=== PATIENT | male | born 1935 | race Caucasian/White ===

== ENCOUNTER 2017-02-24 21:02 | Inpatient (IN) ==
--- NOTE | 2017-02-24 21:29 | Emergency Department Note ---
Disposition Clinical Impression: Pleural effusion, Dizziness Dyspnea Qualifiers: Dyspnea type: unspecified Qualified Code(s): R06.00 - Dyspnea, unspecified Pulmonary edema Qualifiers: Chronicity: acute Qualified Code(s): J81.0 - Acute pulmonary edema Headache Qualifiers: Headache type: unspecified Headache chronicity pattern: unspecified pattern Intractability: not intractable Qualified Code(s): R51 - Headache Disposition: Still a Patient Condition: Fair Forms: ED Satisfaction Letter Time of Disposition: 22:55 Headache HPI - General Chief Complaint: ED Headache Stated Complaint: headache, limbs swelling Time Seen by Provider: 02/24/17 21:28 Mode of arrival: ambulatory Limitations: no limitations Nursing Notes Reviewed: Yes Vital Signs Reviewed: Yes - History of Present Illness HPI Narrative: Patient is an 81 year old male with PMHx of HTN, CAD with stents, chronic headache and dizziness for months. He presents today accompanied with daughter. They have several concerns today. First concern is worsening pitting pedal edema bilaterally. Second concern is worsening of chronic headache over the past week with increased light headedness. Denies vertigo, chest pain, fevers, N/V/D, abdominal pain. Does admit to dyspnea with exertion. Patient states he has had daily headaches for months, occur almost every day, localized in frontal aspect of the head. He does not take any medications for headache. He denies any numbness, tingling, weakness. He does admit to some blurred vision which is new for his usual headaches. Pain Scale: 8 - Related Data Allergies Allergy/AdvReac Type Severity Reaction Status Date / Time No Known Allergies Allergy Verified 02/24/17 21:23 All systems ED: reviewed and negative except as stated. Constitutional: Denies: fever Cardiovascular: Reports: dyspnea on exertion. Denies: chest pain, palpitations Respiratory: Reports: dyspnea. Denies: cough, wheezes, hemoptysis Gastrointestinal: Denies: abdominal pain, nausea, vomiting, diarrhea Genitourinary: Denies: urgency, dysuria, frequency Musculoskeletal: Reports: other. Denies: neck pain Neurological: Reports: headache. Denies: weakness, numbness, paresthesias Headache PMH - Past Medical History Medical history: Reports: coronary artery disease, hyperlipidemia, hypertension , migraine, myocardial infarction, other Psychiatric history: Reports: no psych history - Social History Smoking Status: Former smoker Alcohol use: Reports: occasionally Drug use: Reports: none Physical Exam - General Limitations: no limitations General appearance: alert - Head Head exam: atraumatic, normocephalic, normal inspection - Eye Eye exam: Present: normal appearance, PERRL, EOMI - ENT ENT exam: normal exam, normal oropharynx, mucous membranes moist - Neck Neck exam: Present: normal inspection, full ROM, trachea midline. Absent: tenderness, meningismus - Chest Chest inspection: Present: normal inspection, symmetric chest wall rise - Respiratory Respiratory exam: Present: normal lung sounds bilaterally, other (mild crackle in bilateral LL) - Cardiovascular Cardiovascular exam: Present: regular rate, normal rhythm, normal heart sounds - Abdominal Exam Abdominal exam: Present: soft, Non-Tender. Absent: tenderness, distention, guarding, rebound, rigidity - Extremities Exam Extremities exam: Present: full ROM, pedal edema (pitting edema of bilateral LE) . Absent: tenderness, calf tenderness - Neurological Exam Neurological exam: Present: alert, oriented X3, CN II-XII intact. Absent: motor sensory deficit - Psychiatric Psychiatric exam: Present: normal affect, normal mood - Skin Skin exam: Present: warm, dry, intact, normal color Course Course Narrative: Hypertensive on presentation. Otherwise, the rest of the vitals WNL. Lungs show mild crackles in bilateral LL. Pitting pedal edema bilateral LE. No focal neuro deficits. No neck tenderness of meningeal signs. WIll obtain head CT due to worsened headache with blurred vision. Will also obtain cardiac workup due to dyspnea on exertion, EKG, CXR, trop. 22:55 CXR shows pleural effusions/pulm edema. LAbs pending. EKG showed LBBB. WIll sign out to Dr. Osorio and Dr. Myles Tavera for further care and dispo. Recommend admisison for fluid over. Patient given lasix. Vital Signs Temperature 98.2 F 02/24/17 21:23 Pulse Rate 69 02/24/17 21:23 Respiratory Rate 20 02/24/17 21:23 Blood Pressure 191/80 02/24/17 21:23 O2 Sat by Pulse Oximetry 95 02/24/17 21:23 Temperature 98.2 F 02/24/17 21:23 Pulse Rate 74 02/24/17 22:21 Respiratory Rate 18 02/24/17 22:21 Blood Pressure 188/89 02/24/17 22:21 O2 Sat by Pulse Oximetry 96 02/24/17 22:21 Oxygen Delivery Oxygen Delivery Room Air Headache - MDM Narrative Medical decision making narrative: Hypertensive on presentation. Otherwise, the rest of the vitals WNL. Lungs show mild crackles in bilateral LL. Pitting pedal edema bilateral LE. No focal neuro deficits. No neck tenderness of meningeal signs. WIll obtain head CT due to worsened headache with blurred vision. Will also obtain cardiac workup due to dyspnea on exertion, EKG, CXR, trop. 22:55 CXR shows pleural effusions/pulm edema. LAbs pending. EKG showed LBBB. WIll sign out to Dr. Osorio and Dr. Myles Tavera for further care and dispo. Recommend admisison for fluid over. Patient given lasix. - Medical Records Medical records reviewed: Yes I reviewed the patient's medical records. - Lab Data Lab results reviewed: Yes I reviewed the patient's lab results. - Radiology Data Radiology results reviewed: Yes I reviewed the patient's radiology results. Head CT 02/24/17 21:46 IMPRESSION: No hemorrhage or mass. Underlying atrophy with periventricular and scattered frontal parietal white matter disease, likely due to small-vessel ischemic change Trace mastoid disease D/ / Wilfredo Mandujano MD / Wilfredo Mandujano MD Interpreting Provider: Wilfredo Mandujano MD - EKG Data EKG attestation: Yes I reviewed and interpreted this EKG. EKG results narrative: 02/24/17 at 21:59. NSR, LBBB. Rate 65. Pr 181. QRS 161. QTC 467. Left axis deviation. WIdened QRS. No previous EKG for comparison. S.B.A.R. - S.B.A.R. Situation: Demographics, MOA Background: Presenting Complaint, Relevant PMH, Meds, & Allergies Assessment: Vital Signs, Course and respsone to treatment, Exam Concerns, Patient/Family Expectation, Pertinant Lab Results, Outstanding Labs Recommendation: Barrier(s) to disposition, Recommendation based on pending studies, treatments, or consults S.B.A.R. Report Given to: Dr. Osorio, Dr. Myles Davis Repor Time: 22:56
[2017-02-24] MEDS ORDERED: Furosemide 40 MG/4 ML VIAL IVP ONE (22:51)
[2017-02-24 22:58] LABS: Hematocrit 29.6 % (37.5-50.1); Hemoglobin 9.8 g/dL (12.9-16.9); Immature Platelets 8.3 % (1.1-6.1); Mean Corpuscular HGB Conc 33.1 g/dL (31.6-35.5); Mean Corpuscular Hemoglobin 34.4 pg (28.0-33.3); Mean Corpuscular Volume 103.9 fL (83.0-100.0); Mean Platelet Volume 11.6 fL (9.4-12.4); Nucleated Red Blood Cells 0.6 /100 WBC (0); Platelet Count 133 K/mcL (140-400); Red Blood Count 2.85 M/mcL (4.19-5.50); Red Cell Distribution Width 20.7 % (11.5-14.5)
[2017-02-24 23:11] LABS: BUN/Creatinine Ratio 35 (6-26); Blood Urea Nitrogen 41 mg/dL (8-26); Calcium 8.5 mg/dL (8.6-10.8); Carbon Dioxide 32 mEq/L (19-29); Chloride 102 mEq/L (98-109); Glucose 195 mg/dL (70-99); Osmolality,Calculated 315 (280-300); Sodium 145 mEq/L (136-145); eGFR For African Americans > 60 (> 60); eGFR For Non-African Americans 59 (> 60)
[2017-02-24 23:18] LABS: Lymphocytes # 2.3 K/mcL (0.6-4.6); Neutrophils # 11.3 K/mcL (1.6-8.9)
[2017-02-24 23:33] LABS: Potassium 2.5 mEq/L (3.5-4.5)
[2017-02-24] MEDS ORDERED: Aspirin 81 MG TAB.CHEW PO ONE (23:36)
[2017-02-24] MEDS ORDERED: Heparin 25,000 UNIT/500 ML D5W 25,000 UNIT/500 ML MLS IVC SCH (23:45)
[2017-02-24] MEDS ORDERED: *HR* Heparin 5,000 UNIT/ML VIAL IVP ONE (23:55)
[2017-02-24] MEDS ORDERED: *HR* Heparin 5,000 UNIT/ML VIAL IVP PRN ×2 (23:55)
--- NOTE | 2017-02-25 00:01 | Emergency Department Note ---
Disposition Clinical Impression: Pleural effusion, NSTEMI (non-ST elevated myocardial infarction), Hypokalemia Pulmonary edema Qualifiers: Chronicity: acute Qualified Code(s): J81.0 - Acute pulmonary edema Disposition: Admitted As Inpatient Condition: Fair Referrals: Arie Willis DO [Primary Care Provider] - Forms: ED Satisfaction Letter Time of Disposition: 00:01 General Adult HPI - General Chief complaint: ED Headache Stated complaint: headache, limbs swelling Time Seen by Provider: 02/24/17 21:28 Source: patient Mode of arrival: ambulatory Limitations: no limitations Nursing Notes Reviewed: Yes Vital Signs Reviewed: Yes - History of Present Illness HPI Narrative: 81 year old male who states that he has had increased fluid overload the past few days without diagnosis of CHF. patinet states that he did have chest pain two doays ago which was mild and assocaited with diaphoresis without nausea or vomiting. He is chest pain free now. PAtinet states that he has increased exertional dyspnea and has two cardiac stents from 2001. We accepted sign out from the night team for further evaluation. Pain Scale: 8 - Related Data Allergies Allergy/AdvReac Type Severity Reaction Status Date / Time No Known Allergies Allergy Verified 02/24/17 21:23 Constitutional: Denies: fever Cardiovascular: Reports: dyspnea on exertion. Denies: chest pain, palpitations Respiratory: Reports: dyspnea. Denies: cough, wheezes, hemoptysis Gastrointestinal: Denies: abdominal pain, nausea, vomiting, diarrhea Genitourinary: Denies: urgency, dysuria, frequency Musculoskeletal: Reports: other. Denies: neck pain Neurological: Reports: headache. Denies: weakness, numbness, paresthesias Past Medical History - Past Medical History Medical history: Reports: coronary artery disease, hyperlipidemia, hypertension , migraine, myocardial infarction, other Psychiatric history: Reports: no psych history - Social History Smoking Status: Former smoker Smokeless Tobacco Status: Yes Alcohol use: Reports: occasionally Drug use: Reports: none Physical Exam - General Limitations: no limitations General appearance: alert - Head Head exam: atraumatic, normocephalic, normal inspection - Eye Eye exam: Present: normal appearance, PERRL, EOMI - Expanded Eye Exam Pupils: Left: reactive - ENT ENT exam: normal exam, normal oropharynx, mucous membranes moist - Expanded ENT Exam External ear exam: Present: normal external inspection Mouth exam: Present: normal external inspection Teeth exam: Present: normal inspection Throat exam: Present: normal inspection - Neck Neck exam: Present: normal inspection, full ROM, trachea midline - Chest Chest inspection: Present: normal inspection, symmetric chest wall rise - Respiratory Respiratory exam: Present: normal lung sounds bilaterally - Cardiovascular Cardiovascular exam: Present: regular rate, normal rhythm, normal heart sounds - Abdominal Exam Abdominal exam: Present: soft, Non-Tender. Absent: tenderness, distention, guarding, rebound, rigidity - Extremities Exam Extremities exam: Present: normal inspection, full ROM. Absent: tenderness, pedal edema - Expanded Upper Extremity Exam Shoulder exam: Present: normal inspection, full ROM Arm exam: Present: normal inspection, full ROM Elbow exam: Present: normal inspection, full ROM Forearm/Wrist exam: Present: normal inspection, full ROM Hand exam: Present: normal inspection, full ROM Vascular exam: Normal: capillary refill, radial pulse - Expanded Lower Extremity Exam Hip/Pelvis exam: Present: normal inspection, full ROM Upper leg exam: Present: normal inspection, full ROM Knee exam: Present: normal inspection, full ROM Lower leg exam: Present: normal inspection, full ROM, other (pedal edema (+)3) Ankle exam: Present: normal inspection, full ROM Foot/toe exam: Present: normal inspection, full ROM Neurovascular/Tendon exam: Absent: motor deficit, sensory deficit, tendon deficit - Back Exam Back exam: Present: normal inspection, full ROM. Absent: tenderness - Neurological Exam Neurological exam: Present: alert, oriented X3 - Expanded Neurological Exam Patient oriented to: Present: person, place, time Coma Scale Eye Opening: Spontaneous Coma Scale Motor Response: Obeys Commands Coma Scale Verbal Response: Oriented Coma Scale Total: 15 - Psychiatric Psychiatric exam: Present: normal affect, normal mood - Skin Skin exam: Present: warm, dry, intact, normal color Course Course Narrative: accepted sign out form night team. Elevated troponin and hypokalemia. Will replace and consult cards - Consultations Consultation #1: discussed case with Dr. Kirk and he agrees with starting heparin therapy. Time: 23:45 Consultation #2: discussed case with Dr. Hill and he accepts patient to medicine service Time: 00:00 Vital Signs Temperature 98.2 F 02/24/17 21:23 Pulse Rate 69 02/24/17 21:23 Respiratory Rate 20 02/24/17 21:23 Blood Pressure 191/80 02/24/17 21:23 O2 Sat by Pulse Oximetry 95 02/24/17 21:23 Temperature 98.2 F 02/24/17 21:23 Pulse Rate 63 02/24/17 23:46 Respiratory Rate 18 02/24/17 23:46 Blood Pressure 181/83 02/24/17 23:46 O2 Sat by Pulse Oximetry 95 02/24/17 23:46 Oxygen Delivery Oxygen Delivery Room Air Medical Decision Making - Lab Data Result diagrams: 02/24/17 22:46 02/24/17 22:46 Lab Results 02/24/17 02/24/17 02/24/17 Range/Units 22:46 22:46 22:46 WBC 14.1 H (4.3-11.1) K/mcL RBC 2.85 L (4.19-5.50) M/mcL Hgb 9.8 L (12.9-16.9) g/dL Hct 29.6 L (37.5-50.1) % MCV 103.9 H (83.0-100.0) fL MCH 34.4 H (28.0-33.3) pg MCHC 33.1 (31.6-35.5) g/dL RDW 20.7 H (11.5-14.5) % Plt Count 133 L (140-400) K/mcL MPV 11.6 (9.4-12.4) fL Seg Neutrophils % 80.0 % Lymphocytes % 16.0 % Metamyelocytes % 4.0 H (0) % Neutrophils # 11.3 H (1.6-8.9) K/mcL Lymphocytes # 2.3 (0.6-4.6) K/mcL Nucleated RBCs/100 WBC 0.6 H (0) /100 WBC Immature Plt Fraction 8.3 H (1.1-6.1) % PT (9.4-12.1) Seconds INR APTT (26.0-36.0) Seconds Sodium 145 (136-145) mEq/L Potassium 2.5 L* (3.5-4.5) mEq/L Chloride 102 (98-109) mEq/L Carbon Dioxide 32 H (19-29) mEq/L BUN 41 H (8-26) mg/dL Creatinine 1.18 (0.72-1.25) mg/dL Est GFR ( Amer) > 60 (> 60) Est GFR (Non-Af Amer) 59 L (> 60) BUN/Creatinine Ratio 35 H (6-26) Glucose 195 H (70-99) mg/dL Calculated Osmolality 315 H (280-300) Calcium 8.5 L (8.6-10.8) mg/dL Troponin I 0.97 H* (0-0.03) ng/mL B-Natriuretic Peptide (0-100) pg/mL 02/24/17 02/24/17 Range/Units 22:46 23:11 WBC (4.3-11.1) K/mcL RBC (4.19-5.50) M/mcL Hgb (12.9-16.9) g/dL Hct (37.5-50.1) % MCV (83.0-100.0) fL MCH (28.0-33.3) pg MCHC (31.6-35.5) g/dL RDW (11.5-14.5) % Plt Count (140-400) K/mcL MPV (9.4-12.4) fL Seg Neutrophils % % Lymphocytes % % Metamyelocytes % (0) % Neutrophils # (1.6-8.9) K/mcL Lymphocytes # (0.6-4.6) K/mcL Nucleated RBCs/100 WBC (0) /100 WBC Immature Plt Fraction (1.1-6.1) % PT 11.4 (9.4-12.1) Seconds INR 1.1 APTT 21.7 L (26.0-36.0) Seconds Sodium (136-145) mEq/L Potassium (3.5-4.5) mEq/L Chloride (98-109) mEq/L Carbon Dioxide (19-29) mEq/L BUN (8-26) mg/dL Creatinine (0.72-1.25) mg/dL Est GFR ( Amer) (> 60) Est GFR (Non-Af Amer) (> 60) BUN/Creatinine Ratio (6-26) Glucose (70-99) mg/dL Calculated Osmolality (280-300) Calcium (8.6-10.8) mg/dL Troponin I (0-0.03) ng/mL B-Natriuretic Peptide 501 H (0-100) pg/mL Attestation Statement - Attestation Attestation: I personally interviewed and examined this patient and my medical decision- making was reviewed with the ED Resident Physician, Dr. Osorio. I agree with the documented findings, disposition and treatment plan as described except to the extent set forth below. Patient was a signout from Dr. Winchester at 11 PM tonight, patient's an 81-year-old white male with a remote history of ischemic heart disease with prior stent placement. Patient presented tonight with bilateral lower extremity edema and reports of chest pressure and heaviness that he experienced 48 hours ago which has since resolved with no recurrences. Labs and even ordered patient had been given a dose of Lasix. EKG on arrival showed a left bundle branch block with no prior EKG for comparison so unclear if this was new. Patient with an elevated troponin. On our evaluation patient again denies any form of chest pain pressure or heaviness, no shortness of breath, no diaphoresis, no nausea vomiting patient is in no acute distress here. Patient primarily here with the visible lower extremity pitting edema in his legs bilaterally. X-ray shows evidence of pulmonary edema, CHF and patient also has an elevated BNP. Patient denies any prior history of congestive heart failure in the past. The patient had been seen and taken care of back in [address] Diaz at [facility]. Patient and his live locally and have never followed up with a local authorization specialist and he has not been seen or evaluated by a authorization specialist since that time. The positive troponin and left bundle branch block we immediately notified cardiology and spoke with Dr. Kim upon receiving the abnormal troponin. We did send a copy of EKG to him so he is aware of this left bundle branch morphology. His recommendations were as the patient was pain-free at this time that we start heparin was also given aspirin and admit the patient for medical management at this time. He will consult on the patient and patient was admitted to the medical service. Patient remains chest pain-free and hemodynamically stable at this time.
[2017-02-25 00:24] LABS: INR 1.1; Prothrombin Time 11.4 Seconds (9.4-12.1)
[2017-02-25 00:27] LABS: Activated Partial Thrombo Time 21.7 Seconds (26.0-36.0)
--- NOTE | 2017-02-25 01:07 | Internal Med History&Physical ---
<Ori Blanco - Last Filed: 02/25/17 06:09> Date of Encounter: 02/25/17 Time of Encounter: 01:00 Assessment and Plan (1) CHF (congestive heart failure) Current visit: Yes Status: Acute -No history of CHF. Does not remember ever getting an ECHO. Hasn't seen senior hardware design engineer in 14 years. -Pitting edema to patella. -BNP >500. One time dose lasixs given in ED. Hold Lasixs till K improved. Plan -Will get ECHO -Hold Lasix Qualifiers: Congestive heart failure type: unspecified congestive heart failure type Congestive heart failure chronicity: unspecified congestive heart failure chronicity Qualified Code(s): I50.9 - Heart failure, unspecified (2) Hypokalemia Current visit: Yes Status: Acute -Denies CP, SOB -Takes home HCTZ, likely culprit -IV K replacement started in ED and lasixs given for CHF. -Consider alternative to Lasix and K replacement Plan -Replace K IV and oral -redraw labs in morning -Hold lasixs for now. (3) NSTEMI (non-ST elevated myocardial infarction) Current visit: Yes Status: Acute -Patient complained of CP 2 days ago and ignored it. Currently denies CP or SOB -EKG changes? No old one to compare -Elevated trop, CXR shows bilateral pulmonary edema. -Cardiology consulted, patient placed on heparin drip following consult call Plan -Continue heparin drip -Redraw trop -Continue medication -Follow cardio consult, thank you. (4) Pulmonary edema Current visit: Yes Status: Acute -Revealed on CXR. -Patient has mild cough. Non productive. Denies fever. Lung sounds unimpressive. However, does have elevated WBC -WBC could be chronic, no previous measurement. Patient does not show signs or symptoms of infection. WIll continue to trend. Plan -See above. Qualifiers: Chronicity: acute Qualified Code(s): J81.0 - Acute pulmonary edema (5) Hyperglycemia Current visit: Yes Status: Acute -No history of DM -Elevated BS. WIll redraw and evaluate -Will get HA1C (6) Leukocytosis Current visit: Yes Status: Acute -WBC 14 with left shift...no previous record to compare to. Unsure if infectious or reactive. -Clinically looks fine and not concern for pneumonia. -No F/N/V/D, no recent abx use. -Will not start abx at this time. Will get labs to evaluate Plan -procal, lactate, redraw labs Qualifiers: Leukocytosis type: unspecified Qualified Code(s): D72.829 - Elevated white blood cell count, unspecified Internal Medicine - H&P: HPI Chief complaint: Edema and Headache Admitted From: Emergency Dept Plans for Post Hospital Care: Home History of present illness: Mr. Sterling is a 81 year old male admitted for NSTEMI, Elevated BNP, Peripheral Edema. Patient initially presented to the ED with complaints of bilateral lower leg edema and headache. Headache for months. Located in the front. Dull ache. Not worse today compared to yesterday. Admits to mild bilateral blurry vision. Denies SOB, CP, peripheral weakness, trouble speaking or swallowing. No history of SD/Clots. CT scan in ED negative for mass or acute bleed. The bilateral lower edema has been present for roughly 9 days, got worse over the last couple of days. He has never had this problem before. His last visit to a senior hardware design engineer was 13 years ago for 2 cardiac stent placements. Did complain of CP 2 days ago that he ignored. Troponin drawn. Found to be elevated. EKG showed possible LBBB, no old EKG to be obtained. Cardio called. Patient recommended to be placed on heparin drip. Past Med Surg Social Fam HX - Past Medical History Medical history: coronary artery disease, hyperlipidemia, hypertension, migraine , myocardial infarction, other Psychiatric history: no psych history - Past Surgical History Surgical History: angioplasty/stent (2001, 2 stents) - Social History Smoking Status: Former smoker Smokeless Tobacco Status: Yes Alcohol use: occasionally Drug use: none - Family History Father Adopted: No Race: Living Status: Hx Family Cardiac Disorders: No Hx Family Respiratory Disorders: No Hx Family Cancer: No Hx Family GI Disorders: No Hx Family Genitourinary Disorders: No Hx Family Endocrine Disorder: No Hx Family Musculoskeletal Disorders: No Hx Family Neuromuscular Disorders: No Hx Family Neurologic Disorders: No Hx Family HEENT Disorders: No Hx Family Autoimmune Disorders: No Hx Family Reproductive Disorders: No Hx Family Psychosocial Disorders: No Hx Family Medical Disorders: No Internal Medicine - H&P: Meds Aspirin 81 mg PO DAILY 02/25/17 [History] Lisinopril-HCTZ 10-12.5 10 - 12.5 mg PO DAILY 02/25/17 [History] Allergies No Known Allergies Allergy (Verified 02/24/17 21:23) All Systems PM: A 10-system review of systems was performed and is negative for pertinent findings except as documented above in the HPI. - EENT Eyes: blurry vision, no discharge, no pain, no photophobia - Cardiovascular Cardiovascular ROS IM: no chest pain, no diaphoresis, no dyspnea, no lightheadedness, no palpitations, no syncope - Respiratory Respiratory: cough, no dyspnea, no wheezing, no excessive phlegm production - Gastrointestinal Gastrointestinal: no abdominal pain, no diarrhea, no hematemesis, no hematochezia, no melena, no nausea, no vomiting - Neurological Neurological ROS: no confusion, no convulsions, no focal weakness, no numbness, no tingling, no tremor(s) - Constitutional Vitals: Temp Pulse Resp BP Pulse Ox 98.2 F 63 18 181/83 95 02/24/17 21:23 02/24/17 23:46 02/24/17 23:46 02/24/17 23:46 02/24/17 23:46 General appearance: Present: A&O X 3, pleasant, no acute distress, answers questions appropriately - Head Head exam: Present: atraumatic, normocephalic - Eye Eye exam: Present: PERRL, conjuntiva pink, sclera anicteric Pupils: Present: PERRL - Neck Neck exam general surgery: Present: supple, trachea midline. Absent: lymphadenopathy - Respiratory Respiratory exam: Present: accessory muscle use, rhonchi (mild. bilaterally in lower lobe. ) - Cardiovascular Cardiovascular exam: Present: RRR, +S1, +S2. Absent: diastolic murmur, systolic murmur - GI/Abdominal GI/Abdominal exam: Present: normal bowel sounds, soft. Absent: tenderness - Neurological Exam Neurological exam: Present: alert, oriented X3, no focal deficits, strengths equal and symetr throughout. Absent: facial droop, speech deficit - Psychiatric Psychiatric exam: Present: normal affect, normal mood - Skin Skin exam: Absent: erythema Additional comments: bilateral pitting edema to the patella. Internal Med - H&P Results - Labs CBC & Chem 7: 02/24/17 22:46 02/25/17 05:38 Labs: Short CBC 02/24/17 Range/Units 22:46 WBC 14.1 H (4.3-11.1) K/mcL Hgb 9.8 L (12.9-16.9) g/dL Hct 29.6 L (37.5-50.1) % Plt Count 133 L (140-400) K/mcL Neutrophils # 11.3 H (1.6-8.9) K/mcL BMP 02/24/17 22:46 Sodium 145 Potassium 2.5 L* Chloride 102 Carbon Dioxide 32 H BUN 41 H Creatinine 1.18 Glucose 195 H Calcium 8.5 L Cardiac Enzymes 02/24/17 Range/Units 22:46 Troponin I 0.97 H* (0-0.03) ng/mL - Impressions ITS Impressions Head CT 02/24/17 21:46 IMPRESSION: No hemorrhage or mass. Underlying atrophy with periventricular and scattered frontal parietal white matter disease, likely due to small-vessel ischemic change Trace mastoid disease D/ / Wilfredo Mandujano MD / Wilfredo Mandujano MD Interpreting Provider: Wilfredo Mandujano MD Chest X-Ray 02/24/17 21:56 IMPRESSION: Bilateral airspace disease and pleural effusions, favored to represent pulmonary edema. D/ / Wilfredo Mandujano MD / Wilfredo Mandujano MD Interpreting Provider: Wilfredo Mandujano MD <Evin Ellsworthis - Last Filed: 02/25/17 07:06> Date of Encounter: 02/25/17 Internal Medicine - H&P: HPI History of present illness: Mr. Sterling is a 81 year old male with history significant of CAD/PTCAstents x2/ AMI, HTN, HLD, chr H/As/migraines, OA, former smoker, etc.. Patient admitted to [facility] via the emergency department when he presents in the company of daughter with complaints of fluid retention with pitting lower extremity edema and increasing intensity and frequency of chronic headache symptoms over the last week leading chronic blood loss. up to present. Dyspnea at rest or with exertion and generalized malaise and dizziness and blurred vision accompanying headaches reported. Vital signs were benign chest hypertension with BP of 191- 188/80-[address] head scan demonstrated no acute infarct hemorrhage or mass effect. EKG demonstrated no acute ischemic changes. Sinus rhythm. Rate 65. Left bundle branch block pattern and left axis deviation. Chest x-ray noted bilateral airspace disease with pleural effusions. WBC 14.1 hemoglobin 9.8 platelets 133,000. Differential shows an increase in neutrophils and metamyelocytes. Metabolic panel notes a potassium low at 2.5. Carbon dioxide 32. BUN 41 creatinine 1.18 GFR 59. Glucose 195 osmolality 3:15. Troponin 0.97. BNP 501. PT 11.4 INR 1.1 PTT 21.7. Concerning for pulmonary edema. Preliminary impressions suggest Likely acute on chronic diastolic CHF exacerbation accompanying demand ischemia and type II non-ST elevation myocardial infarction. Screening studies also demonstrated moderate anemia concerning for blood loss and associated nutritional deficiencies. SIRS criterion present upon admission. The patient is at risk for acute decline- morbidity given advanced age, findings and comorbidities. Workup and treatments will proceed comprehensively. The patient was visited and interviewed and examined. I examined this patient and my medical decision-making was reviewed with the Resident Physician, Dr. Ori Blanco. For this encounter, I have reviewed the documentation, treatment plan, and medical decision making. I have had face to face time with this patient. Cumulative laboratory and radiographic data base was, considered and discussed. I agree with the documented findings, disposition and treatment plan as described except to the extent set forth below. Consultative opinion will be sought as clinical circumstances justify. Initial consultative opinion has been requested of cardiology. Hospital course will be dependent upon clinical findings, treatment response and potential consultative interventions. Given the patient's presenting concerns, past medical history, clinical findings and symptoms, he is admitted at this time to undergo further evaluation and disposition. Condition is serious. Prognosis is guarded. CODE STATUS is reported as well. Past Med Surg Social Fam HX - Past Medical History Source: old records reviewed Medical history: arthritis, coronary artery disease, hyperlipidemia, hypertension, migraine, myocardial infarction Psychiatric history: no psych history, other - Past Surgical History Surgical History: angioplasty/stent, other - Social History Occupational status: unemployed, retired Current living situation: Home, With Family Activity Level: Independent ambulation, Mostly sedentary Recent Out of Country Travel Within the Last 8 Weeks: No Exposure or Possible Exposure to Illness During Travel: No All Systems PM: A 10-system review of systems was performed and is negative for pertinent findings except as documented above in the HPI. - Constitutional Vitals: Temp Pulse Resp BP Pulse Ox 98.0 F 62 16 173/76 94 02/25/17 03:37 02/25/17 03:37 02/25/17 03:37 02/25/17 03:37 02/25/17 03:37 Vital Signs Temp Pulse Resp BP Pulse Ox 02/25/17 03:37 98.0 F 62 16 173/76 94 02/25/17 02:38 16 167/70 02/25/17 02:13 62 16 179/70 98 02/25/17 01:30 60 17 194/86 99 02/24/17 23:46 63 18 181/83 95 02/24/17 22:21 74 18 188/89 96 02/24/17 21:23 98.2 F 69 20 191/80 95 Intake and Output 02/24/17 02/24/17 02/25/17 15:59 23:59 07:59 Intake Total 300 / 300 Output Total 900 / 900 Balance -600 / -600 Intake: IV Fluids 300 / 300 Potassium Chloride 10 mEq 300 / 300 /100mL 10 meq In 100 ml @ 100 mls/hr IVPB Q1H [facility] Rx#:[id number] Output: Catheter 900 / 900 Other: Weight 72.575 kg 72.6 kg Patient Weight 02/25/17 23:59 Weight 72.6 kg Internal Med - H&P Results - Labs CBC & Chem 7: 02/24/17 22:46 02/25/17 05:38 Labs: BMP 02/25/17 05:38 Sodium 143 Potassium 2.6 L Chloride 101 Carbon Dioxide 34 H BUN 38 H Creatinine 1.14 Glucose 211 H Calcium 8.3 L Cardiac Enzymes 02/25/17 Range/Units 05:38 Troponin I 1.28 H* (0-0.03) ng/mL Abnormal lab results WBC 14.1 K/mcL (4.3-11.1) H 02/24/17 22:46 RBC 2.85 M/mcL (4.19-5.50) L 02/24/17 22:46 Hgb 9.8 g/dL (12.9-16.9) L 02/24/17 22:46 Hct 29.6 % (37.5-50.1) L 02/24/17 22:46 MCV 103.9 fL (83.0-100.0) H 02/24/17 22:46 MCH 34.4 pg (28.0-33.3) H 02/24/17 22:46 RDW 20.7 % (11.5-14.5) H 02/24/17 22:46 Plt Count 133 K/mcL (140-400) L 02/24/17 22:46 Metamyelocytes % 4.0 % (0) H 02/24/17 22:46 Neutrophils # 11.3 K/mcL (1.6-8.9) H 02/24/17 22:46 Nucleated RBCs/100 WBC 0.6 /100 WBC (0) H 02/24/17 22:46 Immature Plt Fraction 8.3 % (1.1-6.1) H 02/24/17 22:46 APTT 21.7 Seconds (26.0-36.0) L 02/24/17 23:11 Potassium 2.6 mEq/L (3.5-4.5) L 02/25/17 05:38 Carbon Dioxide 34 mEq/L (19-29) H 02/25/17 05:38 BUN 38 mg/dL (8-26) H 02/25/17 05:38 BUN/Creatinine Ratio 33 (6-26) H 02/25/17 05:38 Glucose 211 mg/dL (70-99) H 02/25/17 05:38 Calculated Osmolality 311 (280-300) H 02/25/17 05:38 Calcium 8.3 mg/dL (8.6-10.8) L 02/25/17 05:38 Phosphorus 1.9 mg/dL (2.3-4.7) L 02/25/17 05:38 Troponin I 1.28 ng/mL (0-0.03) H* 02/25/17 05:38 B-Natriuretic Peptide 501 pg/mL (0-100) H 02/24/17 22:46 Laboratory Results WBC 14.1 K/mcL (4.3-11.1) H 02/24/17 22:46 RBC 2.85 M/mcL (4.19-5.50) L 02/24/17 22:46 Hgb 9.8 g/dL (12.9-16.9) L 02/24/17 22:46 Hct 29.6 % (37.5-50.1) L 02/24/17 22:46 MCV 103.9 fL (83.0-100.0) H 02/24/17 22:46 MCH 34.4 pg (28.0-33.3) H 02/24/17 22:46 MCHC 33.1 g/dL (31.6-35.5) 02/24/17 22:46 RDW 20.7 % (11.5-14.5) H 02/24/17 22:46 Plt Count 133 K/mcL (140-400) L 02/24/17 22:46 MPV 11.6 fL (9.4-12.4) 02/24/17 22:46 Seg Neutrophils % 80.0 % 02/24/17 22:46 Lymphocytes % 16.0 % 02/24/17 22:46 Metamyelocytes % 4.0 % (0) H 02/24/17 22:46 Neutrophils # 11.3 K/mcL (1.6-8.9) H 02/24/17 22:46 Lymphocytes # 2.3 K/mcL (0.6-4.6) 02/24/17 22:46 Nucleated RBCs/100 WBC 0.6 /100 WBC (0) H 02/24/17 22:46 Immature Plt Fraction 8.3 % (1.1-6.1) H 02/24/17 22:46 PT 11.4 Seconds (9.4-12.1) 02/24/17 23:11 INR 1.1 02/24/17 23:11 APTT 21.7 Seconds (26.0-36.0) L 02/24/17 23:11 Sodium 143 mEq/L (136-145) 02/25/17 05:38 Potassium 2.6 mEq/L (3.5-4.5) L 02/25/17 05:38 Chloride 101 mEq/L (98-109) 02/25/17 05:38 Carbon Dioxide 34 mEq/L (19-29) H 02/25/17 05:38 BUN 38 mg/dL (8-26) H 02/25/17 05:38 Creatinine 1.14 mg/dL (0.72-1.25) 02/25/17 05:38 Est GFR ( Amer) > 60 (> 60) 02/25/17 05:38 Est GFR (Non-Af Amer) > 60 (> 60) 02/25/17 05:38 BUN/Creatinine Ratio 33 (6-26) H 02/25/17 05:38 Glucose 211 mg/dL (70-99) H 02/25/17 05:38 Calculated Osmolality 311 (280-300) H 02/25/17 05:38 Calcium 8.3 mg/dL (8.6-10.8) L 02/25/17 05:38 Phosphorus 1.9 mg/dL (2.3-4.7) L 02/25/17 05:38 Magnesium 1.8 mg/dL (1.6-2.6) 02/25/17 05:38 Troponin I 1.28 ng/mL (0-0.03) H* 02/25/17 05:38 B-Natriuretic Peptide 501 pg/mL (0-100) H 02/24/17 22:[address] 02/24/17 21:46 IMPRESSION: No hemorrhage or mass. Underlying atrophy with periventricular and scattered frontal parietal white matter disease, likely due to small-vessel ischemic change Trace mastoid disease D/ / Wilfredo Mandujano MD / Wilfredo Mandujano MD Interpreting Provider: Wilfredo Mandujano MD Chest X-Ray 02/24/17 21:56 IMPRESSION: Bilateral airspace disease and pleural effusions, favored to represent pulmonary edema. D/ / Wilfredo Mandujano MD / Wilfredo Mandujano MD Interpreting Provider: Wilfredo Mandujano MD - Attending Attestation My signature below is to certify that this patient is under my care and that I, or the Resident Physician working with me, has had a [id number] encounter with this patient.
[2017-02-25] MEDS ORDERED: Ibuprofen 400 MG TABLET PO PRN (03:27)
[2017-02-25] MEDS ORDERED: Ondansetron 4 MG/2 ML VIAL IVP PRN (03:27)
[2017-02-25] MEDS ORDERED: Naloxone 0.4 MG/ML INJ IVP PRN (03:27)
[2017-02-25] MEDS ORDERED: *HR* HYDROcodone/Acet 5/325 mg TABLET PO PRN (03:27)
[2017-02-25] MEDS ORDERED: Acetaminophen 325 MG TABLET PO PRN (03:27)
[2017-02-25 06:04] LABS: BUN/Creatinine Ratio 33 (6-26); Blood Urea Nitrogen 38 mg/dL (8-26); Calcium 8.3 mg/dL (8.6-10.8); Carbon Dioxide 34 mEq/L (19-29); Chloride 101 mEq/L (98-109); Glucose 211 mg/dL (70-99); Magnesium 1.8 mg/dL (1.6-2.6); Osmolality,Calculated 311 (280-300); Phosphorous 1.9 mg/dL (2.3-4.7); Potassium 2.6 mEq/L (3.5-4.5); Sodium 143 mEq/L (136-145); eGFR For African Americans > 60 (> 60); eGFR For Non-African Americans > 60 (> 60)
[2017-02-25] MEDS ORDERED: Nitroglycerin 0.4 MG TAB.SUBL SL PRN (06:37)
[2017-02-25] MEDS ORDERED: Albuterol 2.5 MG/3 ML NEBULIZER IH PRN (06:37)
[2017-02-25] MEDS ORDERED: *HR* Morphine 2 MG/ML SYRINGE IVP PRN (06:37)
[2017-02-25 07:01] LABS: Hemoglobin A1C 5.7 %
[2017-02-25 07:02] LABS: Albumin 2.8 g/dL (3.5-5.0); Albumin/Globulin Ratio 1.1 (1.1-2.2); Bilirubin,Direct 0.4 mg/dL (0.0-0.5); Bilirubin,Indirect 0.7 mg/dL (0.0-1.2); Bilirubin,Total 1.1 mg/dL (0.2-1.2); Globulin 2.6 g/dL (2.4-3.5); Total Protein 5.4 g/dL (6.0-8.3)
[2017-02-25 07:22] LABS: Thyroid Stimulating Hormone 2.739 mcIU/mL (0.350-4.840)
[2017-02-25] MEDS ORDERED: Magnesium Sulfate 2 GM in D5% in Water 100 ML IVPB ONE (07:54)
[2017-02-25] MEDS: Potassium Chloride Elixir 20 MEQ/15 ML UDC PO SCH ×2 (09:27→19:49)
[2017-02-25] MEDS: Lisinopril 20 MG TABLET PO SCH (09:27)
[2017-02-25] MEDS: Aspirin 81 MG TAB.CHEW PO SCH (09:27)
[2017-02-25 10:01] LABS: Basophils # 0.1 K/mcL (0.0-0.2); Basophils % 0.3 %; Hematocrit 29.5 % (37.5-50.1); Hemoglobin 9.8 g/dL (12.9-16.9); Immature Granulocytes % 6.8 % (0-4); Lymphocytes % 6.2 %; Mean Corpuscular HGB Conc 33.2 g/dL (31.6-35.5); Mean Corpuscular Hemoglobin 34.6 pg (28.0-33.3); Mean Corpuscular Volume 104.2 fL (83.0-100.0); Monocytes # 1.2 K/mcL (0.0-1.3); Monocytes % 7.5 %; Neutrophils # 12.6 K/mcL (1.6-8.9); Nucleated Red Blood Cells 0.4 /100 WBC (0); Platelet Count 139 K/mcL (140-400); Red Blood Count 2.83 M/mcL (4.19-5.50); Segmented Neutrophils % 79.2 %
[2017-02-25 10:18] LABS: Platelet Estimate Slight Decrease (Normal); Polychromasia 1+ (Not Present); Smudge Cells Present (Not Present)
--- NOTE | 2017-02-25 10:52 | Cardiology Consult Note ---
Date of Encounter: 02/25/17 Time of Encounter: 10:49 Assessment and Plan (1) NSTEMI (non-ST elevated myocardial infarction) Current Visit: Yes Status: Acute Troponin 0.97, 1.28. EKG with LBBB, unsure if new. Hx of CAD and PCI ~14 years ago. Currently chest pain free. On heparin gtt, ASA, Statin, BB. Will Plavix load with 600mg once. Recommend [facility]. R/B/A discussed. Pt agreeable, prefers tomorrow, which is reasonable given his hypokalemia and fluid volume overload. LHC tomorrow. Check echo. (2) Acute CHF (congestive heart failure) Current Visit: Yes Status: Acute BNP 501, CXR with pleural effusions. Worsening dyspnea and lower extremity edema. 2.6 today. Will replace. Mag 1.8. Recommend IV Lasix 40mg BID. Recommend strict I/Os, daily weights, NA and fluid restriction. Echo ordered to determine systolic vs. diastolic CHF. Continue BB and KYLAH-I. If EF reduced, will switch BB to Toprol XL. Qualifiers: Congestive heart failure type: unspecified congestive heart failure type Qualified Code(s): I50.9 - Heart failure, unspecified (3) Essential hypertension Current Visit: Yes Status: Acute Currently not well controlled. Initiating IV Lasix. Order PRN IV Hydralazine. Adjust PO antihypertensives as necessary. Increase BB. (4) CAD (coronary artery disease) Current Visit: Yes Status: Acute Hx of CAD and PCI ~14 years ago. ASA, Statin, BB. Qualifiers: Coronary Disease-Associated Artery/Lesion type: [place] artery [place] vs. transplanted heart: [place] heart Associated angina: angina presence unspecified Qualified Code(s): I25.10 - Atherosclerotic heart disease of [place] coronary artery without angina pectoris Discussion w patient/family: The assessment and plan as outlined above was discussed with the patient and/or family members who expressed understanding and agreement. All questions were answered. Thank you for involving us in the care of your patient. Please call with any questions. I will discuss all the above with Dr. Sifuentes and make changes as necessary. History of Present Illness Consult date: 02/25/17 Requesting physician: Evin Ellsworth Consult reason: NSTEMI, CHF Chief complaint: BLE edema History of present illness: Mr. Sterling is a 81 year old male with PMH of of CAD s/p PCI approximately 14 years ago. He presented with complaints of bilateral lower leg edema and headache. Headache for months. Located in the front. Dull ache. Head CT negative for mass or acute bleed. The bilateral lower edema has been present for roughly over recent days. Daughter at bedside states she has noticed he has been more short of breath over recent weeks. Did complain of CP 2 days ago that he ignored. Troponin found to be 0.97, 1.28. BNP 501. CXR with pleural effusions. 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 EKG with LBBB, unsure if new. Pt currently chest pain free. Past Med Surg Social Fam HX - Past Medical History Medical history: arthritis, coronary artery disease, hyperlipidemia, hypertension, migraine, myocardial infarction Psychiatric history: no psych history, other - Past Surgical History Surgical History: angioplasty/stent, other - Social History Smoking Status: Former smoker Smokeless Tobacco Status: Yes Alcohol use: occasionally Drug use: none - Family History Father Adopted: No Race: Living Status: Hx Family Cardiac Disorders: No Hx Family Respiratory Disorders: No Hx Family Cancer: No Hx Family GI Disorders: No Hx Family Genitourinary Disorders: No Hx Family Endocrine Disorder: No Hx Family Musculoskeletal Disorders: No Hx Family Neuromuscular Disorders: No Hx Family Neurologic Disorders: No Hx Family HEENT Disorders: No Hx Family Autoimmune Disorders: No Hx Family Reproductive Disorders: No Hx Family Psychosocial Disorders: No Hx Family Medical Disorders: No Medications and Allergies Aspirin 81 mg PO DAILY 02/25/17 [History] Lisinopril/Hydrochlorothiazide [Zestoretic 10-12.5 mg Tablet] 1 tab PO DAILY [History] Vitamin B Complex [B Complex] 1 tab PO DAILY 02/25/17 [History] Allergies metoprolol [From Toprol XL] Adverse Reaction (Verified 02/25/17 08:46) See Comments PULSE DROPPED All Systems Review: A 10-system review of systems was performed and is negative for pertinent findings except as documented above in the HPI. - Cardiovascular Cardiovascular: as per HPI, chest pain at rest, dyspnea on exertion, leg edema - Respiratory Respiratory: cough, dyspnea Physical Examination Vital Signs, Last 4 Hours Temp Pulse Resp BP Pulse Ox 02/25/17 10:39 97.8 F 71 17 186/71 94 02/25/17 07:24 98.4 F 58 17 183/72 94 Vital Signs Temp Pulse Resp BP Pulse Ox 02/25/17 10:39 97.8 F 71 17 186/71 94 02/25/17 07:24 98.4 F 58 17 183/72 94 02/25/17 03:37 98.0 F 62 16 173/76 94 02/25/17 02:38 16 167/70 02/25/17 02:13 62 16 179/70 98 02/25/17 01:30 60 17 194/86 99 02/24/17 23:46 63 18 181/83 95 02/24/17 22:21 74 18 188/89 96 02/24/17 21:23 98.2 F 69 20 191/80 95 Intake and Output 02/24/17 02/25/17 02/25/17 23:59 07:59 15:59 Intake Total 300 / 300 Output Total 900 / 900 Balance -600 / -600 Intake: IV Fluids 300 / 300 Potassium Chloride 10 mEq 300 / 300 /100mL 10 meq In 100 ml @ 100 mls/hr IVPB Q[facility]H [facility] Rx#:[id number] Output: Catheter 900 / 900 Other: Weight 72.575 kg 72.6 kg Patient Weight 02/25/17 23:59 Weight 72.6 kg General: Conversant, No Apparent Distress HEENT: Atraumatic, Normocephaly, Mucus Membranes Moist Neck: Normal carotid pulses Cardiac: Reg Rate and Rhythm, Normal S1 and S2, No Murmur Lungs: Other (diminished) Neuro: Alert and responsive, No focal deficits noted Abdomen: Soft, Non-Tender Skin: No rashes noted on visualized skin Musculoskeletal: No Chest Wall Tenderness Extremities: No Clubbing, No Cyanosis, Other (+2 BLE edema) Results 02/25/17 09:35 02/25/17 05:38 Lab Results 02/25/17 02/25/17 02/25/17 05:38 05:38 06:24 WBC Hgb Hct Plt Count Sodium 143 Potassium 2.6 L Chloride 101 Carbon Dioxide 34 H BUN 38 H Creatinine 1.14 Glucose 211 H Calcium 8.3 L Magnesium 1.8 Total Bilirubin 1.1 AST 29 ALT 44 Alkaline Phosphatase 97 Troponin I 1.28 H* TSH 2.739 02/25/17 09:35 WBC 15.9 H Hgb 9.8 L Hct 29.5 L Plt Count 139 L Sodium Potassium Chloride Carbon Dioxide BUN Creatinine Glucose Calcium Magnesium Total Bilirubin AST ALT Alkaline Phosphatase Troponin I TSH Short CBC 02/25/17 02/24/17 Range/Units 09:35 22:46 WBC 15.9 H 14.1 H (4.3-11.1) K/mcL Hgb 9.8 L 9.8 L (12.9-16.9) g/dL Hct 29.5 L 29.6 L (37.5-50.1) % Plt Count 139 L 133 L (140-400) K/mcL Neutrophils # 12.6 H 11.3 H (1.6-8.9) K/mcL BMP 02/25/17 02/24/17 Range/Units 05:38 22:46 Sodium 143 145 (136-145) mEq/L Potassium 2.6 L 2.5 L* (3.5-4.5) mEq/L Chloride 101 102 (98-109) mEq/L Carbon Dioxide 34 H 32 H (19-29) mEq/L BUN 38 H 41 H (8-26) mg/dL Creatinine 1.14 1.18 (0.72-1.25) mg/dL Glucose 211 H 195 H (70-99) mg/dL Calcium 8.3 L 8.5 L (8.6-10.8) mg/dL Cardiac Enzymes 02/25/17 02/24/17 Range/Units 05:38 22:46 Troponin I 1.28 H* 0.97 H* (0-0.03) ng/mL Liver Function 02/25/17 Range/Units 06:24 Total Bilirubin 1.1 (0.2-1.2) mg/dL Direct Bilirubin 0.4 (0.0-0.5) mg/dL AST 29 (5-34) Units/L ALT 44 (0-55) Units/L Alkaline Phosphatase 97 (38-126) Units/L Albumin 2.8 L (3.5-5.0) g/dL Impressions Head CT 02/24/17 21:46 IMPRESSION: No hemorrhage or mass. Underlying atrophy with periventricular and scattered frontal parietal white matter disease, likely due to small-vessel ischemic change Trace mastoid disease D/ / Wilfredo Mandujano MD / Wilfredo Mandujano MD Interpreting Provider: Wilfredo Mandujano MD Chest X-Ray 02/24/17 21:56 IMPRESSION: Bilateral airspace disease and pleural effusions, favored to represent pulmonary edema. D/ / Wilfredo Mandujano MD / Wilfredo Mandujano MD Interpreting Provider: Wilfredo Mandujano MD Active Medications Albuterol Sulfate (Proventil Neb) 2.5 mg IH Q2H PRN PRN Reason: Shortness Of Breath/Wheezing Stop: 08/27/17 06:38 Aspirin (Aspirin) 81 mg PO DAILY CANDI Stop: 08/27/17 09:01 Last Admin: 02/25/17 09:27 Dose: 81 mg Docusate Sodium (Colace) 100 mg PO BID PRN PRN Reason: Constipation Stop: 08/27/17 03:28 Heparin Sodium (Porcine) (Heparin) 4,000 unit IVP Q6HR PRN PRN Reason: SEE COMMENTS Stop: 08/26/17 23:56 Heparin Sodium (Porcine) (Heparin) 2,000 unit IVP Q6H PRN PRN Reason: SEE COMMENTS Stop: 08/26/17 23:56 Heparin Sodium/Dextrose (Heparin 25,000 Unit/500 Ml D5w) 25,000 unit in 500 mls @ 17.418 mls/hr IVC .Q24H CANDI; 12 UNIT/KG/HR PRN Reason: Protocol Stop: 08/26/17 23:46 Last Admin: 02/25/17 06:08 Dose: 12 unit/kg/hr, 17.418 mls/hr Lisinopril (Zestril) 40 mg PO DAILY CANDI PRN Reason: Protocol Stop: 08/27/17 09:01 Last Admin: 02/25/17 09:27 Dose: 40 mg Metoprolol Tartrate (Lopressor) 12.5 mg PO BID CANDI Stop: 08/27/17 09:01 Morphine Sulfate (Morphine Sulfate) 2 mg IVP Q4HR PRN PRN Reason: Severe Pain (7-10) Stop: 08/27/17 06:38 Naloxone HCl (Narcan) 0.4 mg IVP Q2MIN PRN PRN Reason: Opioid Reversal Stop: 08/27/17 03:28 Nitroglycerin (Nitroglycerin) 0.4 mg SL Q5MIN PRN PRN Reason: Chest Pain Stop: 08/27/17 06:38 Omeprazole (Prilosec) 20 mg PO DAILY@0630 CANDI PRN Reason: Protocol Stop: 08/28/17 06:31 Ondansetron HCl (Zofran) 4 mg IVP Q8HR PRN PRN Reason: Nausea And Vomiting Stop: 08/27/17 03:28 Potassium Chloride (Potassium Chloride) 20 meq PO BID CANDI Stop: 08/27/17 09:01 Last Admin: 02/25/17 09:27 Dose: 20 meq Rosuvastatin Calcium (Crestor) 20 mg PO HS CANDI Stop: 08/27/17 21:01 - Imaging and Cardiology Chest Xray: report reviewed - EKG Interpretation EKG results cardiology: personally reviewed (SR, LBBB.), other (24 hour tele AVG HR 75, SR.) Consult Discharge Plan - Plan Referrals: Arie Willis DO [Primary Care Provider] -
[2017-02-25] MEDS ORDERED: Potassium Chloride 40 MEQ, Lidocaine 1% 2 ML in D5% in Water 500 ML IVPB ONE (11:08)
--- NOTE | 2017-02-25 11:15 | Internal Med Progress Note ---
Date of Encounter: 02/25/17 Time of Encounter: 11:13 - Assessment and plan (1) Pulmonary edema Current Visit: Yes Status: Acute Assessment and plan: Secondary to CHF exacerbation and NSTEMI Management as in CHF exacerbation Qualifiers: Chronicity: acute Qualified Code(s): J81.0 - Acute pulmonary edema (2) NSTEMI (non-ST elevated myocardial infarction) Current Visit: Yes Status: Acute Assessment and plan: Troponin 0.97-1.28. Patient with no prior EKG records her ebut EKG with LBBB Cardiology ahs been consulted Continue heparin gtt, ASA, Statin, BB, ACEI, Plavix Follow ECHO reports For [facility] a.m . (3) Hypokalemia Current Visit: Yes Status: Acute Assessment and plan: Etiology unknown Possibly from poor oral intake Replace aggressively Check K p.m today and rpt chem a.m Replace mag and PO4 (4) Hyperglycemia Current Visit: Yes Status: Acute Assessment and plan: Possibly as a reaction to stress A1C is 5.7 Insulin sliding scale prn (5) Leukocytosis Current Visit: Yes Status: Acute Assessment and plan: Possibly from ID Patient with no fever, tachycardia, no source of infection at this time Lactic acid is however elevated Will obtain UA and Urine culture Qualifiers: Leukocytosis type: unspecified Qualified Code(s): D72.829 - Elevated white blood cell count, unspecified (6) Acute CHF (congestive heart failure) Current Visit: Yes Status: Acute Assessment and plan: Continue diuresis FLuid restriction diet Strict I/O Daily weights Monitor K and Chem Follow ECHO For [facility] when euvolemic Qualifiers: Congestive heart failure type: unspecified congestive heart failure type Qualified Code(s): I50.9 - Heart failure, unspecified (7) Essential hypertension Current Visit: Yes Status: Chronic Assessment and plan: Uncontrolled Increased Lisinopril and added toprol Continue to monitor (8) CAD (coronary artery disease) Current Visit: Yes Status: Chronic Assessment and plan: Chronic, now with NSETMI Management as in NSTEMI Appreciate cardiology input Qualifiers: Coronary Disease-Associated Artery/Lesion type: [place] artery [place] vs. transplanted heart: [place] heart Associated angina: angina presence unspecified Qualified Code(s): I25.10 - Atherosclerotic heart disease of [place] coronary artery without angina pectoris - Subjective Interval history: Seen at bedside 81 Y.O M being managed for NSTEMI, CHFE, Hypokalemia Leukocytosis and Pulmonary edema Denied new complains, sitting up in chair Reports his headaches persist but the dizziness has improved - Constitutional Vitals: Temp Pulse Resp BP Pulse Ox 97.8 F 71 17 186/71 94 02/25/17 10:39 02/25/17 10:39 02/25/17 10:39 02/25/17 10:39 02/25/17 10:39 General appearance: Present: A&O X 3, pleasant, no acute distress, answers questions appropriately - Head Head exam: Present: atraumatic, normocephalic - Eye Eye exam: Present: PERRL, conjuntiva pink, sclera anicteric Pupils: Present: PERRL - Neck Neck exam general surgery: Present: supple, trachea midline. Absent: lymphadenopathy - Respiratory Respiratory exam: Present: CTAB. Absent: accessory muscle use, rales, rhonchi, wheezes - Cardiovascular Cardiovascular exam: Present: RRR, +S1, +S2. Absent: diastolic murmur, gallop, rubs, systolic murmur - GI/Abdominal GI/Abdominal exam: Present: normal bowel sounds, soft, no peritoneal signs. Absent: distended, tenderness - Extremities Exam Additional comments: 3+ pitting pedal edema bilaterally - Neurological Exam Neurological exam: Present: alert, CN II-XII intact, oriented X3, no focal deficits. Absent: pronater drift, facial droop, speech deficit - Skin Skin exam: Present: dry, intact Internal Medicine: Result - Labs CBC & Chem 7: 02/25/17 12:18 02/25/17 05:38 Labs: Short CBC 02/25/17 Range/Units 09:35 WBC 15.9 H (4.3-11.1) K/mcL Hgb 9.8 L (12.9-16.9) g/dL Hct 29.5 L (37.5-50.1) % Plt Count 139 L (140-400) K/mcL Neutrophils # 12.6 H (1.6-8.9) K/mcL BMP 02/25/17 05:38 Sodium 143 Potassium 2.6 L Chloride 101 Carbon Dioxide 34 H BUN 38 H Creatinine 1.14 Glucose 211 H Calcium 8.3 L Cardiac Enzymes 02/25/17 Range/Units 05:38 Troponin I 1.28 H* (0-0.03) ng/mL Liver Function 02/25/17 Range/Units 06:24 Total Bilirubin 1.1 (0.2-1.2) mg/dL Direct Bilirubin 0.4 (0.0-0.5) mg/dL AST 29 (5-34) Units/L ALT 44 (0-55) Units/L Alkaline Phosphatase 97 (38-126) Units/L Albumin 2.8 L (3.5-5.0) g/dL - ABG Interpretation ABG results: PT/INR, D-dimer PT 11.4 Seconds (9.4-12.1) 02/24/17 23:11 Consult Discharge Plan - Plan Referrals: Arie Willis DO [Primary Care Provider] -
[2017-02-25] MEDS: Furosemide 40 MG/4 ML VIAL IVP SCH ×2 (11:27→16:46)
[2017-02-25] MEDS: Metoprolol XL (24 HR) Succ 25 MG TAB.ER.24H PO SCH (11:28)
[2017-02-25 13:03] LABS: Hematocrit 32.9 % (37.5-50.1); Mean Corpuscular HGB Conc 33.4 g/dL (31.6-35.5); Mean Corpuscular Hemoglobin 34.8 pg (28.0-33.3); Mean Corpuscular Volume 104.1 fL (83.0-100.0); Mean Platelet Volume 12.6 fL (9.4-12.4); Nucleated Red Blood Cells 0.4 /100 WBC (0); Platelet Count 160 K/mcL (140-400); Red Blood Count 3.16 M/mcL (4.19-5.50); Red Cell Distribution Width 21.1 % (11.5-14.5)
[2017-02-25 14:02] LABS: Lymphocytes # 2.2 K/mcL (0.6-4.6); Lymphocytes % 10.9 %; Monocytes # 2.5 K/mcL (0.0-1.3); Monocytes % 12.7 %; Neutrophils # 15.1 K/mcL (1.6-8.9); Segmented Neutrophils % 76.4 %
[2017-02-25 14:03] LABS: Poikilocytosis 1+ (Not Present)
[2017-02-25 14:04] LABS: Platelet Estimate Normal (Normal); Polychromasia 1+ (Not Present)
[2017-02-25 14:09] LABS: Bilirubin,Urine Negative (Negative); Blood,Urine Large (Negative); Clarity,Urine Cloudy (Clear); Color,Urine Yellow (Yellow); Glucose,Urine (UA) Normal (Normal); Ketones,Urine Negative (Negative); Leukocyte Esterase,Urine Trace (Negative); Nitrite,Urine Negative (Negative); PH,Urine 6.5 pH Units (5.0-8.0); Protein,Urine 100 mg/dL (Neg-Trace); Specific Gravity,Urine 1.012 (1.010-1.025); Urobilinogen,Urine Normal (Normal)
[2017-02-25 14:11] LABS: Bacteria,Urine None Seen per hpf (None-Few); Hyaline Casts,Urine None Seen per lpf (None-Few); RBC,Urine TNTC per hpf (0-3); Squamous Epithelial Cell,Urine Moderate per lpf (None-Few)
--- NOTE | 2017-02-25 18:34 | Electrocardiograph Report ---
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
--- NOTE | 2017-02-25 18:42 | Electrocardiograph Report ---
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
[2017-02-25] MEDS ORDERED: *HR* Metoprolol 5 MG/5 ML VIAL IVP ONE ×2 (22:18→22:21)
[2017-02-26] MEDS ORDERED: 0.9 % Sodium Chloride 500 ML ONE (01:45)
[2017-02-26 01:53] LABS: Basophils % 0.2 %; Eosinophils % 0.1 %; Hematocrit 29.6 % (37.5-50.1); Immature Granulocytes % 4.9 % (0-4); Lymphocytes % 5.3 %; Mean Corpuscular HGB Conc 33.8 g/dL (31.6-35.5); Mean Corpuscular Hemoglobin 35.1 pg (28.0-33.3); Mean Corpuscular Volume 103.9 fL (83.0-100.0); Mean Platelet Volume 12.5 fL (9.4-12.4); Monocytes # 1.2 K/mcL (0.0-1.3); Monocytes % 6.6 %; Neutrophils # 15.2 K/mcL (1.6-8.9); Nucleated Red Blood Cells 0.5 /100 WBC (0); Platelet Count 162 K/mcL (140-400); Red Blood Count 2.85 M/mcL (4.19-5.50); Red Cell Distribution Width 21.2 % (11.5-14.5); Segmented Neutrophils % 82.9 %
[2017-02-26 02:10] LABS: BUN/Creatinine Ratio 28 (6-26); Blood Urea Nitrogen 38 mg/dL (8-26); Calcium 7.7 mg/dL (8.6-10.8); Carbon Dioxide 33 mEq/L (19-29); Chloride 97 mEq/L (98-109); Glucose 166 mg/dL (70-99); Osmolality,Calculated 303 (280-300); Potassium 2.8 mEq/L (3.5-4.5); Sodium 140 mEq/L (136-145); eGFR For African Americans > 60 (> 60); eGFR For Non-African Americans 50 (> 60)
[2017-02-26] MEDS: 0.9 % Sodium Chloride 500 ML IVC SCH (02:47)
[2017-02-26] MEDS ORDERED: Potassium Chloride Elixir 20 MEQ/15 ML UDC PO ONE (07:50)
--- NOTE | 2017-02-26 08:41 | ECHO - Doppler Report ---
Echocardiogram Name: Aydin Sterling Date of Study: 02/25/2017 Date: 1935 Ht: 65.0 in Medical Record#: [id number] Age: 81 Wt: 160.0 lb Gender: Male BSA: 1.8 Order #: [id number] Location: [facility] Room #: 2A62 Reading Physician: Jen Duke DO Exhibit Builder: Brenda Boss Ordering Physician: Amber Carr MD Primary Physician: Siena Willis DO Indications: New onset CHF Impressions: AFIB with HR 110-150's. LVEF 60-65%. Normal left ventricular size and systolic function. Increased LV wall thickness. Indeterminate left ventricular diastolic function. Normal right ventricular size and function. Aortic sclerosis. Mild mitral regurgitation. Mild-moderate tricuspid regurgitation. Mild pulmonary hypertension. Left Ventricular Wall Motion: Rest Echo Findings All wall segments showed normal motion. Findings: Study Quality * Technically sub-optimal due to clinical status. ECG Findings * Atrial fibrillation. Left Ventricle * LVEF 60-65%. * Indeterminate diastolic function. * Mild to moderate increased LV wall thickness most prominent at the septum. Aorta * Suboptimally visualized. Aortic Valve * No aortic regurgitation. * Aortic valve not well visualized. * No aortic stenosis. * Aortic sclerosis. Mitral Valve * Mild mitral annular calcification * Normal mitral valve structure. * No mitral stenosis. * Mild mitral regurgitation. Tricuspid Valve * Tricuspid valve not well visualized. * Mild-moderate tricuspid regurgitation. * Estimated RA pressure is 3 mmHg. * Estimated RVSP is 47 mmHg. * Mild pulmonary hypertension. Pulmonic Valve * Pulmonic valve is not well visualized. * No pulmonic stenosis. * No pulmonic regurgitation. Pulmonary Artery * Pulmonary artery not well visualized. Right Atrium * Normal right atrial size. Right Ventricle * Normal right ventricular structure and function. Left Atrium * Moderately dilated left atrium. Interatrial Septum * No evidence of PFO by color Doppler. Pericardium * There is no pericardial effusion present. IVC * Normal IVC dimensions and inspiratory collapse. History Hypertension Hypercholesteremia Years 30 Packs 3 Congestive Heart Failure Measurements: BP: 179/ 75 2D Normal Values RVIDd: 3.00 cm <2.7 cm IVSd: 1.50 cm 0.6 - 1.0 cm LVIDd: 4.30 cm 3.7 - 5.6 cm LVPWd: 1.20 cm 0.6 - 1.1 cm LVIDs: 3.20 cm 1.5 - 3.6 cm AO: 2.90 cm < 4.0 cm LA: 4.10 cm 2.0 - 4.0cm %FS: 25.60 cm >25 % LA volume: 93 Mitral Valve Peak E:1.07 m/sec Peak E' Lat Ad:12 cm/s Peak E' Med Ad:6.92 cm/s E/E' Lat Ratio:8.9 E/E' Med Ratio:15.5 LVOT Peak Ad:1.19 m/sec Mean Ad:.68 m/sec Peak Grad:6.00 mmHg Mean Grad:2.00 mmHg Aortic Valve Peak Ad:2.64 m/sec Mean Da:1.74 m/sec Peak Grad:28.00 mmHg Mean Grad:14.00 mmHg Tricuspid Valve TV Regurg Peak Grad: 44.00mmHg TV Regurg Peak Ad: 3.33m/sec Updated by Jen Duke on 02/26/2017 8:30:58 AM electronically signed on 02/26/2017 8:35:44 AM with status of Final Wall Motion [place]: 1=Normal, 2=Hypokinesis, 3=Akinesis, 4=Dyskinesis, 5=Aneurysmal, 6=Hyperkinetic, X=Not Visualized (Blank)=Missing
[2017-02-26] MEDS ORDERED: *HR* LORazepam 0.5 MG TABLET PO ONE (09:23)
[2017-02-26] MEDS: Lisinopril 20 MG TABLET PO SCH (09:35)
[2017-02-26] MEDS: Aspirin 81 MG TAB.CHEW PO SCH (09:35)
[2017-02-26] MEDS: Metoprolol XL (24 HR) Succ 25 MG TAB.ER.24H PO SCH (09:35)
[2017-02-26] MEDS: Potassium Chloride Elixir 20 MEQ/15 ML UDC PO SCH (09:36)
[2017-02-26 10:51] LABS: BUN/Creatinine Ratio 31 (6-26); Blood Urea Nitrogen 42 mg/dL (8-26); Calcium 7.7 mg/dL (8.6-10.8); Carbon Dioxide 33 mEq/L (19-29); Chloride 98 mEq/L (98-109); Glucose 143 mg/dL (70-99); Osmolality,Calculated 305 (280-300); Potassium 3.5 mEq/L (3.5-4.5); Sodium 141 mEq/L (136-145); eGFR For African Americans > 60 (> 60); eGFR For Non-African Americans 51 (> 60)
--- NOTE | 2017-02-26 10:52 | Event Note ---
Date of Encounter: 02/26/17 Time of Encounter: 10:48 - Cardiology Event Note Echo resulted--EF 60-65%. Normal wall motion. Pt went into A-Fib with RVR, was started on Cardizem gtt and converted back into SR. Lasted <24 hours. Will not anticoagulate at this time. Currently with nose bleed that started this AM. Stopped heparin gtt since it has been on for >24 hours. ENT consulted. H&H stable. Blood noted in ramirez, but pt has been pulling at it. Discussed with Dr. Sifuentes and Dr. Malone. Will proceed with [facility] today. Pt and family agreeable. Creatinine bumped to 1.37. Will decrease Lasix to daily. I/O net negative 2438mL. Hold KYLAH-I. Continue to follow.
--- NOTE | 2017-02-26 12:27 | Internal Med Progress Note ---
Date of Encounter: 02/26/17 Time of Encounter: 12:25 - Assessment and plan (1) Pulmonary edema Current Visit: Yes Status: Acute Assessment and plan: Secondary to CHF exacerbation and NSTEMI Management as in CHF exacerbation Qualifiers: Chronicity: acute Qualified Code(s): J81.0 - Acute pulmonary edema (2) NSTEMI (non-ST elevated myocardial infarction) Current Visit: Yes Status: Acute Assessment and plan: Troponin 0.97-1.28. Patient with no prior EKG records here but EKG with LBBB Cardiology was consulted and patient loaded with plavix and continued with heprain heparin held this a.m due to epistaxis ACEI held due to elevated CR above baseline 1.3(1.19 02/25) Continue ASA, Statin, Plavix, BB ECHO -Afib with RVR, LVEF 60-65%, N LV Size and function, Indeterminate LV diastolic function, , Mild Pulm HTN For [facility] today I/O -2.5L Lasix held due to worsening renal function, severe hypokalemia , will start at a lower dose if rpt K and Chem shows improvement Cardiology input appreciated . (3) Hypokalemia Current Visit: Yes Status: Acute Assessment and plan: Etiology unknown Possibly from poor oral intake Replaced aggressively Continue to monitor (4) Hyperglycemia Current Visit: Yes Status: Acute Assessment and plan: Possibly as a reaction to stress A1C is 5.7 Insulin sliding scale prn (5) Leukocytosis Current Visit: Yes Status: Acute Assessment and plan: Possibly from [place] Patient with no fever, tachycardia, no source of infection at this time Lactic acid is however elevated UA noted for hematuria, no nitrite, trace LE, moderate WBC Send urine culture and start ceftriaxone empirically May de-escalate if urine culture is negative Qualifiers: Leukocytosis type: unspecified Qualified Code(s): D72.829 - Elevated white blood cell count, unspecified (6) Acute CHF (congestive heart failure) Current Visit: Yes Status: Acute Assessment and plan: Continue diuresis FLuid restriction diet Strict I/O Daily weights Monitor K and Chem As in NSTEMI Qualifiers: Congestive heart failure type: diastolic Qualified Code(s): I50.31 - Acute diastolic (congestive) heart failure (7) Essential hypertension Current Visit: Yes Status: Chronic Assessment and plan: Controlled, continue toprol (8) CAD (coronary artery disease) Current Visit: Yes Status: Chronic Assessment and plan: Chronic, now with NSETMI Management as in NSTEMI Appreciate cardiology input Qualifiers: Coronary Disease-Associated Artery/Lesion type: [place] artery [place] vs. transplanted heart: [place] heart Associated angina: angina presence unspecified Qualified Code(s): I25.10 - Atherosclerotic heart disease of [place] coronary artery without angina pectoris - Subjective Interval history: Seen at bedside 81 Y.O M being managed for NSTEMI, CHFE, Hypokalemia Leukocytosis and Pulmonary edema Denied new complains, sitting up in bed Developed epistaxis this a.m, consulted ENT and held haprain H/H stable, also had hematuria yesterday, mild Creatinine increased today, lasix and ACEI held. I/O -2.5L Worsening leukocytosis possibly due to dehydration, UA is unremarkable Awaiting [facility] today - Constitutional Vitals: Temp Pulse Resp BP Pulse Ox 98.2 F 62 15 135/69 95 02/26/17 12:06 02/26/17 12:06 02/26/17 12:06 02/26/17 12:06 02/26/17 12:06 General appearance: Present: A&O X 3, pleasant, no acute distress, answers questions appropriately - Head Head exam: Present: atraumatic, normocephalic - Eye Eye exam: Present: PERRL, conjuntiva pink, sclera anicteric Pupils: Present: PERRL - ENT Additional comments: Dried blood on R nare - Neck Neck exam general surgery: Present: supple, trachea midline. Absent: lymphadenopathy - Respiratory Respiratory exam: Present: CTAB. Absent: accessory muscle use, rales, rhonchi, wheezes - Cardiovascular Cardiovascular exam: Present: irregular rhythm, +S1, +S2. Absent: diastolic murmur, gallop, rubs, systolic murmur - GI/Abdominal GI/Abdominal exam: Present: normal bowel sounds, soft, no peritoneal signs. Absent: distended, tenderness - Extremities Exam Extremities exam: Present: pedal edema (1+ pitting edema bilaterally), warm, radial pulses palpable and symetrical. Absent: calf tenderness, cyanotic - Neurological Exam Neurological exam: Present: alert, CN II-XII intact, oriented X3, no focal deficits. Absent: pronater drift, facial droop, speech deficit - Skin Skin exam: Present: dry, intact Internal Medicine: Result - Labs CBC & Chem 7: 02/26/17 01:37 02/26/17 10:31 Labs: Short CBC 02/26/17 Range/Units 01:37 WBC 18.4 H (4.3-11.1) K/mcL Hgb 10.0 L (12.9-16.9) g/dL Hct 29.6 L (37.5-50.1) % Plt Count 162 (140-400) K/mcL Neutrophils # 15.2 H (1.6-8.9) K/mcL BMP 02/25/17 02/26/17 02/26/17 14:22 01:37 10:31 Sodium 140 141 Potassium 3.0 L 2.8 L 3.5 Chloride 97 L 98 Carbon Dioxide 33 H 33 H BUN 38 H 42 H Creatinine 1.37 H 1.35 H Glucose 166 H 143 H Calcium 7.7 L 7.7 L Cardiac Enzymes 02/26/17 Range/Units 10:31 Troponin I 2.32 H* (0-0.03) ng/mL Urine 02/25/17 Range/Units 13:55 Urine Color Yellow (Yellow) Urine Clarity Cloudy A (Clear) Urine pH 6.5 (5.0-8.0) pH Units Ur Specific [place] 1.012 (1.010-1.025) Urine Protein 100 H (Neg-Trace) mg/dL Urine Glucose (UA) Normal (Normal) mg/dL - ABG Interpretation ABG results: PT/INR, D-dimer PT 11.4 Seconds (9.4-12.1) 02/24/17 23:11 Consult Discharge Plan - Plan Referrals: Arie Willis DO [Primary Care Provider] - (web request sent ok 02/25/17)
[2017-02-26] MEDS ORDERED: *HR* Midazolam HCl 2 MG/2 ML VIAL ONE (14:34)
[2017-02-26] MEDS ORDERED: *HR* FentaNYL (PF) 100 MCG/2 ML VIAL ONE (14:34)
[2017-02-26] MEDS ORDERED: Heparin 1,000 UNITS/500 mL NS 500 ML ONE (14:35)
[2017-02-26] MEDS ORDERED: Verapamil 5 MG/2 ML VIAL ONE (14:35)
[2017-02-26] MEDS ORDERED: 0.9 % Sodium Chloride 1,000 ML ONE (14:35)
[2017-02-26] MEDS ORDERED: *HR* Heparin 10,000 UNIT/10 ML VIAL ONE (14:36)
[2017-02-26] MEDS ORDERED: Nitroglycerin 1,000 MCG/10 ML VIAL IV ONE (14:36)
--- NOTE | 2017-02-26 14:48 | Pre-Sedation Evaluation ---
Pre-sedation evaluation - Pre-sedation checklist Date of procedure: 02/26/17 Procedure: [facility] Recent Vitals: Last Vital Signs Temp 98.2 F 02/26/17 12:06 Pulse 62 02/26/17 12:06 Resp 15 02/26/17 12:06 BP 135/69 02/26/17 12:06 Pulse Ox 95 02/26/17 12:06 H&P (including ROS) documented in medical record: Yes Previous reaction to sedatives/anesthetics: No Dietary Status: NPO after Midnight Airway Assessment: Patient can open mouth completely, TMJ function normal ASA Classification *see protocol: CLASS II-Mild systemic disease Plan of Care: Pt appropriate candidate for procedure/moderate/conscious sedation , Risks/benefits of procedure/sedation discussed w/ patient/family
--- NOTE | 2017-02-26 16:38 | Invasive Diagnostic Lab Proc ---
Name: Aydin Sterling Date of Study: 02/26/2017 Date: 1935 Ht: 65.0in Medical Record#: [id number] Age: 81 Wt: 160.94lb Gender: Male BSA: 1.8 Order #: [id number] BMI: 26.81 Physicians Procedure Physician: Vinh Malone MD, [facility] Referring MD: Referring MD: Staff Name Position Time In Rk Darden RN Property Investor 02:46 PM Xena Sadler RT (R) Scrub 02:47 PM Kiarra Benjamin RN Monitor 02:47 PM Gaviota Chau RN Monitor 02:47 PM Indications Indication Non-Stemi Procedures Performed Procedure L HRT ARTERY/VENTRICLE ANGIO PRQ CARD JANICE STENT W/ANGIO 1 VSL Pre-Procedure Checklist Informed consent is complete signed and on chart. H\\T\\P is on chart. ID band is on and ID verified with patient. Patient NPO for procedure The procedure was described for the patient and questions were answered. Blood Pressure: 186/71 ECG is on chart. Rhythm: Sinus Bradycardia Plan of Care Patient will tolerate the procedure without complications. Adequate level of comfort will be maintained. Hemodynamics will remain stable Patient will recover from procedure without complications. Respiratory function will be maintained. Cardiac rhythm will remain stable. Patient temperature will be maintained. Patient and/or family have verbalized understanding of the procedure. Patient Education Chief Complaint/Reason for Test: Cardiac Cath Developmental Category: Geriatric (65+ years) Developmentally Appropriate for Age: Yes Learning Barriers: None Education Needs: Procedure Education Method: Verbal Information Taught: Cardiac Cath Educational Evaluation: Able to repeat information Intravenous Access Time IV Size Location DC'd Fluid/Drip Rate Units RN 02:43 PM 20g 1 1/4" Peripheral-Lock On Arrival Lt Hand 0.9NaCl 25 ml/hr Rk Darden RN Allergies metoprolol Vital Signs Time BP (mmHg) HR (bpm) O2 Sat. RR (bpm) LOC 02:56 PM / % 4 = Oriented but drowsy 02:56 PM / % 3 = Answers simple questions/follows commands 03:11 PM / % 3 = Answers simple questions/follows commands 03:26 PM / % 4 = Oriented but drowsy 02:53 PM 146 / 76 59 100 % 16 02:58 PM 128 / 66 56 100 % 13 03:03 PM 121 / 63 56 99 % 25 03:08 PM 105 / 55 55 97 % 14 03:13 PM 105 / 54 52 98 % 12 03:18 PM 119 / 63 61 95 % 21 03:23 PM 120 / 55 48 100 % 19 03:28 PM 112 / 59 47 99 % 37 03:33 PM 114 / 52 45 100 % 14 03:38 PM 113 / 60 48 100 % 19 03:43 PM 119 / 58 50 99 % 13 03:48 PM 129 / 60 48 100 % 13 03:53 PM 125 / 61 50 100 % 20 03:58 PM 134 / 64 51 97 % 13 Procedural Medications Time Medication Dose Units Method Given By 02:55 PM Oxygen 2 L/min nasal cannula Rk Darden RN 02:55 PM Versed 1 mg Intravenous LuisthornRk samayoa RN 02:55 PM Fentanyl 25 mcg Intravenous Rk Darden RN 03:03 PM Versed 1 mg Intravenous LuisthorneRk RN 03:03 PM Fentanyl 25 mcg Intravenous Rk Darden RN 03:04 PM Lidocaine 2% 0.[address] Malone 03:07 PM Heparin 4000 units Nitroglycerin 200 mcg Verapamil 2.5 mg Intraarterial Vinh Malone MD, FAC 03:40 PM Heparin 2000 units Intravenous Rk Darden RN 03:46 PM Nitroglycerin 200 mcg Intracoronary Vinh Malone MD 04:06 PM Plavix 300 mg Orally Rk Darden RN ASA Classification: CLASS II- Mild systemic disease (i.e. well-controlled diabetes, hypertension, asthma, cigarette smoking) Elizabeth Score Preprocedure Postprocedure Activity 2- Moves 4 extremities sustained head lift Activity 2- Moves 4 extremities sustained head lift Circulation 2- SBP +/= 20 points of pre-anesthetic level Circulation 2- SBP +/= 20 points of pre-anesthetic level Consciousness 2- Awake and alert oriented x 3 Consciousness 2- Awake and alert oriented x 3 O2 Saturation 2- Able to maintain O2 satruation of 92% on room air O2 Saturation 2- Able to maintain O2 satruation of 92% on room air Respiratory 2- Able to deep breathe and cough well Respiratory 2- Able to deep breathe and cough well Total Score 10 Total Score 10 Contrast Agent: Isovue Diagnostic Contrast: 105 ml Total Contrast: 105 ml Fluoro Dose: 1016 mGy Activated Clotting Time Time Seconds to Clot 03:34 PM 400 03:40 PM 222 04:10 PM 208 Procedure Log Time Note Enter By 02:40 PM CathStat 02:46 PM Pt arrived to quality assurance qa lab technician 2 [facility] 14[facility] 02:47 PM Rk Darden RN Position: Property Investor Time in: 14:46 lparsley 02:47 PM Viktoriya, Xena RT (R) Position: Scrub Time in: 14:47 lparsley 02:47 PM Kiarra Benjamin RN Position: Monitor Time in: 14:47 lparsley 02:47 PM Gaviota Chau RN Position: Monitor Time in: 14:47 lparsley 02:48 PM Patient charges- Angio tray pack, Navilyst 3mm J, Pulse Oximetry and ACIST tubing and transducer lparsley 02:48 PM Case Delayed No lparsley 02:49 PM Physician arrived 14:49 lparsley 02:49 PM ASA Class CLASS II- Mild systemic disease (i.e. well-controlled diabetes, hypertension, asthma, cigarette smoking) [facility] 02:49 PM Meet and greet completed [facility] 02:49 PM Sign in performed according to hospital policy. lparsley 02:49 PM Procedure start 14:49 lparsley 02:50 PM 3+ Pitting edema bilateral lower extermities. lparsley 02:51 PM Hair removed from procedure site in procedure lab using clippers. Right wrist and right groin prepped with Chloraprep by Viktoriya, Xena RT (R), safety strap applied then patient was draped. Skin intact. [facility] 02:52 PM Vitals capture started with the following parameters, Patient=Adult, Interval=5 min, Initial Lgckuoil=985 mmHg, Deflation Rate=5 mmHg, Cuff placed on Left Arm 02:53 PM HR=59 bpm, IMYO=544/76 mmhg, DkI9=823.0 %, Resp=16 B/min, Comment=Sinus Braden w/ BBB 02:55 PM Time: 14:55 Oxygen on at 2 L/min per nasal cannula by Rk Darden RN 02:55 PM Time: 14:55 Versed 1 mg Intravenous Given by Rk Darden RN 02:55 PM Time: 14:55 Fentanyl 25 mcg Intravenous Given by Rk Darden RN 02:55 PM Time: 14:55 Patient comfortable and pain free: Yes [facility] 02:56 PM Time: 14:56LOC: 4 = Oriented but drowsy [facility] PM Clinical Presentation: Non-STEMI [facility] 02:58 PM HR=56 bpm, BJVA=396/66 mmhg, SaQ5=577.0 %, Resp=13 B/min, Comment=Sinus Braden w/ BBB 02:58 PM Recorded ECG: HR=55 Condition=Condition 1 03:03 PM HR=56 bpm, RTPY=294/63 mmhg, SpO2=99.0 %, Resp=25 B/min, 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 6Fr 11cm Terumo Glidesheath sheath placed in right Radial artery. 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 03:09 PM 5Fr FR 4 catheter [facility] over the [facility] PM [facility] 03:11 PM Time: 14:55 Patient comfortable and pain free: Yes [facility] 03[facility]11 PM Time: 14:56LOC: 3 = Answers simple questions/follows commands [facility] 03:11 PM 5Fr FL3.5 catheter inserted over the wire [id number] [facility] 03:12 PM Recorded Pressure: Ao, HR=56, Condition=Condition 1 (Aorta) Ao 110/64/85 03:13 PM HR=52 bpm, PVTV=977/54 mmhg, SpO2=98.0 %, Resp=12 B/min, Comment=Sinus Braden w/ BBB 03:13 PM LCA angiography performed in multiple views. lparsley 03:14 PM Catheter removed lparsley 03:14 PM 5Fr 3DRC catheter inserted over the wire [id number] lparsley 03:16 PM Recorded Pressure: Ao, HR=58, Condition=Condition 1 (Aorta) Ao 113/63/86 03:17 PM RCA angiography performed in multiple views. lparsley 03:17 PM Recorded Pressure: Ao, HR=54, Condition=Condition 1 (Aorta) Ao 120/71/92 03:17 PM Catheter removed lparsley 03:18 PM 5Fr Pigtail catheter inserted over the wire DN lparsley 03:18 PM HR=61 bpm, ERSO=806/63 mmhg, SpO2=95.0 %, Resp=21 B/min, Comment=Sinus Braden w/ BBB 03:19 PM Catheter selectively placed in left ventricle pressures obtained. lparsley 03:19 PM Pressure channel 1 zeroed. 03:19 PM Recorded Pressure: LV, HR=54, Condition=Condition 1 (Left Ventricle) LV 109/6/9 03:20 PM Recorded Pressure: LV, Ao, HR=63, Condition=Condition 1 (Left Ventricle) LV 138/11/18, (Aorta) Ao 126/49/81 03:21 PM Catheter removed lparsley 03:21 PM PCI Status Urgent lparsley 03:21 PM PCI Indication: PCI for high risk Non-STEMI or unstable angina lparsley 03:22 PM Inflation device was opened. lparsley 03:23 PM 5Fr RBR 3.5 Convey guide catheter was used to cannulate the PCI vessel successfully. reused? 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 reused? 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 Pre Stenosis: 60 Pre lparsley 03:29 PM Lesion found in Mid RCA. Pre Stenosis: 99 Pre ELOISA Flow: 2: Partial Flow/Perfusion (> 1 but < 3) lparsley 03:29 PM Lesion found in Mid LAD. Pre Stenosis: 50 lparsley 03:29 PM Lesion found in Mid Circumflex. Pre Stenosis: 30 lparsley 03:30 PM Guide catheter removed intact. lparsley 03:31 PM Mid/Distal Left Anterior Descending Coronary Artery and diagonal branches with 50% stenosis.s lparsley 03:31 PM Circumflex, Obtuse Marginal, Left Posterior Descending, and Left Posterolateral Coronary Arteries with 30 % stenosis. lparsley 03:31 PM Right Coronary, Right Posterior Descending Arteries with Right Posterolateral and Acute Marginal branches with 99 % stenosis. lparsley 03:32 PM 6Fr XBRCA Cordis guide catheter was used to cannulate the PCI vessel successfully. reused? No lparsley 03:33 PM .014 PT Graphix 182cm guide wire across target lesion- successful. reused? No lparsley 03:33 PM HR=45 bpm, CMAE=111/52 mmhg, KqZ6=273.0 %, Resp=14 B/min, Comment=Sinus Braden w/ BBB 03:34 PM At 15:34 the ACT was >400 seconds. lparsley 03:35 PM 2.0 mm x 15 mm Emerge Monorail balloon across target lesion- successful. reused? No lparsley 03:35 PM Recorded Pressure: Ao, HR=45, Condition=Condition 1 (Aorta) Ao 118/43/72 03:38 PM Balloon catheter removed intact. lparsley 03:38 PM HR=48 bpm, ZKIA=218/60 mmhg, FsW2=836.0 %, Resp=19 B/min, Comment=Sinus Braden w/ BBB 03:39 PM .014 Fielder 180cm guide wire across target lesion- successful. reused? No lparsley 03:40 PM At 15:40 the ACT was 222 seconds. lparsley 03:40 PM Time: 15:40 Heparin 2000 units Intravenous Given by Rk Darden RN lparsley 03:40 PM Guide wire, PT Graphix, removed intact. lparsley 03:41 PM Time: 15:26 Patient comfortable and pain free: Yes lparsley 03:41 PM Time: 15:26LOC: 4 = Oriented but drowsy lparsley 03:41 PM 2.0 mm x 15 mm Emerge Monorail balloon across target lesion- successful. reused? 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 lparsley 03:46 PM Recorded Pressure: Ao, HR=49, Condition=Condition 1 (Aorta) Ao 119/50/75 03:47 PM Time: 15:46 Nitroglycerin 200 mcg Intracoronary Given by Vinh Malone MD lparsley 03:47 PM 2.25mm x 38mm Synergy drug-eluting stent across target lesion- successful Lot #[id number] lparsley 03:48 PM HR=48 bpm, JVBU=894/60 mmhg, AkR0=778.0 %, Resp=13 B/min, Comment=Sinus Braden w/ BBB 03:48 PM Stent deployed @ 18 karel for 13 seconds lparsley 03:49 PM Stent delivery system removed intact. lparsley 03:50 PM 2.25 mm x 20mm NC Trek Rx balloon across target lesion- successful. reused? No lparsley 03:51 PM Balloon inflated @ 16 karel for 14 seconds lparsley 03:51 PM Balloon inflated @ 18 karel for 12 seconds lparsley 03:53 PM 2.5 mm x 8mm NC Emerge balloon across target lesion- successful. reused? No pvannoy 03:53 PM HR=50 bpm, OAUL=395/61 mmhg, LvW1=464.0 %, Resp=20 B/min, Comment=Sinus Braden w/ BBB 03:54 PM Balloon inflated @ 20 karel for 9 seconds lparsley 03:54 PM Recorded Pressure: Ao, HR=49, Condition=Condition 1 (Aorta) Ao 128/57/83 03:54 PM Balloon inflated @ 14 karel for 20 seconds lparsley 03:55 PM Balloon catheter removed intact. lparsley 03:55 PM Guide wire removed intact. lparsley 03:56 PM Guide catheter removed intact. lparsley 03:58 PM Arterial sheath pulled, Vasc Band closure device used and was Successful S/N. lparsley 03:58 PM HR=51 bpm, VRLV=337/64 mmhg, SpO2=97.0 %, Resp=13 B/min, Comment=Sinus Braden w/ BBB 03:58 PM Procedure completed at 15:58 lparsley 03:59 PM Sign out completed: Radiation Dose 1016.1 mGy Fluoro Time: 14.9 Isovue 370 - 200ml contrast 105.6 ml given by Vinh Malone MD, [facility]. Complications: NoneCardiac Rehab Consult needed: YesConfirmed administered medications: Yes [facility] 03:59 PM 13 ml air in Vasc Band. lparsley 03:59 PM Post ECG Sinus Bradycardia lparsley 04:00 PM Post Blood Pressure 134/64 lparsley 04:00 PM 16:00 Post Pulses Rt Radial 1+ lparsley 04:00 PM Information taught PCI, Cardiac Cath, and Vasc Band lparsley 04:01 PM Education needs Procedure, Discharge Instructions, Rehab (OT,PT, Speech, Cardiac, TR, Pulmonary) Specify, and Responsibilities of Patient in Care lparsley 04:01 PM Learning barriers :None lparsley 04:01 PM Education Methods Verbal lparsley 04:01 PM Education evaluation Able to repeat information lparsley 04:01 PM Site status No bleeding/hematoma - Rt Wrist as reported by Sites, Xena RT (R) at 16:01 lparsley 04:07 PM Time: 16:06 Plavix 300 mg Orally Given by Rk Darden RN lparsley 04:10 PM Patient out of room: 16:10 lparsley 04:10 PM Complications: None lparsley 04:10 PM At 16:10 the ACT was 208 seconds. lparsley 04:12 PM Report given to Angelina ONEILL Pt taken to Room #62. 16:20 lparsley 04:26 PM Isovue 370 - 200ml,1 Bottle(s) used. lparsley 04:28 PM Plavix, Effient or Brilinta given Yes lparsley 04:28 PM Delay to floor No lparsley 04:28 PM Family not available lparsley 04:28 PM Complications: None [facility] PM Fluoro Time: 14.9 [facility] PM Isovue 370 - 200ml contrast 105 ml given by Vinh Malone MD, [facility]. [facility] 04:29 PM Radiation Dose 1016.01 mGy kelsey Complications Complication None Hemodynamics Pressures Site Systolic/A Wave Diastolic/V Wave Mean AO 110 64 85 AO 113 63 86 AO 120 71 92 LV 109 6 9 LV 138 11 18 AO 126 49 81 AO 118 43 72 AO 119 50 75 AO 128 57 83 Post Procedure Information Blood Pressure: 134/64 mmHg Rhythm: Sinus Bradycardia Post procedural instructions were given Closure Device Time Device Success/Fail 02/26/2017 3:59:00 PM Mechanical Compression Successful Site Checks Time Location Status Staff Sheath In? Note 04:01 PM Rt Wrist No bleeding/hematoma Sites, Xena RT (R) Pulses Time Site Pre-Procedure Post-Procedure Note 02/26/2017 2:44:00 PM Bilateral DP \\T\\ PT 2+ 02/26/2017 2:44:00 PM Rt Radial 2+ 4:00:00 PM Rt Radial 1+ Updated by Kiarra Benjamin RN on 02/26/2017 4:34:44 PM electronically signed on 02/26/2017 4:35:36 PM with status of Final
--- NOTE | 2017-02-26 17:41 | ENT - Consult Note ---
Date of Encounter: 02/26/17 Time of Encounter: 17:39 Assessment and Plan (1) Anterior epistaxis Current Visit: Yes Status: Acute Anterior nasal packing was placed at the bedside. Hemostasis was achieved. Post procedure activities were discussed with the patient is family at the bedside. Patient to continue nasal saline spray to help dissolve this packing over time. Discussed no heavy lifting or any vigorous activity to decrease chance of rebleed. Patient to keep head above the waist. This dissolvable packing will follow out over time. Patient to follow up with ENT as needed. History of Present Illness Consult date: 02/26/17 Reason for ENT Consult: epistaxis History of present illness: Patient with epistaxis that began earlier today. Patient with significant bleeding from the right nostril. This continued for multiple hours despite pressure to the nostril. Patient with a history of nosebleeds occasionally that are usually resolved by pressure. Patient recently admitted for AL in undergoing cath in the near future. Patient recently placed on aspirin and Plavix. Past Med Surg Social Fam HX - Past Medical History Medical history: arthritis, coronary artery disease, hyperlipidemia, hypertension, migraine, myocardial infarction Psychiatric history: no psych history, other - Past Surgical History Surgical History: angioplasty/stent, other - Social History Smoking Status: Former smoker Smokeless Tobacco Status: Yes Alcohol use: occasionally Drug use: none - Family History Father Adopted: No Race: Living Status: Hx Family Cardiac Disorders: No Hx Family Respiratory Disorders: No Hx Family Cancer: No Hx Family GI Disorders: No Hx Family Genitourinary Disorders: No Hx Family Endocrine Disorder: No Hx Family Musculoskeletal Disorders: No Hx Family Neuromuscular Disorders: No Hx Family Neurologic Disorders: No Hx Family HEENT Disorders: No Hx Family Autoimmune Disorders: No Hx Family Reproductive Disorders: No Hx Family Psychosocial Disorders: No Hx Family Medical Disorders: No Medications and Allergies Aspirin 81 mg PO DAILY 02/25/17 [History] Lisinopril/Hydrochlorothiazide [Zestoretic 10-12.5 mg Tablet] 1 tab PO DAILY [History] Vitamin B Complex [B Complex] 1 tab PO DAILY 02/25/17 [History] Allergies metoprolol [From Toprol XL] Adverse Reaction (Verified 02/25/17 08:46) See Comments PULSE DROPPED ENT - ROS - Constitutional Constitutional ROS: as per HPI - EENT Nose, mouth and throat: epistaxis ENT Exam Initial Vital Signs Temp Pulse Resp BP Pulse Ox 98.2 F 69 20 191/80 95 02/24/17 21:23 02/24/17 21:23 02/24/17 21:23 02/24/17 21:23 02/24/17 21:23 - General physical appearance moderate distress, chronically ill - Eyes PERRL, normal ocular movement - ENT normal pinna, normal nares, deviated nasal septum, Other (Tonsils are absent, tongue mobile midline no oral lesions no blood in posterior oropharynx. Nose: Packing within the right nostril upon arrival. This was removed and clot was visualized along the right anterior septum. There was some active bleeding around this clot. Right naris was packed. Anterior nasal packing was placed. Hemostasis was achieved.) - Neck no masses, trachea midline - Respiratory normal expansion, normal respiratory effort - Psychiatric speech is normal Exam Initial Vital Signs Temp Pulse Resp BP Pulse Ox 98.2 F 69 20 191/80 95 02/24/17 21:23 02/24/17 21:23 02/24/17 21:23 02/24/17 21:23 02/24/17 21:23 Results - Labs 02/26/17 01:37 02/26/17 16:43 Abnormal lab results WBC 18.4 K/mcL (4.3-11.1) H 02/26/17 01:37 RBC 2.85 M/mcL (4.19-5.50) L 02/26/17 01:37 Hgb 10.0 g/dL (12.9-16.9) L 02/26/17 01:37 Hct 29.6 % (37.5-50.1) L 02/26/17 01:37 MCV 103.9 fL (83.0-100.0) H 02/26/17 01:37 MCH 35.1 pg (28.0-33.3) H 02/26/17 01:37 RDW 21.2 % (11.5-14.5) H 02/26/17 01:37 MPV 12.5 fL (9.4-12.4) H 02/26/17 01:37 Immature Gran % 4.9 % (0-4) H 02/26/17 01:37 Metamyelocytes % 4.0 % (0) H 02/24/17 22:46 Neutrophils # 15.2 K/mcL (1.6-8.9) H 02/26/17 01:37 Nucleated RBCs/100 WBC 0.5 /100 WBC (0) H 02/26/17 01:37 Smudge Cells Present (Not Present) A 02/25/17 09:35 Immature Plt Fraction 8.3 % (1.1-6.1) H 02/24/17 22:46 Polychromasia 1+ (Not Present) A 02/25/17 12:18 Poikilocytosis 1+ (Not Present) A 02/25/17 12:18 APTT 88.6 Seconds (26.0-36.0) H 02/26/17 01:37 Potassium 3.0 mEq/L (3.5-4.5) L 02/26/17 16:43 Carbon Dioxide 33 mEq/L (19-29) H 02/26/17 10:31 BUN 42 mg/dL (8-26) H 02/26/17 10:31 Creatinine 1.35 mg/dL (0.72-1.25) H 02/26/17 10:31 Est GFR (Non-Af Amer) 51 (> 60) L 02/26/17 10:31 BUN/Creatinine Ratio 31 (6-26) H 02/26/17 10:31 Glucose 143 mg/dL (70-99) H 02/26/17 10:31 Hemoglobin A1c 5.7 % (-5.6) H 02/25/17 06:24 Calculated Osmolality 305 (280-300) H 02/26/17 10:31 Lactic Acid 2.5 mmol/L (0.5-2.2) H 02/25/17 06:24 Calcium 7.7 mg/dL (8.6-10.8) L 02/26/17 10:31 Phosphorus 1.9 mg/dL (2.3-4.7) L 02/25/17 05:38 Troponin I 2.32 ng/mL (0-0.03) H* 02/26/17 10:31 B-Natriuretic Peptide 298 pg/mL (0-100) H 02/26/17 01:37 Serum Total Protein 5.4 g/dL (6.0-8.3) L 02/25/17 06:24 Albumin 2.8 g/dL (3.5-5.0) L 02/25/17 06:24 Urine Clarity Cloudy (Clear) A 02/25/17 13:55 Urine Protein 100 mg/dL (Neg-Trace) H 02/25/17 13:55 Urine Blood Large (Negative) H 02/25/17 13:55 Ur Leukocyte Esterase Trace (Negative) H 02/25/17 13:55 Urine Microscopic RBC TNTC per hpf (0-3) H 02/25/17 13:55 Urine Microscopic WBC 3-5 per hpf (0-3) H 02/25/17 13:55 Ur Squamous Epith Cells Moderate per lpf (None-Few) H 02/25/17 13:55 Diabetes panel 02/26/17 02/26/17 02/26/17 Range/Units 01:37 10:31 16:43 Sodium 140 141 (136-145) mEq/L Potassium 2.8 L 3.5 3.0 L (3.5-4.5) mEq/L Chloride 97 L 98 (98-109) mEq/L Carbon Dioxide 33 H 33 H (19-29) mEq/L BUN 38 H 42 H (8-26) mg/dL Creatinine 1.37 H 1.35 H (0.72-1.25) mg/dL Glucose 166 H 143 H (70-99) mg/dL Calcium 7.7 L 7.7 L (8.6-10.8) mg/dL Calcium panel 02/26/17 02/26/17 Range/Units 01:37 10:31 Calcium 7.7 L 7.7 L (8.6-10.8) mg/dL Pituitary panel 02/26/17 02/26/17 02/26/17 Range/Units 01:37 10:31 16:43 Sodium 140 141 (136-145) mEq/L Potassium 2.8 L 3.5 3.0 L (3.5-4.5) mEq/L Chloride 97 L 98 (98-109) mEq/L Carbon Dioxide 33 H 33 H (19-29) mEq/L BUN 38 H 42 H (8-26) mg/dL Creatinine 1.37 H 1.35 H (0.72-1.25) mg/dL Glucose 166 H 143 H (70-99) mg/dL Calcium 7.7 L 7.7 L (8.6-10.8) mg/dL Adrenal panel 02/26/17 02/26/17 02/26/17 Range/Units 01:37 10:31 16:43 Sodium 140 141 (136-145) mEq/L Potassium 2.8 L 3.5 3.0 L (3.5-4.5) mEq/L Chloride 97 L 98 (98-109) mEq/L Carbon Dioxide 33 H 33 H (19-29) mEq/L BUN 38 H 42 H (8-26) mg/dL Creatinine 1.37 H 1.35 H (0.72-1.25) mg/dL Glucose 166 H 143 H (70-99) mg/dL Calcium 7.7 L 7.7 L (8.6-10.8) mg/dL All other labs normal. Consult Discharge Plan - Plan Referrals: Arie Willis DO [Primary Care Provider] - (web request sent ok 02/25/17)
--- NOTE | 2017-02-26 17:48 | ENT - Procedure Note ---
Date of procedure: 02/26/17 Pre-op diagnosis: Anterior epistaxis, coagulopathy Post-op diagnosis: same Procedure: Procedure: Anterior nasal packing CPT 30910 Verbal consent was obtained. Timeout was performed. Previous nasal packing was removed as napkin was in the nose that was placed by the patient. Nasal speculum was then used to visualize the right nasal cavity. Right nasal cavity was suctioned with a Schaeffer suction. 50-50 mixture of oxymetazoline and lidocaine spray was then sprayed in the right naris. Strips of dissolvable fibrillar were then placed within the right nasal cavity in the area that had been bleeding where bloody ooze was emanating from at the right anterior nasal septum. Fibrillar was placed with the use of bayonet. Hemostasis was achieved. Patient tolerated this procedure well. Anesthesia: topical Surgeon: Nicol Rizvi Estimated blood loss (cc): 3 Condition: stable
--- NOTE | 2017-02-26 19:34 | Electrocardiograph Report ---
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
--- NOTE | 2017-02-26 19:42 | Electrocardiograph Report ---
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
--- NOTE | 2017-02-26 19:44 | Electrocardiograph Report ---
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 : 1935 Requested By: Lloyd Dutta Order Number: [id number] Reading MD: Vinh Malone MD Measurements Intervals [place] Rate: 50 P: 62 AL: 164 QRS: -62 QRSD: 156 T: -87 QT: 519 QTc: 494 Interpretive Statements BASELINE ARTIFACT COMPLICATES ACCURATE INTERPRETATION LIKELY SINUS RHYTHM WITH PACS MARKED LEFT AXIS DEVIATION LEFT BUNDLE BRANCH BLOCK Electronically Signed On 02-26-2017 19:42:13 EDT by Vinh Malone MD
[2017-02-27] MEDS: Potassium Chloride Elixir 20 MEQ/15 ML UDC PO SCH ×3 (01:18→20:37)
[2017-02-27] MEDS: Saline Nasal Spray 44 ML BOTTLE NS SCH ×4 (01:18→20:57)
[2017-02-27 01:22] LABS: Hematocrit 28.2 % (37.5-50.1); Hemoglobin 9.3 g/dL (12.9-16.9); Mean Corpuscular Hemoglobin 34.7 pg (28.0-33.3); Mean Corpuscular Volume 105.2 fL (83.0-100.0); Mean Platelet Volume 11.4 fL (9.4-12.4); Nucleated Red Blood Cells 0.3 /100 WBC (0); Platelet Count 131 K/mcL (140-400); Red Blood Count 2.68 M/mcL (4.19-5.50); Red Cell Distribution Width 21.6 % (11.5-14.5)
[2017-02-27 01:39] LABS: BUN/Creatinine Ratio 35 (6-26); Blood Urea Nitrogen 43 mg/dL (8-26); Calcium 7.9 mg/dL (8.6-10.8); Carbon Dioxide 33 mEq/L (19-29); Chloride 99 mEq/L (98-109); Glucose 137 mg/dL (70-99); Osmolality,Calculated 307 (280-300); Potassium 3.2 mEq/L (3.5-4.5); Sodium 142 mEq/L (136-145); eGFR For African Americans > 60 (> 60); eGFR For Non-African Americans 57 (> 60)
[2017-02-27 02:26] LABS: Lymphocytes # 1.7 K/mcL (0.6-4.6); Monocytes # 0.5 K/mcL (0.0-1.3); Neutrophils # 9.8 K/mcL (1.6-8.9)
[2017-02-27 02:27] LABS: Platelet Estimate Normal (Normal); Reactive Lymphocytes Present (Not Present)
[2017-02-27] MEDS: 0.9 % Sodium Chloride 500 ML IVC SCH (07:43)
[2017-02-27] MEDS: Metoprolol XL (24 HR) Succ 25 MG TAB.ER.24H PO SCH (08:43)
[2017-02-27] MEDS: Aspirin 81 MG TAB.CHEW PO SCH (08:43)
[2017-02-27] MEDS ORDERED: Furosemide 40 MG/4 ML VIAL IVP SCH (09:00)
--- NOTE | 2017-02-27 10:29 | Cardiology Progress Note ---
Date of Encounter: 02/27/17 Time of Encounter: 10:27 Assessment and Plan (1) NSTEMI (non-ST elevated myocardial infarction) Current Visit: Yes Status: Acute Troponin 0.97, 1.28, 2.32. [facility] yesterday revealed moderate 3 vessel disease. Final cath report pending. Pt received PCI/JANICE to mid RCA. Recomment DAPT (ASA and Plavix) uninterrupted x 1 year. Pt and daughter verbalize understanding. Continue Statin, BB. Echo showed EF preserved 60-65%. Right radial access site healing well. No bleeding, hematoma or ecchymosis noted. Renal function improved today, creatinine 1.22. Cardiology is signing off. Reconsult PRN. Will coordinate office follow-up in 5- 7 days. (2) Acute CHF (congestive heart failure) Current Visit: Yes Status: Acute BNP 501, CXR with pleural effusions. Worsening dyspnea and lower extremity edema. K improving but still low, 3.3. Will replace. Recommend IV Lasix 40mg daily while inpt. Decreased from BID due to worsening renal function, now improved. Recommend transitioning to PO Lasix maintenance dosing at discharge. Recommend strict I/Os, daily weights, NA and fluid restriction. Echo EF preserved 60-65%. Continue BB and KYLAH-I. Qualifiers: Congestive heart failure type: diastolic Qualified Code(s): I50.31 - Acute diastolic (congestive) heart failure (3) Essential hypertension Current Visit: Yes Status: Chronic Had been controlled, but held KYLAH-I due to worsening renal function. Will resume now that renal function is improving. (4) CAD (coronary artery disease) Current Visit: Yes Status: Chronic ASA, Plavix, Statin, BB. Qualifiers: Coronary Disease-Associated Artery/Lesion type: [place] artery [place] vs. transplanted heart: [place] heart Associated angina: angina presence unspecified Qualified Code(s): I25.10 - Atherosclerotic heart disease of [place] coronary artery without angina pectoris (5) PAF (paroxysmal atrial fibrillation) Current Visit: Yes Status: Acute Episode of PAF 2 nights ago lasted <24 hours without recurrence. Pt converted to SR on Cardizem gtt, since stopped. Low dose BB started. 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 He also experienced nose bleed while on heparin gtt, ASA, and Plavix. Needs to be on ASA and Plavix uninterrupted x 1 year. Discussion w patient/family: The assessment and plan as outlined above was discussed with the patient and/or family members who expressed understanding and agreement. All questions were answered. Thank you for involving us in the care of your patient. Please call with any questions. I will discuss all the above with Dr. Sifuentes and make changes as necessary. Subjective Principal diagnosis: NSTEMI, CHF, PAF Interval history: Troponins 0.97, 1.28, 2.32. S/P [facility] yesterday.He had moderate 3 vessel disease. Pt received PCI/JANICE to mid RCA. ENT saw/evaluated pt yesterday for epistaxis, s/ p packing with no recurrence. Renal function improved today since decreasing Lasix. Cumulative I/O negative -3012mL. Pt reports feeling tired and dizzy at times, but denies any other complaints. No A-Fib recurrence noted on tele. Objective Vital Signs, Last 4 Hours Temp Pulse Resp BP Pulse Ox 02/27/17 07:41 97.3 F L 61 18 162/67 94 Vital Signs Temp Pulse Resp BP Pulse Ox 02/27/17 07:41 97.3 F L 61 18 162/67 94 02/27/17 04:28 97.6 F 51 15 138/71 95 02/26/17 23:05 97.6 F 61 16 152/50 96 02/26/17 20:20 98.6 F 54 14 134/39 96 02/26/17 17:55 97.6 F 58 16 149/73 96 02/26/17 17:23 97.6 F 54 16 167/72 93 02/26/17 17:07 97.8 F 54 15 152/63 91 02/26/17 16:55 97.6 F 54 16 154/69 91 02/26/17 16:40 97.6 F 60 16 166/70 91 02/26/17 16:35 97.5 F L 59 14 157/76 93 02/26/17 16:30 97.5 F L 67 14 157/68 92 02/26/17 12:06 98.2 F 62 15 135/69 95 Intake and Output 02/26/17 02/27/17 02/27/17 23:59 07:59 15:59 Intake Total 0 / 0 Output Total 275 / 275 Balance -275 / -275 Intake: Oral 0 / 0 Output: Catheter 275 / 275 Other: Meal NPO Percent of Meal Consumed 0% Weight 73.1 kg Patient Weight 02/27/17 23:59 Weight 73.1 kg General: Conversant, No Apparent Distress HEENT: Atraumatic, Normocephaly, Mucus Membranes Moist Neck: Normal carotid pulses Cardiac: Reg Rate and Rhythm, Normal S1 and S2, No Murmur Lungs: Other (diminished) Neuro: Alert and responsive, No focal deficits noted Abdomen: Soft, Non-Tender Skin: No rashes noted on visualized skin Musculoskeletal: No Chest Wall Tenderness Extremities: Other (+1 BLE edema) Results 02/27/17 01:10 02/27/17 01:10 Lab Results 02/26/17 02/26/17 02/26/17 10:31 10:31 16:43 WBC Hgb Hct Plt Count APTT Sodium 141 Potassium 3.5 3.0 L Chloride 98 Carbon Dioxide 33 H BUN 42 H Creatinine 1.35 H Glucose 143 H Calcium 7.7 L Magnesium Troponin I 2.32 H* 02/27/17 02/27/17 02/27/17 01:10 01:10 01:10 WBC 11.9 H Hgb 9.3 L Hct 28.2 L Plt Count 131 L APTT 27.2 D Sodium 142 Potassium 3.2 L Chloride 99 Carbon Dioxide 33 H BUN 43 H Creatinine 1.22 Glucose 137 H Calcium 7.9 L Magnesium Troponin I 02/27/17 01:10 WBC Hgb Hct Plt Count APTT Sodium Potassium Chloride Carbon Dioxide BUN Creatinine Glucose Calcium Magnesium 2.4 Troponin I - Imaging and Cardiology Echo: report reviewed Cardiac cath: report reviewed - EKG Interpretation EKG results cardiology: other (24 hour tele AVG HR 55, SR. No significant pauses or arrhythmias.) Consult Discharge Plan - Plan Referrals: Arie Willis DO [Primary Care Provider] - (web request sent ok 02/25/17)
[2017-02-27] MEDS ORDERED: Potassium Chloride 40 MEQ, Lidocaine 1% 2 ML in D5% in Water 500 ML IVPB ONE (10:43)
--- NOTE | 2017-02-27 16:54 | Internal Med Progress Note ---
Date of Encounter: 02/27/17 Time of Encounter: 14:30 - Assessment and plan (1) NSTEMI (non-ST elevated myocardial infarction) Current Visit: Yes Status: Acute Assessment and plan: Cardiology input appreciated s/p [facility] (02/26/17): Revealed moderate 3 vessel disease. Patient received PCI/ JANICE to mid RCA. Will continue dual antiplatelet therapy, statin, beta joelle Echo showed EF preserved at 60-65% Will obtain physical therapy evaluation and initiate discharge planning. (2) Leukocytosis Current Visit: Yes Status: Acute Assessment and plan: Possibly from ID Patient with no fever, tachycardia, no source of infection at this time Lactic acid is however elevated UA noted for hematuria, no nitrite, trace LE, moderate WBC Follow-up urine culture and continue ceftriaxone empirically May de-escalate if urine culture is negative We will follow up repeat lactate Qualifiers: Leukocytosis type: unspecified Qualified Code(s): D72.829 - Elevated white blood cell count, unspecified (3) Acute CHF (congestive heart failure) Current Visit: Yes Status: Acute Assessment and plan: Continue diuresis FLuid restriction diet Strict I/O Daily weights Monitor K and Chem As in NSTEMI Qualifiers: Congestive heart failure type: diastolic Qualified Code(s): I50.31 - Acute diastolic (congestive) heart failure (4) Essential hypertension Current Visit: Yes Status: Chronic Assessment and plan: BP within acceptable range continue home medications (5) CAD (coronary artery disease) Current Visit: Yes Status: Chronic Assessment and plan: Chronic, now with NSETMI Management as in NSTEMI Appreciate cardiology input Qualifiers: Coronary Disease-Associated Artery/Lesion type: [place] artery [place] vs. transplanted heart: [place] heart Associated angina: angina presence unspecified Qualified Code(s): I25.10 - Atherosclerotic heart disease of [place] coronary artery without angina pectoris (6) Anterior epistaxis Current Visit: Yes Status: Resolved Assessment and plan: ENT input appreciated (7) PAF (paroxysmal atrial fibrillation) Current Visit: Yes Status: Acute Assessment and plan: Rate controlled with beta joelle Anticoagulation with aspirin (8) DVT prophylaxis Current Visit: Yes Status: Acute Assessment and plan: Heparin SQ - Subjective Interval history: Patient seen and examined with family present at bedside. Reports of feeling better today and currently saturating well on room air. Patient appears to be frail and reports of living with his . As per family ( present at bedside) patient has been having difficulty ambulating. PT/OT eval requested. - Constitutional Vitals: Temp Pulse Resp BP Pulse Ox 98.2 F 63 18 147/64 97 02/27/17 15:28 02/27/17 15:28 02/27/17 15:28 02/27/17 15:28 02/27/17 15:28 General appearance: Present: A&O X 3 (frail ), pleasant, no acute distress, answers questions appropriately - Head Head exam: Present: atraumatic, normocephalic - Eye Eye exam: Present: normal appearance, conjuntiva pink, sclera anicteric - Respiratory Respiratory exam: Present: CTAB. Absent: respiratory distress, wheezes - Cardiovascular Cardiovascular exam: Present: RRR, +S1, +S2. Absent: diastolic murmur, gallop, rubs, systolic murmur - GI/Abdominal GI/Abdominal exam: Present: normal bowel sounds, soft, no peritoneal signs. Absent: distended, tenderness - Extremities Exam Extremities exam: Present: pedal edema, warm, radial pulses palpable and symetrical. Absent: calf tenderness - Neurological Exam Neurological exam: Present: alert, oriented X3 Internal Medicine: Result - Labs CBC & Chem 7: 02/27/17 01:10 02/27/17 01:10 Labs: Short CBC 02/27/17 Range/Units 01:10 WBC 11.9 H (4.3-11.1) K/mcL Hgb 9.3 L (12.9-16.9) g/dL Hct 28.2 L (37.5-50.1) % Plt Count 131 L (140-400) K/mcL Neutrophils # 9.8 H (1.6-8.9) K/mcL BMP 02/26/17 02/27/17 16:43 01:10 Sodium 142 Potassium 3.0 L 3.2 L Chloride 99 Carbon Dioxide 33 H BUN 43 H Creatinine 1.22 Glucose 137 H Calcium 7.9 L - ABG Interpretation ABG results: PT/INR, D-dimer PT 11.4 Seconds (9.4-12.1) 02/24/17 23:11 Consult Discharge Plan - Plan Referrals: Ravinder Sifuentes MD [Partnered Physician] - 03/04/17 8:35 am Arie Willis DO [Primary Care Provider] - (web request sent ok 02/25/17)
[2017-02-27] MEDS: *HR* Heparin 5,000 UNIT/ML VIAL SQ SCH (18:55)
[2017-02-28 04:51] LABS: Basophils % 0.1 %; Eosinophils % 0.1 %; Hematocrit 26.2 % (37.5-50.1); Hemoglobin 8.8 g/dL (12.9-16.9); Lymphocytes # 0.8 K/mcL (0.6-4.6); Lymphocytes % 6.1 %; Mean Corpuscular HGB Conc 33.6 g/dL (31.6-35.5); Mean Corpuscular Hemoglobin 35.1 pg (28.0-33.3); Mean Corpuscular Volume 104.4 fL (83.0-100.0); Mean Platelet Volume 12.5 fL (9.4-12.4); Monocytes # 0.9 K/mcL (0.0-1.3); Nucleated Red Blood Cells 0.4 /100 WBC (0); Platelet Count 139 K/mcL (140-400); Red Blood Count 2.51 M/mcL (4.19-5.50); Red Cell Distribution Width 21.2 % (11.5-14.5); Segmented Neutrophils % 81.7 %
[2017-02-28 05:04] LABS: Calcium 8.2 mg/dL (8.6-10.8); Magnesium 2.3 mg/dL (1.6-2.6); Phosphorous 2.6 mg/dL (2.3-4.7); Potassium 3.3 mEq/L (3.5-4.5)
[2017-02-28] MEDS: *HR* Heparin 5,000 UNIT/ML VIAL SQ SCH ×2 (06:32→18:23)
[2017-02-28] MEDS: Potassium Chloride Elixir 20 MEQ/15 ML UDC PO SCH ×2 (09:44→20:01)
[2017-02-28] MEDS: Lisinopril 20 MG TABLET PO SCH (09:44)
[2017-02-28] MEDS: Aspirin 81 MG TAB.CHEW PO SCH (09:44)
[2017-02-28] MEDS: Metoprolol XL (24 HR) Succ 25 MG TAB.ER.24H PO SCH (09:44)
[2017-02-28] MEDS: Saline Nasal Spray 44 ML BOTTLE NS SCH ×3 (09:45→20:02)
[2017-02-28] MEDS: Furosemide 20 MG/2 ML VIAL IVP SCH (09:45)
--- NOTE | 2017-02-28 12:24 | Internal Med Progress Note ---
Date of Encounter: 02/28/17 Time of Encounter: 11:25 - Assessment and plan (1) NSTEMI (non-ST elevated myocardial infarction) Current Visit: Yes Status: Acute Assessment and plan: Cardiology input appreciated s/p [facility] (02/26/17): Revealed moderate 3 vessel disease. Patient received PCI/ JANICE to mid RCA. Will continue dual antiplatelet therapy, statin, beta joelle Echo showed EF preserved at 60-65% Discharge planning initiated awaiting placement to an Inpatient swing bed facility for rehab case management social worker consulted (2) Leukocytosis Current Visit: Yes Status: Acute Assessment and plan: [facility] Patient with no fever, tachycardia, no source of infection at this time Lactic acid normalized Will repeat UA continue ceftriaxone empirically CXR negative for any acute infectious process Will treat with five days of abx and continue to monitor Qualifiers: Leukocytosis type: unspecified Qualified Code(s): D72.829 - Elevated white blood cell count, unspecified (3) Acute CHF (congestive heart failure) Current Visit: Yes Status: Acute Assessment and plan: Continue diuresis FLuid restriction diet Strict I/O Daily weights Monitor K and Chem As in NSTEMI Qualifiers: Congestive heart failure type: diastolic Qualified Code(s): I50.31 - Acute diastolic (congestive) heart failure (4) Essential hypertension Current Visit: Yes Status: Chronic Assessment and plan: BP within acceptable range continue home medications (5) CAD (coronary artery disease) Current Visit: Yes Status: Chronic Assessment and plan: Chronic, now with NSETMI Management as in NSTEMI Appreciate cardiology input Qualifiers: Coronary Disease-Associated Artery/Lesion type: [place] artery [place] vs. transplanted heart: [place] heart Associated angina: angina presence unspecified Qualified Code(s): I25.10 - Atherosclerotic heart disease of [place] coronary artery without angina pectoris (6) Anterior epistaxis Current Visit: Yes Status: Resolved Assessment and plan: ENT input appreciated (7) PAF (paroxysmal atrial fibrillation) Current Visit: Yes Status: Acute Assessment and plan: Rate controlled with beta joelle Anticoagulation with aspirin (8) DVT prophylaxis Current Visit: Yes Status: Acute Assessment and plan: Heparin SQ (9) Acute kidney injury Current Visit: Yes Status: Acute Assessment and plan: Likely secondary to Diuretic support Will hold lisinopril will change to low dose diuretic support, patient did not receive any lasix or lisinopril yesterday due to renal function, however given severity of CHF, will continue low dose Lasix and hold Lisinopril closely monitor renal function (10) Hypokalemia Current Visit: Yes Status: Acute Assessment and plan: K supplemented continue to monitor electrolytes and replace as needed - Subjective Interval history: Patient seen and examined with family present at bedside. Pt reports of feeling better and denies any fever, chills or any discomfort at this time. PT eval noted: Inpatient swing bed recommended case management social worker consulted for placement - Constitutional Vitals: Temp Pulse Resp BP Pulse Ox 98.1 F 62 14 162/65 96 02/28/17 07:46 02/28/17 07:46 02/28/17 07:46 02/28/17 07:46 02/28/17 10:23 General appearance: Present: A&O X 3 (frail ), pleasant, no acute distress, answers questions appropriately - Head Head exam: Present: atraumatic, normocephalic - Eye Eye exam: Present: normal appearance, conjuntiva pink, sclera anicteric - Respiratory Respiratory exam: Present: CTAB. Absent: accessory muscle use, rales, rhonchi, wheezes - Cardiovascular Cardiovascular exam: Present: RRR, +S1, +S2. Absent: diastolic murmur, gallop, rubs, systolic murmur - GI/Abdominal GI/Abdominal exam: Present: normal bowel sounds, soft, no peritoneal signs. Absent: distended, tenderness - Extremities Exam Extremities exam: Present: pedal edema, warm, radial pulses palpable and symetrical. Absent: calf tenderness - Neurological Exam Neurological exam: Present: alert, oriented X3 - Psychiatric Psychiatric exam: Present: normal affect, normal mood Internal Medicine: Result - Labs CBC & Chem 7: 02/28/17 04:45 02/28/17 04:45 Labs: Short CBC 02/28/17 Range/Units 04:45 WBC 13.5 H (4.3-11.1) K/mcL Hgb 8.8 L (12.9-16.9) g/dL Hct 26.2 L (37.5-50.1) % Plt Count 139 L (140-400) K/mcL Neutrophils # 11.0 H (1.6-8.9) K/mcL BMP 02/28/17 04:45 Sodium 143 Potassium 3.3 L Chloride 103 Carbon Dioxide 32 H BUN 51 H Creatinine 1.38 H Glucose 202 H Calcium 8.2 L - ABG Interpretation ABG results: PT/INR, D-dimer PT 11.4 Seconds (9.4-12.1) 02/24/17 23:11 - Impressions Impressions Chest X-Ray 02/28/17 08:04 IMPRESSION: 1. Right-sided pleural effusion 2. Improved aeration at the lung bases 3. No definite acute airspace disease D/ / Ravinder Agudelo MD / Ravinder Agudelo MD Interpreting Provider: Ravinder Agudelo MD Consult Discharge Plan - Plan Referrals: Ravinder Sifuentes MD [Partnered Physician] - 03/04/17 8:35 am Arie Willis DO [Primary Care Provider] - (web request sent ok 02/25/17)
[2017-02-28] MEDS: Acetaminophen 325 MG TABLET PO PRN ×2 (14:22→20:01)
[2017-03-01 05:40] LABS: Hematocrit 27.6 % (37.5-50.1); Mean Corpuscular HGB Conc 32.6 g/dL (31.6-35.5); Mean Corpuscular Hemoglobin 34.2 pg (28.0-33.3); Mean Corpuscular Volume 104.9 fL (83.0-100.0); Mean Platelet Volume 11.4 fL (9.4-12.4); Nucleated Red Blood Cells 0.4 /100 WBC (0); Platelet Count 132 K/mcL (140-400); Red Blood Count 2.63 M/mcL (4.19-5.50); Red Cell Distribution Width 21.4 % (11.5-14.5)
[2017-03-01] MEDS: *HR* Heparin 5,000 UNIT/ML VIAL SQ SCH ×2 (05:46→18:28)
[2017-03-01 05:51] LABS: BUN/Creatinine Ratio 39 (6-26); Blood Urea Nitrogen 52 mg/dL (8-26); Calcium 8.3 mg/dL (8.6-10.8); Carbon Dioxide 30 mEq/L (19-29); Chloride 107 mEq/L (98-109); Glucose 179 mg/dL (70-99); Magnesium 2.3 mg/dL (1.6-2.6); Osmolality,Calculated 319 (280-300); Phosphorous 2.6 mg/dL (2.3-4.7); Potassium 3.5 mEq/L (3.5-4.5); Sodium 145 mEq/L (136-145); eGFR For African Americans > 60 (> 60); eGFR For Non-African Americans 52 (> 60)
[2017-03-01 06:25] LABS: Anisocytosis 1+ (Not Present); Lymphocytes # 1.7 K/mcL (0.6-4.6); Macrocytosis Present (Not Present); Neutrophils # 9.5 K/mcL (1.6-8.9); Reactive Lymphocytes Present (Not Present)
[2017-03-01 06:27] LABS: Platelet Estimate Normal (Normal)
[2017-03-01] MEDS: Potassium Chloride Elixir 20 MEQ/15 ML UDC PO SCH ×2 (08:22→21:00)
[2017-03-01] MEDS: Aspirin 81 MG TAB.CHEW PO SCH (08:22)
[2017-03-01] MEDS: Furosemide 20 MG/2 ML VIAL IVP SCH (08:22)
[2017-03-01] MEDS: Lisinopril 20 MG TABLET PO SCH (08:22)
[2017-03-01] MEDS: Metoprolol XL (24 HR) Succ 25 MG TAB.ER.24H PO SCH (08:22)
[2017-03-01] MEDS: Acetaminophen 325 MG TABLET PO PRN ×2 (08:24→16:27)
[2017-03-01] MEDS: Saline Nasal Spray 44 ML BOTTLE NS SCH ×3 (08:24→21:00)
--- NOTE | 2017-03-01 12:49 | Internal Med Progress Note ---
Date of Encounter: 03/01/17 Time of Encounter: 12:47 - Assessment and plan (1) NSTEMI (non-ST elevated myocardial infarction) Current Visit: Yes Status: Acute Assessment and plan: Cardiology input appreciated s/p [facility] (02/26/17): Revealed moderate 3 vessel disease. Patient received PCI/ JANICE to mid RCA. Will continue dual antiplatelet therapy, statin, beta joelle Echo showed EF preserved at 60-65% Discharge planning initiated awaiting placement to an Inpatient swing bed facility for rehab social work program coordinator consulted (2) Leukocytosis Current Visit: Yes Status: Acute Assessment and plan: Possibly from [place] Patient with no fever, tachycardia, no source of infection at this time Lactic acid normalized Will repeat UA continue ceftriaxone empirically CXR negative for any acute infectious process Will treat with five days of abx and continue to monitor (Day 4/5) Qualifiers: Leukocytosis type: unspecified Qualified Code(s): D72.829 - Elevated white blood cell count, unspecified (3) Acute CHF (congestive heart failure) Current Visit: Yes Status: Acute Assessment and plan: Continue diuresis FLuid restriction diet Strict I/O Daily weights Monitor K and Chem As in NSTEMI Qualifiers: Congestive heart failure type: diastolic Qualified Code(s): I50.31 - Acute diastolic (congestive) heart failure (4) Essential hypertension Current Visit: Yes Status: Chronic Assessment and plan: Noted to remain hypertensive Added Amlodipine 5mg PO qd Hydralazine 10mg IV q6h PRN SBP>160 continue home medications (5) CAD (coronary artery disease) Current Visit: Yes Status: Chronic Assessment and plan: Chronic, now with NSETMI Management as in NSTEMI Appreciate cardiology input Qualifiers: Coronary Disease-Associated Artery/Lesion type: [place] artery [place] vs. transplanted heart: [place] heart Associated angina: angina presence unspecified Qualified Code(s): I25.10 - Atherosclerotic heart disease of [place] coronary artery without angina pectoris (6) Anterior epistaxis Current Visit: Yes Status: Resolved Assessment and plan: ENT input appreciated (7) PAF (paroxysmal atrial fibrillation) Current Visit: Yes Status: Acute Assessment and plan: Rate controlled with beta joelle Anticoagulation with aspirin (8) DVT prophylaxis Current Visit: Yes Status: Acute Assessment and plan: Heparin SQ (9) Acute kidney injury Current Visit: Yes Status: Acute Assessment and plan: Likely secondary to Diuretic support improving closely monitor renal function (10) Hypokalemia Current Visit: Yes Status: Resolved Assessment and plan: Resolved continue to monitor electrolytes and replace as needed - Subjective Interval history: Patient seen and examined with daughter present at bedside. Pt reports of feeling better and denies any fever, chills or any discomfort at this time. Patient ambulating with walker and assistance. PT eval noted: Inpatient swing bed recommended social work program coordinator consulted for placement - Constitutional Vitals: Temp Pulse Resp BP Pulse Ox 97.6 F 64 14 174/72 95 03/01/17 12:37 03/01/17 12:37 03/01/17 12:37 03/01/17 12:37 03/01/17 12:37 General appearance: Present: A&O X 3 (frail ), pleasant, no acute distress, answers questions appropriately - Head Head exam: Present: atraumatic, normocephalic - Eye Eye exam: Present: normal appearance, conjuntiva pink, sclera anicteric - Respiratory Respiratory exam: Present: CTAB. Absent: respiratory distress, wheezes, tachypnea - Cardiovascular Cardiovascular exam: Present: RRR, +S1, +S2. Absent: diastolic murmur, gallop, rubs, systolic murmur - GI/Abdominal GI/Abdominal exam: Present: normal bowel sounds, soft, no peritoneal signs. Absent: distended, tenderness - Extremities Exam Extremities exam: Present: pedal edema, warm, radial pulses palpable and symetrical. Absent: calf tenderness, cyanotic - Neurological Exam Neurological exam: Present: alert, oriented X3 - Psychiatric Psychiatric exam: Present: normal affect, normal mood Internal Medicine: Result - Labs CBC & Chem 7: 03/01/17 05:20 03/01/17 05:20 Labs: Short CBC 03/01/17 Range/Units 05:20 WBC 12.2 H (4.3-11.1) K/mcL Hgb 9.0 L (12.9-16.9) g/dL Hct 27.6 L (37.5-50.1) % Plt Count 132 L (140-400) K/mcL Neutrophils # 9.5 H (1.6-8.9) K/mcL BMP 03/01/17 05:20 Sodium 145 Potassium 3.5 Chloride 107 Carbon Dioxide 30 H BUN 52 H Creatinine 1.32 H Glucose 179 H Calcium 8.3 L - ABG Interpretation ABG results: PT/INR, D-dimer PT 11.4 Seconds (9.4-12.1) 02/24/17 23:11 Consult Discharge Plan - Plan Referrals: Ravinder Sifuentes MD [Partnered Physician] - 03/04/17 8:35 am Arie Willis DO [Primary Care Provider] - (web request sent ok 02/25/17)
[2017-03-01] MEDS ORDERED: amLODIPine 5 MG TABLET PO SCH (14:00)
--- NOTE | 2017-03-01 17:52 | Electrocardiograph Report ---
[place] [id number] Test Date: 2017-02-28 Pat Name: Aydin Sterling Department: 112 Room: [facility] Gender: M [employer]: : 1935 Requested By: Amber Carr Order Number: [id number] Reading MD: Cortney Murray Measurements Intervals [place] Rate: 61 P: 27 [place]: 185 QRS: -16 QRSD: 156 T: 122 QT: 473 QTc: 477 Interpretive Statements SINUS RHYTHM LEFT BUNDLE BRANCH BLOCK Electronically Signed On 03-01-2017 17:50:30 EDT by Cortney Murray
[2017-03-02] MEDS: Acetaminophen 325 MG TABLET PO PRN (02:53)
[2017-03-02 03:50] LABS: Hematocrit 26.3 % (37.5-50.1); Hemoglobin 8.7 g/dL (12.9-16.9); Mean Corpuscular HGB Conc 33.1 g/dL (31.6-35.5); Mean Corpuscular Hemoglobin 34.9 pg (28.0-33.3); Mean Corpuscular Volume 105.6 fL (83.0-100.0); Mean Platelet Volume 12.4 fL (9.4-12.4); Monocytes # 0.7 K/mcL (0.0-1.3); Nucleated Red Blood Cells 0.3 /100 WBC (0); Platelet Count 134 K/mcL (140-400); Red Blood Count 2.49 M/mcL (4.19-5.50); Red Cell Distribution Width 21.1 % (11.5-14.5)
[2017-03-02 03:59] LABS: BUN/Creatinine Ratio 43 (6-26); Blood Urea Nitrogen 54 mg/dL (8-26); Calcium 8.1 mg/dL (8.6-10.8); Carbon Dioxide 30 mEq/L (19-29); Chloride 107 mEq/L (98-109); Glucose 177 mg/dL (70-99); Magnesium 2.1 mg/dL (1.6-2.6); Osmolality,Calculated 319 (280-300); Phosphorous 2.9 mg/dL (2.3-4.7); Potassium 3.6 mEq/L (3.5-4.5); Sodium 145 mEq/L (136-145); eGFR For African Americans > 60 (> 60); eGFR For Non-African Americans 55 (> 60)
[2017-03-02 04:32] LABS: Lymphocytes # 1.2 K/mcL (0.6-4.6); Neutrophils # 9.9 K/mcL (1.6-8.9)
[2017-03-02 04:33] LABS: Anisocytosis 1+ (Not Present); Macrocytosis Present (Not Present); Platelet Estimate Normal (Normal); Toxic Granulation Present (Not Present)
[2017-03-02] MEDS ORDERED: amLODIPine 5 MG TABLET PO SCH (09:00)
[2017-03-02] MEDS: *HR* Heparin 5,000 UNIT/ML VIAL SQ SCH (09:00)
[2017-03-02] MEDS: Aspirin 81 MG TAB.CHEW PO SCH (09:01)
[2017-03-02] MEDS: Metoprolol XL (24 HR) Succ 25 MG TAB.ER.24H PO SCH (09:01)
[2017-03-02] MEDS: Lisinopril 20 MG TABLET PO SCH (09:01)
[2017-03-02] MEDS: Furosemide 20 MG/2 ML VIAL IVP SCH (09:01)
[2017-03-02] MEDS: Potassium Chloride Elixir 20 MEQ/15 ML UDC PO SCH (09:01)
[2017-03-02] MEDS: Saline Nasal Spray 44 ML BOTTLE NS SCH (09:10)
[2017-03-02 10:01] VITALS: BP 170/72
[2017-03-02] MEDS ORDERED: Acetaminophen/Butalbital/CaffeineTABLET PO PRN (13:53)
--- NOTE | 2017-03-02 14:31 | Discharge Summary ---
Date of Encounter: 03/02/17 Time of Encounter: 14:24 - Discharge Diagnosis (1) NSTEMI (non-ST elevated myocardial infarction) Priority: Primary Status: Acute (2) Leukocytosis Priority: Secondary Status: Acute Qualifiers: Leukocytosis type: unspecified Qualified Code(s): D72.829 - Elevated white blood cell count, unspecified (3) Acute CHF (congestive heart failure) Priority: Secondary Status: Acute Qualifiers: Congestive heart failure type: diastolic Qualified Code(s): I50.31 - Acute diastolic (congestive) heart failure (4) Essential hypertension Priority: Secondary Status: Chronic (5) CAD (coronary artery disease) Priority: Secondary Status: Chronic Qualifiers: Coronary Disease-Associated Artery/Lesion type: [place] artery [place] vs. transplanted heart: [place] heart Associated angina: angina presence unspecified Qualified Code(s): I25.10 - Atherosclerotic heart disease of [place] coronary artery without angina pectoris (6) Anterior epistaxis Priority: Secondary Status: Resolved (7) PAF (paroxysmal atrial fibrillation) Priority: Secondary Status: Chronic (8) DVT prophylaxis Priority: Secondary Status: Acute (9) Acute kidney injury Priority: Secondary Status: Resolved (10) Hypokalemia Priority: Secondary Status: Resolved - Discharge Medications Prescriptions: Acetaminophen/Butalbital/Caffe [Fioricet] 1 each PO Q6HR PRN #30 tablet PRN Reason: Headache Amlodipine [Norvasc] 10 mg PO DAILY #30 tablet Clopidogrel [Plavix] 75 mg PO DAILY #30 tablet Furosemide [Lasix] 20 mg PO BID #60 tablet Lisinopril [Zestril] 40 mg PO DAILY #30 tablet Potassium Chloride Elixir [Potassium Chloride] 20 meq PO BID #30 udc Tramadol HCl [Ultram] 50 mg PO BID PRN #20 tab PRN Reason: Severe Pain Home Medications: Aspirin 81 mg PO DAILY 02/25/17 [History] Vitamin B Complex [B Complex] 1 tab PO DAILY 02/25/17 [History] Acetaminophen [Tylenol] 650 mg PO Q6HR PRN #0 tablet 03/02/17 [Rx] Acetaminophen/Butalbital/Caffe [Fioricet] 1 each PO Q6HR PRN #30 tablet [Rx] Amlodipine [Norvasc] 10 mg PO DAILY #30 tablet 03/02/17 [Rx] Clopidogrel [Plavix] 75 mg PO DAILY #30 tablet 03/02/17 [Rx] Docusate [Colace] 100 mg PO BID PRN #0 capsule 03/02/17 [Rx] Furosemide [Lasix] 20 mg PO BID #60 tablet 03/02/17 [Rx] Lisinopril [Zestril] 40 mg PO DAILY #30 tablet 03/02/17 [Rx] Metoprolol XL (24 HR) Succ [Toprol Xl] 25 mg PO DAILY tab.er.24h 03/02/17 [Rx] Potassium Chloride Elixir [Potassium Chloride] 20 meq PO BID #30 udc 03/02/17 [ Rx] Rosuvastatin [Crestor] 20 mg PO HS tablet 03/02/17 [Rx] Tramadol HCl [Ultram] 50 mg PO BID PRN #20 tab 03/02/17 [Rx] Allergies/Adverse Reactions: Allergies metoprolol [From Toprol XL] Adverse Reaction (Verified 02/25/17 08:46) See Comments PULSE DROPPED Procedures/tests Complete & Pending: Procedures Performed prior 72 hours Category Date Time Status ECG 12 lead ECG [ECG] Routine Y 02/28/17 12:02 Completed Date of admission: 02/25/17 13:34 Primary care physician: Arie Willis Consults: 02/26/17 09:02 Consult to ENT [CONS] Stat Consulting Provider: MAICOL Aburto Reason for Consult: epistaxis, NSTEMI on heaprin drip, heparin has been held for now Call Completed: Yes 02/27/17 10:43 PT [Consult to Physical Therapy] [CONS] Routine Comment: Evaluate, develop and implement POC 02/27/17 10:44 Consult to Day Care Supervisor [CONS] Routine Reason for SW Consult: Discharge planning OT [Consult to Occupational Therapy] [CONS] Routine Comment: Evaluate, develop and implement POC 02/27/17 12:20 PT [Consult to Physical Therapy] [CONS] Stat Comment: Evaluate, develop and implement POC 02/27/17 12:21 OT [Consult to Occupational Therapy] [CONS] Stat Comment: Evaluate, develop and implement POC Discharging clinician: Amber Carr Anticipated date of discharge: 03/02/17 - Patient Status Disposition: Transfer SNF Condition: Good Functional capacity at discharge: uses cane/walker Overall status at discharge: patient is back to baseline - Discharge Instructions Follow Up With: Ravinder Sifuentes MD [Partnered Physician] - 03/04/17 8:35 am Arie Willis DO [Primary Care Provider] - (web request sent ok 02/25/17) Additional Instructions: Please follow up with your primary care physician, ENT, and cardiology within five days after your discharge from the hospital. Metoprolol, Amlodipine, Plavix, Lisinopril, Crestor, Lasix have been added to your home medication list. Please take these medications as prescribed. Continue Aspirin and plavix daily as prescribed closely monitor your blood pressure after discharged. If you continue to have SBP>150, please inform your primary care physician Please seek medical help immediately if you experience shortness of breath or have difficulty breathing. - Diet and Activity Activity: as per physical therapy Diet: low salt diet Hospital course: Mr. Sterling is a 81 year old male with past medical history of CAD, hyperlipidemia , hypertension, [place] who was admitted for management of NSTEMI and peripheral edema. Patient was followed by cardiology and had left heart catheterization. LHC showed moderate three-vessel disease and patient received PCI/drug-eluting stent placement to mid RCA. Patient was started on aspirin and Plavix. Patient was also started on diuretic therapy for CHF. He responded appropriately to therapy. He was also noted to be hypertensive for which lisinopril, amlodipine, and metoprolol were initiated. Patient's hospital course was also complicated with epistaxis secondary to heparin gtt. ENT was consulted and packing was inserted with resolution of epistaxis. Patient also reported of having chronic history of dizziness which has been worsening for which patient is scheduled for an outpatient follow-up with ENT on Thursday. Patient was evaluated by physical therapy and inpatient rehabilitation was recommended. At this time patient is hemodynamically stable and will be discharged to rehabilitation. He is to follow-up with his cardiology, ENT, primary care physician after discharge. Patient and family demonstrated understanding of his diagnosis and agree with the discharge care and plan. - Time Spent with Patient Total time spent providing and/or coordinating discharge services: Greater than 30 minutes - Constitutional Vitals: Temp Pulse Resp BP Pulse Ox 97.9 F 75 16 170/72 96 03/02/17 08:50 03/02/17 08:50 03/02/17 08:50 03/02/17 08:50 03/02/17 08:50 General appearance: Present: A&O X 3 (frail ), pleasant, no acute distress, answers questions appropriately - Head Head exam: Present: atraumatic, normocephalic - Eye Eye exam: Present: conjuntiva pink, sclera anicteric - Respiratory Respiratory exam: Present: CTAB. Absent: accessory muscle use, rales, rhonchi, wheezes - Cardiovascular Cardiovascular exam: Present: RRR, +S1, +S2. Absent: diastolic murmur, gallop, rubs, systolic murmur - GI/Abdominal GI/Abdominal exam: Present: normal bowel sounds, soft, no peritoneal signs. Absent: distended, tenderness - Extremities Exam Extremities exam: Present: pedal edema, warm, radial pulses palpable and symetrical. Absent: calf tenderness - Neurological Exam Neurological exam: Present: alert, oriented X3 - Psychiatric Psychiatric exam: Present: normal affect, normal mood
--- NOTE | 2017-03-02 14:41 | Physician Discharge Referral ---
ExtendedCare Referral Info Transfer To: inpatient rehab Provider in Charge after Transfer: PCP - Diagnosis (1) NSTEMI (non-ST elevated myocardial infarction) Priority: Primary Status: Acute (2) Leukocytosis Priority: Secondary Status: Acute (3) Acute CHF (congestive heart failure) Priority: Secondary Status: Acute (4) Essential hypertension Priority: Secondary Status: Chronic (5) CAD (coronary artery disease) Priority: Secondary Status: Chronic (6) Anterior epistaxis Priority: Secondary Status: Resolved (7) PAF (paroxysmal atrial fibrillation) Priority: Secondary Status: Chronic (8) DVT prophylaxis Priority: Secondary Status: Acute (9) Acute kidney injury Priority: Secondary Status: Resolved (10) Hypokalemia Priority: Secondary Status: Resolved - Transfer Medications Prescriptions: Acetaminophen/Butalbital/Caffe [Fioricet] 1 each PO Q6HR PRN #30 tablet PRN Reason: Headache Amlodipine [Norvasc] 10 mg PO DAILY #30 tablet Clopidogrel [Plavix] 75 mg PO DAILY #30 tablet Furosemide [Lasix] 20 mg PO BID #60 tablet Lisinopril [Zestril] 40 mg PO DAILY #30 tablet Potassium Chloride Elixir [Potassium Chloride] 20 meq PO BID #30 udc Tramadol HCl [Ultram] 50 mg PO BID PRN #20 tab PRN Reason: Severe Pain Home Medications: Aspirin 81 mg PO DAILY 02/25/17 [History] Vitamin B Complex [B Complex] 1 tab PO DAILY 02/25/17 [History] Acetaminophen [Tylenol] 650 mg PO Q6HR PRN #0 tablet 03/02/17 [Rx] Acetaminophen/Butalbital/Caffe [Fioricet] 1 each PO Q6HR PRN #30 tablet [Rx] Amlodipine [Norvasc] 10 mg PO DAILY #30 tablet 03/02/17 [Rx] Clopidogrel [Plavix] 75 mg PO DAILY #30 tablet 03/02/17 [Rx] Docusate [Colace] 100 mg PO BID PRN #0 capsule 03/02/17 [Rx] Furosemide [Lasix] 20 mg PO BID #60 tablet 03/02/17 [Rx] Lisinopril [Zestril] 40 mg PO DAILY #30 tablet 03/02/17 [Rx] Metoprolol XL (24 HR) Succ [Toprol Xl] 25 mg PO DAILY tab.er.24h 03/02/17 [Rx] Potassium Chloride Elixir [Potassium Chloride] 20 meq PO BID #30 udc 03/02/17 [ Rx] Rosuvastatin [Crestor] 20 mg PO HS tablet 03/02/17 [Rx] Tramadol HCl [Ultram] 50 mg PO BID PRN #20 tab 03/02/17 [Rx] Allergies/Adverse Reactions: Allergies metoprolol [From Toprol XL] Adverse Reaction (Verified 02/25/17 08:46) See Comments PULSE DROPPED - Respiratory Orders Smoking Cessation: Smoking cessation has been advised. For more information, call the [place] Tobacco Quit Line at 8-248-QVGJ-NOW. - Rehabiliation Orders Other: Please follow up with your primary care physician, ENT, and cardiology within five days after your discharge from the hospital. Metoprolol, Amlodipine, Plavix, Lisinopril, Crestor have been added to your home medication list. Please take these medications as prescribed. Continue Aspirin and plavix daily as prescribed closely monitor your blood pressure after discharged. If you continue to have SBP>150, please inform your primary care physician Please seek medical help immediately if you experience shortness of breath or have difficulty breathing. CERTIFICATION: I certify that the transfer of the above named patient to an Extended Care Facility is necessary for the continuing treatment of the diagnosis listed. The above information is true and accurate reflection of patient's current condition. Confidential - Redisclosure prohibited without a patient's written consent.
--- NOTE | 2017-03-03 09:33 | Invasive Diagnostic Lab ---
Name: Aydin Sterling Date of Study: 02/26/2017 Date: 1935 Ht: 165.0 cm /65.0 in Medical Record#: [id number] Age: 81 Wt: 73. kg / 160.94 lb Account/Order#: [id number] Gender: Male BSA: 1.8 Order #: [id number] Fluoro Dose: 1016 mGy BMI: 26.81 Procedure Physician: Vinh Malone MD, FACC Referring MD: Referring MD: Procedures Performed: LEFT HEART CATH Stent w/ PTCA Single Major Vessel Indications: Non-Stemi Impressions: There is severe one vessel coronary artery disease. Patient had successful PTCA/Drug-Eluting Stent placement in the mid RCA. There is moderate three vessel coronary artery disease. Recommendations: Optimal medical therapy of patient's disease. Aggressive risk factor modification. History/Risk Factors: CAD ARTHRITIS MIGRAINES Hypertension Dyslipidemia Prior [place] Procedure Access obtained in the right Radial artery by percutaneous puncture Complications: None Contrast: Isovue 105ml Closure Device: Mechanical Compression Hemodynamics: Pressures Site Systolic/ A Wave Diastolic/ V Wave End Diastolic/ Mean HR AO 110 64 85 56 AO 113 63 86 58 AO 120 71 92 54 LV 109 6 9 54 LV 138 11 18 65 AO 126 49 81 63 AO 118 43 72 45 AO 119 50 75 49 AO 128 57 83 49 Coronary Dominance: Lesion Findings/Interventions * Left Main Coronary Artery The LMCA is angiographically free of disease. * Left Anterior Descending There is a 50% stenosis in the Mid LAD. * Circumflex There is a 30% stenosis in the Mid Circumflex. * Right Coronary Artery There is a 60% stenosis in the Proximal RCA. There is a 38 mm long, 99% stenosis in the Mid RCA. The lesion has a ELOISA flow of 2, has thrombus present, and has collaterals which feed from left to right. An intervention was performed on the Mid RCA with a final stenosis of 0%. There were no lesion complications. The final ELOISA flow was 3. Interventional Device(s) Vessel Segment Type Name Diameter (mm) Length (mm) Mid RCA Balloon Emerge Monorail 2 15 Mid RCA Balloon [place] Emerge 2.5 8 Mid RCA Drug Eluting Stent Synergy 2.25 38 Mid RCA Balloon NC Trek Rx 2.25 20 Updated by Kiarra Benjamin RN on 02/26/2017 4:35:14 PM Vinh Malone MD, FACC electronically signed on 03/03/2017 9:27:31 AM with status of Final
== END 2017-03-02 15:45 | disposition other institution (70) | DRG 246 ==
LOC: EDBD → EMEROO 21:02 → 2ANU 21:02 → SUATTDRO 02-25 13:34
PROVIDERS: ADMIT Internal Medicine; ATTEND Internal Medicine

== ENCOUNTER 2017-03-06 14:27 | Inpatient (IN) ==
--- NOTE | 2017-03-06 14:38 | Emergency Department Note ---
Disposition Clinical Impression: Acute CHF (congestive heart failure), CAD (coronary artery disease), Pulmonary edema, Renal insufficiency, Elevated troponin Disposition: Admitted As Inpatient Condition: Fair Referrals: Arie Willis DO [Primary Care Provider] - Time of Disposition: 17:36 General Adult HPI - General Chief complaint: ED Dizziness Stated complaint: dizziness, recent heart cath Time Seen by Provider: 03/06/17 14:31 Source: patient, family Mode of arrival: wheelchair Limitations: age Nursing Notes Reviewed: Yes Vital Signs Reviewed: Yes - History of Present Illness HPI Narrative: Patient presents to the ED with multiple complaints. The patient's family member reports that the patient has had issues with insomnia and dizziness over the last several years. This has recently gotten worse in the last several months. She states that they initially thought it could have been due to his history of CHF and swelling in his legs. States that he has been on Lasix but the symptoms continue. Reports that he was admitted to the hospital and underwent left heart catheter for a 99% blockage. They saw cardiology, who states that the heart Should help his symptoms. However, she states that this has not helped. She reports no acute change in his mental status or symptoms, but that he has not getting any better. Patient is a very poor historian and unable to provide much history. - Related Data Home Medications Medication Instructions Recorded Confirmed Aspirin 81 mg PO DAILY 02/25/17 03/06/17 Vitamin B Complex [B Complex] 1 tab PO DAILY 02/25/17 03/06/17 LORazepam [Ativan] 0.5 mg PO Q4H PRN 03/06/17 03/06/17 Oxycodone HCl/Acetaminophen 1 each PO Q6H PRN 03/06/17 03/06/17 [Percocet 7.5-325 mg Tablet] Previous Rx's Medication Instructions Recorded Acetaminophen [Tylenol] 650 mg PO Q6HR PRN #0 tablet 03/02/17 Acetaminophen/Butalbital/Caffe 1 each PO Q6HR PRN #30 tablet 03/02/17 [Fioricet] Amlodipine [Norvasc] 10 mg PO DAILY #30 tablet 03/02/17 Clopidogrel [Plavix] 75 mg PO DAILY #30 tablet 03/02/17 Docusate [Colace] 100 mg PO BID PRN #0 capsule 05/01/17 Furosemide [Lasix] 20 mg PO BID #60 tablet 03/02/17 Lisinopril [Zestril] 40 mg PO DAILY #30 tablet 03/02/17 Metoprolol XL (24 HR) Succ [Toprol 25 mg PO DAILY tab.er.24h 03/02/17 Xl] Potassium Chloride Elixir 20 meq PO BID #30 udc 03/02/17 [Potassium Chloride] Rosuvastatin [Crestor] 20 mg PO HS tablet 03/02/17 Allergies Allergy/AdvReac Type Severity Reaction Status Date / Time metoprolol [From Toprol XL] AdvReac See Verified 03/06/17 16:20 Comments Limitations: ROS unobtainable due to patients medical condition (Patient responds with. I do not know. When asked any questions) Past Medical History - Past Medical History Source: old records reviewed, obtained from family Medical history: Reports: arthritis, coronary artery disease, dementia, hyperlipidemia, hypertension, migraine, myocardial infarction Surgical history: Reports: angioplasty/stent Psychiatric history: Reports: no psych history - Social History Smoking Status: Former smoker Smokeless Tobacco Status: Yes Alcohol use: Reports: occasionally Drug use: Reports: none Physical Exam - General Limitations: age General appearance: alert, in no apparent distress - Head Head exam: atraumatic, normocephalic, normal inspection - Eye Eye exam: Present: PERRL - ENT ENT exam: mucous membranes dry - Neck Neck exam: Present: trachea midline - Chest Chest inspection: Present: normal inspection, symmetric chest wall rise - Respiratory Respiratory exam: Present: other (rales). Absent: normal lung sounds bilaterally, respiratory distress - Cardiovascular Cardiovascular exam: Present: regular rate - Abdominal Exam Abdominal exam: Present: soft, Non-Tender - Extremities Exam Extremities exam: Present: full ROM (compression stockings) - Neurological Exam Neurological exam: Present: alert. Absent: oriented X3 (oriented to person only ) - Skin Skin exam: Present: warm, dry, intact, normal color Course - Reevaluation(s) Reevaluation #1: Patient has multiple lab abnormalities that are slightly worse or about his baseline. His troponin is elevated, but appears to be trending down from his previous. His head CT is negative. Patient was sent over from [place] to be admitted for suspected CHF exacerbation." Reasonable. However, I think a goals of care discussion should take place during this admission to determine the best placement for this patient. Vital Signs Temperature 97.9 F 03/06/17 14:36 Pulse Rate 73 03/06/17 14:36 Respiratory Rate 18 03/06/17 14:36 Blood Pressure 165/77 03/06/17 14:36 O2 Sat by Pulse Oximetry 98 03/06/17 14:36 Temperature 97.9 F 03/06/17 14:36 Pulse Rate 62 03/06/17 16:52 Respiratory Rate 14 03/06/17 16:52 Blood Pressure 155/62 03/06/17 16:52 O2 Sat by Pulse Oximetry 99 03/06/17 16:52 Oxygen Delivery Oxygen Delivery Nasal Cannula Medical Decision Making - MDM Narrative Medical decision making narrative: I examined this patient and my medical decision-making was reviewed with the COMPOSITION BOARD PRESS OPERATOR/PA/Advanced Practice Nurse/Resident Physician. I agree with the documented findings, disposition and treatment plan as described except to the extent set forth below. Patient presents from inpatient rehabilitation at [facility], he was discharged with CHF possible CAD continuous headaches. states is not progressed well. He had a CT scan last admission that showed white vessel disease here he denies any chest pain. He somnolent. Checking a chair EKG workup and reassess. Most likely need admission. Patient was seen by myself and Dr. Craig I agree with his evaluation and management plans to rescue the patient's stay. EKG done at 1438 hrs. shows a sinus rhythm with a rate of 72, QRS 157, sy cc 497, he has a left bundle branch block, no signs of acute ischemia, compared this to an EKG had done at the end of last month shows no changes except for rate. 1540 hrs.: Multiple abnormalities on his lab work does not appear to be acute. Werness images had. He will still need readmission. 's in agreement with this plan. - Medical Records Medical records reviewed: Yes I reviewed the patient's medical records. - Lab Data Lab results reviewed: Yes I reviewed the patient's lab results. Result diagrams: 03/06/17 15:25 03/06/17 15:14 Lab Results 03/06/17 03/06/17 03/06/17 Range/Units 14:55 15:14 15:14 WBC (4.3-11.1) K/mcL RBC (4.19-5.50) M/mcL Hgb (12.9-16.9) g/dL Hct (37.5-50.1) % MCV (83.0-100.0) fL MCH (28.0-33.3) pg MCHC (31.6-35.5) g/dL RDW (11.5-14.5) % Plt Count (140-400) K/mcL MPV (9.4-12.4) fL Seg Neutrophils % % Band Neutrophils % (0-4) % Lymphocytes % % Metamyelocytes % (0) % Myelocytes % (0) % Neutrophils # (1.6-8.9) K/mcL Lymphocytes # (0.6-4.6) K/mcL Nucleated RBCs/100 WBC (0) /100 WBC Platelet Estimate (Normal) Immature Plt Fraction (1.1-6.1) % PT 11.7 (9.4-12.1) Seconds INR 1.1 APTT 24.6 L (26.0-36.0) Seconds VBG pH (7.32-7.42) pH Units VBG pCO2 (41-51) mmHg VBG pO2 (25-40) mmHg VBG HCO3 (21-27) mEq/L Sodium 148 H (136-145) mEq/L Potassium 3.2 L (3.5-4.5) mEq/L Chloride 107 (98-109) mEq/L Carbon Dioxide 31 H (19-29) mEq/L BUN 44 H (8-26) mg/dL Creatinine 1.45 H (0.72-1.25) mg/dL Est GFR ( Amer) 56 L (> 60) Est GFR (Non-Af Amer) 47 L (> 60) BUN/Creatinine Ratio 30 H (6-26) Glucose 166 H (70-99) mg/dL Calculated Osmolality 321 H (280-300) Lactic Acid (0.5-2.2) mmol/L Calcium 8.4 L (8.6-10.8) mg/dL Troponin I (0-0.03) ng/mL B-Natriuretic Peptide (0-100) pg/mL Urine Color Yellow (Yellow) Urine Clarity Clear (Clear) Urine pH 6.5 (5.0-8.0) pH Units Ur Specific [place] 1.015 (1.010-1.025) Urine Protein 100 H (Neg-Trace) mg/dL Urine Glucose (UA) Normal (Normal) mg/dL Urine Ketones Negative (Negative) mg/dL Urine Blood Moderate H (Negative) Urine Nitrite Negative (Negative) Urine Bilirubin Negative (Negative) Urine Urobilinogen Normal (Normal) mg/dL Ur Leukocyte Esterase Negative (Negative) Urine Microscopic RBC 3-5 H (0-3) per hpf Urine Microscopic WBC 3-5 H (0-3) per hpf Ur Squamous Epith Cells Many H (None-Few) per lpf Urine Bacteria None Seen (None-Few) per hpf Hyaline Casts None Seen (None-Few) per lpf Ur Culture Indicated? NO (NO) 03/06/17 03/06/17 03/06/17 Range/Units 15:14 15:25 15:25 WBC 13.6 H (4.3-11.1) K/mcL RBC 2.77 L (4.19-5.50) M/mcL Hgb 9.7 L (12.9-16.9) g/dL Hct 28.8 L (37.5-50.1) % MCV 104.0 H (83.0-100.0) fL MCH 35.0 H (28.0-33.3) pg MCHC 33.7 (31.6-35.5) g/dL RDW 20.0 H (11.5-14.5) % Plt Count 98 L (140-400) K/mcL MPV 12.8 H (9.4-12.4) fL Seg Neutrophils % 89.0 % Band Neutrophils % 4.0 (0-4) % Lymphocytes % 5.0 % Metamyelocytes % 1.0 H (0) % Myelocytes % 1.0 H (0) % Neutrophils # 12.7 H (1.6-8.9) K/mcL Lymphocytes # 0.7 (0.6-4.6) K/mcL Nucleated RBCs/100 WBC 0.7 H (0) /100 WBC Platelet Estimate Decreased L (Normal) Immature Plt Fraction 11.6 H (1.1-6.1) % PT (9.4-12.1) Seconds INR APTT (26.0-36.0) Seconds VBG pH (7.32-7.42) pH Units VBG pCO2 (41-51) mmHg VBG pO2 (25-40) mmHg VBG HCO3 (21-27) mEq/L Sodium (136-145) mEq/L Potassium (3.5-4.5) mEq/L Chloride (98-109) mEq/L Carbon Dioxide (19-29) mEq/L BUN (8-26) mg/dL Creatinine (0.72-1.25) mg/dL Est GFR ( Amer) (> 60) Est GFR (Non-Af Amer) (> 60) BUN/Creatinine Ratio (6-26) Glucose (70-99) mg/dL Calculated Osmolality (280-300) Lactic Acid 1.3 (0.5-2.2) mmol/L Calcium (8.6-10.8) mg/dL Troponin I 0.19 H* (0-0.03) ng/mL B-Natriuretic Peptide (0-100) pg/mL Urine Color (Yellow) Urine Clarity (Clear) Urine pH (5.0-8.0) pH Units Ur Specific [place] (1.010-1.025) Urine Protein (Neg-Trace) mg/dL Urine Glucose (UA) (Normal) mg/dL Urine Ketones (Negative) mg/dL Urine Blood (Negative) Urine Nitrite (Negative) Urine Bilirubin (Negative) Urine Urobilinogen (Normal) mg/dL Ur Leukocyte Esterase (Negative) Urine Microscopic RBC (0-3) per hpf Urine Microscopic WBC (0-3) per hpf Ur Squamous Epith Cells (None-Few) per lpf Urine Bacteria (None-Few) per hpf Hyaline Casts (None-Few) per lpf Ur Culture Indicated? (NO) 03/06/17 03/06/17 Range/Units 15:25 15:25 WBC (4.3-11.1) K/mcL RBC (4.19-5.50) M/mcL Hgb (12.9-16.9) g/dL Hct (37.5-50.1) % MCV (83.0-100.0) fL MCH (28.0-33.3) pg MCHC (31.6-35.5) g/dL RDW (11.5-14.5) % Plt Count (140-400) K/mcL MPV (9.4-12.4) fL Seg Neutrophils % % Band Neutrophils % (0-4) % Lymphocytes % % Metamyelocytes % (0) % Myelocytes % (0) % Neutrophils # (1.6-8.9) K/mcL Lymphocytes # (0.6-4.6) K/mcL Nucleated RBCs/100 WBC (0) /100 WBC Platelet Estimate (Normal) Immature Plt Fraction (1.1-6.1) % PT (9.4-12.1) Seconds INR APTT (26.0-36.0) Seconds VBG pH 7.50 H (7.32-7.42) pH Units VBG pCO2 47 (41-51) mmHg VBG pO2 42 H (25-40) mmHg VBG HCO3 36.7 H (21-27) mEq/L Sodium (136-145) mEq/L Potassium (3.5-4.5) mEq/L Chloride (98-109) mEq/L Carbon Dioxide (19-29) mEq/L BUN (8-26) mg/dL Creatinine (0.72-1.25) mg/dL Est GFR ( Amer) (> 60) Est GFR (Non-Af Amer) (> 60) BUN/Creatinine Ratio (6-26) Glucose (70-99) mg/dL Calculated Osmolality (280-300) Lactic Acid (0.5-2.2) mmol/L Calcium (8.6-10.8) mg/dL Troponin I (0-0.03) ng/mL B-Natriuretic Peptide 480 H (0-100) pg/mL Urine Color (Yellow) Urine Clarity (Clear) Urine pH (5.0-8.0) pH Units Ur Specific [place] (1.010-1.025) Urine Protein (Neg-Trace) mg/dL Urine Glucose (UA) (Normal) mg/dL Urine Ketones (Negative) mg/dL Urine Blood (Negative) Urine Nitrite (Negative) Urine Bilirubin (Negative) Urine Urobilinogen (Normal) mg/dL Ur Leukocyte Esterase (Negative) Urine Microscopic RBC (0-3) per hpf Urine Microscopic WBC (0-3) per hpf Ur Squamous Epith Cells (None-Few) per lpf Urine Bacteria (None-Few) per hpf Hyaline Casts (None-Few) per lpf Ur Culture Indicated? (NO) - Radiology Data Radiology results reviewed: Yes I reviewed the patient's radiology results. - EKG Data EKG #1 EKG attestation: Yes I reviewed and interpreted this EKG. EKG results narrative: Sinus rhythm, left bundle-branch block that is old, rate 64, OK interval 154, QRS 155, QTC 43, left axis deviation, no acute ischemic changes and no chest pain Critical Care Time Critical Care Time: Yes Total Critical Care Time: 30 Attestation: Critical care performed: Time is exclusive of separately billable procedures. Time includes: direct patient care, patient reassessment, coordination of patient care, interpretation of data (laboratory data, radiology data, and respiratory data), review of patient's medical records, medical consultation and documentation of patient care. Procedures included in critical care time: Procedures excluded from critical care time: Susan - Susan Situation: Demographics, MOA Background: Presenting Complaint, Relevant PMH, Meds, & Allergies Assessment: Vital Signs, Course and respsone to treatment, Exam Concerns, Patient/Family Expectation, Pertinant Lab Results, Outstanding Labs Recommendation: Recommendation based on pending studies, treatments, or consults Susan Report Given to: Dr. Saúl Davis Repor Time: 17:37
[2017-03-06 15:08] LABS: Bilirubin,Urine Negative (Negative); Blood,Urine Moderate (Negative); Clarity,Urine Clear (Clear); Color,Urine Yellow (Yellow); Glucose,Urine (UA) Normal (Normal); Ketones,Urine Negative (Negative); Leukocyte Esterase,Urine Negative (Negative); Nitrite,Urine Negative (Negative); PH,Urine 6.5 pH Units (5.0-8.0); Protein,Urine 100 mg/dL (Neg-Trace); Specific Gravity,Urine 1.015 (1.010-1.025); Urobilinogen,Urine Normal (Normal)
[2017-03-06 15:10] LABS: Bacteria,Urine None Seen per hpf (None-Few); Hyaline Casts,Urine None Seen per lpf (None-Few); Squamous Epithelial Cell,Urine Many per lpf (None-Few)
[2017-03-06 15:28] LABS: INR 1.1; Prothrombin Time 11.7 Seconds (9.4-12.1)
[2017-03-06 15:30] LABS: Activated Partial Thrombo Time 24.6 Seconds (26.0-36.0)
[2017-03-06 15:32] LABS: Calcium 8.4 mg/dL (8.6-10.8); Potassium 3.2 mEq/L (3.5-4.5)
[2017-03-06 15:34] LABS: Hematocrit 28.8 % (37.5-50.1); Hemoglobin 9.7 g/dL (12.9-16.9); Immature Platelets 11.6 % (1.1-6.1); Mean Corpuscular HGB Conc 33.7 g/dL (31.6-35.5); Mean Platelet Volume 12.8 fL (9.4-12.4); Nucleated Red Blood Cells 0.7 /100 WBC (0); Red Blood Count 2.77 M/mcL (4.19-5.50); VBG HCO3 36.7 mEq/L (21-27); VBG PH 7.5 pH Units (7.32-7.42)
[2017-03-06 15:37] LABS: Platelet Count 98 K/mcL (140-400)
[2017-03-06 15:54] LABS: Lymphocytes # 0.7 K/mcL (0.6-4.6); Neutrophils # 12.7 K/mcL (1.6-8.9); Platelet Estimate Decreased (Normal)
[2017-03-06] MEDS ORDERED: *HR* HYDROmorphone (PF) 1 MG/ML SYRINGE IVP ONE (16:04)
[2017-03-06] MEDS ORDERED: Aspirin 81 MG TAB.CHEW PO ONE (16:56)
--- NOTE | 2017-03-06 23:07 | Internal Med History&Physical ---
Date of Encounter: 03/06/17 Time of Encounter: 21:30 Assessment and Plan (1) Elevated troponin Current visit: Yes Status: Acute Suspect this is due to recent NSTEMI. Suspect the troponin is trending down from recent NSTEMI. Will monitor the pt and continue to trend troponins. (2) CHF (congestive heart failure) Current visit: Yes Status: Chronic Review of recent admission note indicate that the pt had leg edema and there was a diagnosis of CHF with pitting edema to patella. BNP increased from 298 to 480 now. Continue her home dose of lasix at this time (will be cautious due to increase in creatinine). Consult medical unit secretary for further advice. Of note - pt seem to be on amlodipine, which can cause leg edema. Day team to discuss with medical unit secretary to if the edema is related to amlodipine / try holding amlodipine. Qualifiers: Congestive heart failure type: unspecified congestive heart failure type Congestive heart failure chronicity: unspecified congestive heart failure chronicity Qualified Code(s): I50.9 - Heart failure, unspecified (3) Opacities of both lungs present on chest x-ray Current visit: Yes Status: Acute CXR reports low lung volumes and bilateral opacification right > left. will repeat CXR - If inconclusive, will request for CT chest (4) CAD (coronary artery disease) Current visit: Yes Status: Chronic s/p NSTEMI on 02/25/17 and LHC showed moderate three-vessel disease and patient received PCI/drug-eluting stent placement to mid RCA. Continue aspirin, clopidogrel, statin Qualifiers: Coronary Disease-Associated Artery/Lesion type: [place] artery [place] vs. transplanted heart: [place] heart Associated angina: without angina Qualified Code(s): I25.10 - Atherosclerotic heart disease of [place] coronary artery without angina pectoris (5) Leukocytosis Current visit: Yes Status: Acute Seems to be chronic. UA is negative for urinary tract infection. Current chest x-ray reports bibasilar opacification. Will need to evaluate that further Qualifiers: Leukocytosis type: unspecified Qualified Code(s): D72.829 - Elevated white blood cell count, unspecified (6) Essential hypertension Current visit: Yes Status: Chronic Stable. continue his home medications at this time. (7) Acute kidney injury Current visit: Yes Status: Acute Mild worsening of renal function (creat 1.45 -- compared to baseline of 1.18). Monitor (8) Hypokalemia Current visit: Yes Status: Acute Replenish potassium (9) LBBB (left bundle branch block) Current visit: Yes Status: Chronic (10) Physical deconditioning Current visit: Yes Status: Acute PT evaluation (11) Dizziness Current visit: Yes Status: Chronic Supportive care Internal Medicine - H&P: HPI Chief complaint: Not feeling well Admitted From: Emergency Dept Plans for Post Hospital Care: Transfer Detention Facility History of present illness: Mr. Sterling is a 81 year old male With h/o coronary artery disease s/p NSTEMI on 02/25/17 and LHC showed moderate three-vessel disease and patient received PCI/ drug-eluting stent placement to mid RCA, CHF / peripheral edema with LVEF of 60- 65%, dementia (as noted in the ER note), hyperlipidemia, hypertension, migraine , chronic dizziness. He was recently discharged to inpatient rehabilitation at [facility]. He was brought to the emergency department, for not progressing well. No family members at the bedside and the pt is not able to give significant clinical details, possibly due to his dementia. I have reviewed the notes from the ER provider. Pt is considered for admission for CHF, elevated troponin. Pt reports that I dont know. I dont feel well. He denies chest pain, shortness of breath, cough, abdominal pain, nausea or vomiting. He could not tell me about dizziness. Denies urinaly or bowel problems at this time. Otherwise he was not able to give further information. Past Med Surg Social Fam HX - Past Medical History Medical history: arthritis, coronary artery disease, dementia, hyperlipidemia, hypertension, migraine, myocardial infarction Psychiatric history: no psych history - Past Surgical History Surgical History: angioplasty/stent - Social History Smoking Status: Former smoker Smokeless Tobacco Status: Yes Alcohol use: occasionally Drug use: none - Family History Father History Unknown: Yes Adopted: No Living Status: Hx Family Cardiac Disorders: No Hx Family Respiratory Disorders: No Hx Family Cancer: No Hx Family GI Disorders: No Hx Family Endocrine Disorder: No Hx Family Neuromuscular Disorders: No Hx Family Neurologic Disorders: No Hx Family HEENT Disorders: No Hx Family Autoimmune Disorders: No Internal Medicine - H&P: Meds Aspirin 81 mg PO DAILY 02/25/17 [History] Vitamin B Complex [B Complex] 1 tab PO DAILY 02/25/17 [History] Acetaminophen [Tylenol] 650 mg PO Q6HR PRN #0 tablet 03/02/17 [Rx] Acetaminophen/Butalbital/Caffe [Fioricet] 1 each PO Q6HR PRN #30 tablet [Rx] Amlodipine [Norvasc] 10 mg PO DAILY #30 tablet 03/02/17 [Rx] Clopidogrel [Plavix] 75 mg PO DAILY #30 tablet 03/02/17 [Rx] Docusate [Colace] 100 mg PO BID PRN #0 capsule 03/02/17 [Rx] Furosemide [Lasix] 20 mg PO BID #60 tablet 03/02/17 [Rx] Lisinopril [Zestril] 40 mg PO DAILY #30 tablet 03/02/17 [Rx] Metoprolol XL (24 HR) Succ [Toprol Xl] 25 mg PO DAILY tab.er.24h 03/02/17 [Rx] Potassium Chloride Elixir [Potassium Chloride] 20 meq PO BID #30 udc 03/02/17 [ Rx] Rosuvastatin [Crestor] 20 mg PO HS tablet 03/02/17 [Rx] LORazepam [Ativan] 0.5 mg PO Q4H PRN 03/06/17 [History] Oxycodone HCl/Acetaminophen [Percocet 7.5-325 mg Tablet] 1 each PO Q6H PRN 03/06 [History] Allergies metoprolol [From Toprol XL] Adverse Reaction (Verified 03/06/17 16:20) See Comments PULSE DROPPED- AFTER HEART CATH, PULSE STAYED HIGH, PATIENT IS CURRENTLY TAKING MED WITH NO PROBLEMS All Systems PM: A 10-system review of systems is limited due to dementia - Constitutional Vitals: Temp Pulse Resp BP Pulse Ox 98.2 F 62 18 149/60 94 03/06/17 19:04 03/06/17 16:52 03/06/17 19:04 03/06/17 19:04 03/06/17 19:04 Exam: General: Not in acute distress at the time of my evaluation HEENT: Oral mucosa is moist. conjunctival palor present. No scleral icterus Neck: No obvious neck swellings Lungs: Clear to auscultation Cardiac: Regular rate and rhythm. No significant murmurs Abdomen: Soft, non tender. Bowel sounds present Genitourinary: Alves catheter present Neurological: Confused. No gross localizing deficits Psych: Not aggressive or agitated Extremities: B/L leg edema present Skin: Bruising over the forearms and anterior abdominal wall present Internal Med - H&P Results - Labs CBC & Chem 7: 03/06/17 15:25 03/06/17 15:14 - EKG Data -: EKG Interpreted by Myself EKG shows normal: sinus rhythm - EKG Data EKG comments: LBBB. Unchanged from recent EKG from January 2017 03/06/17 23:09 - Impressions ITS Impressions Chest X-Ray 03/06/17 14:35 IMPRESSION: 1. Low lung volumes. 2. Cardiac silhouette appears persistently enlarged. 3. Bibasilar opacification, right greater than left. D/ / Tariq Smith MD / Tariq Smith MD Interpreting Provider: Tariq Smith MD Head CT 03/06/17 15:40 IMPRESSION: No acute intracranial abnormality. If acute cerebral infarct is a clinical concern, an MRI is a more sensitive study. Mild bilateral mastoid air cell disease. D/ / Xiao Cutler Cha, MD / Xiao Cutler Cha, MD Interpreting Provider: Xiao Cutler Cha, MD
[2017-03-06] MEDS ORDERED: Acetaminophen/Butalbital/CaffeineTABLET PO PRN (23:12)
[2017-03-06] MEDS ORDERED: Naloxone 0.4 MG/ML INJ IVP PRN (23:14)
[2017-03-07 04:57] LABS: Mean Corpuscular Volume 104.6 fL (83.0-100.0)
[2017-03-07 04:59] LABS: Hematocrit 27.3 % (37.5-50.1); Hemoglobin 8.9 g/dL (12.9-16.9); Immature Platelets 12.9 % (1.1-6.1); Lymphocytes # 1.1 K/mcL (0.6-4.6); Mean Corpuscular HGB Conc 32.6 g/dL (31.6-35.5); Mean Corpuscular Hemoglobin 34.1 pg (28.0-33.3); Mean Platelet Volume 12.2 fL (9.4-12.4); Monocytes # 0.9 K/mcL (0.0-1.3); Nucleated Red Blood Cells 0.6 /100 WBC (0); Red Blood Count 2.61 M/mcL (4.19-5.50)
[2017-03-07] MEDS: *HR* OxyCODONE/APAP 7.5/325 TABLET PO PRN ×3 (05:05→23:35)
[2017-03-07 05:15] LABS: BUN/Creatinine Ratio 34 (6-26); Blood Urea Nitrogen 42 mg/dL (8-26); Calcium 8.1 mg/dL (8.6-10.8); Carbon Dioxide 34 mEq/L (19-29); Chloride 107 mEq/L (98-109); Glucose 146 mg/dL (70-99); Magnesium 1.6 mg/dL (1.6-2.6); Osmolality,Calculated 323 (280-300); Potassium 2.9 mEq/L (3.5-4.5); Sodium 150 mEq/L (136-145); eGFR For African Americans > 60 (> 60); eGFR For Non-African Americans 57 (> 60)
[2017-03-07 05:48] LABS: Platelet Count 88 K/mcL (140-400)
[2017-03-07 05:52] LABS: Band Neutrophils % 3.6 % (0-4); Large Platelets Present (Not Present); Lymphocytes % 9.1 %; Monocytes % 7.3 %; Neutrophils # 10.2 K/mcL (1.6-8.9); Platelet Estimate Decreased (Normal)
[2017-03-07] MEDS ORDERED: Potassium Chloride 40 MEQ, Lidocaine 1% 2 ML in D5% in Water 500 ML IVPB ONE (07:34)
[2017-03-07] MEDS: Metoprolol XL (24 HR) Succ 25 MG TAB.ER.24H PO SCH (09:34)
[2017-03-07] MEDS: Vitamin B Complex/Vit C/Vit E 1 EACH TABLET PO SCH (09:34)
[2017-03-07] MEDS: Furosemide 20 MG TABLET PO SCH ×2 (09:34→15:48)
[2017-03-07] MEDS: Lisinopril 20 MG TABLET PO SCH (09:34)
[2017-03-07] MEDS: Aspirin 81 MG TAB.CHEW PO SCH (09:34)
[2017-03-07] MEDS: amLODIPine 5 MG TABLET PO SCH (09:34)
[2017-03-07] MEDS ORDERED: Piperacillin/Tazobactam 3.375 GM in D5% in Water (Mini-Bag+) 100 ML IVPB SCH (10:49)
--- NOTE | 2017-03-07 11:05 | Internal Med Progress Note ---
Date of Encounter: 03/07/17 Time of Encounter: 10:32 - Assessment and plan (1) HCAP (healthcare-associated pneumonia) Current Visit: Yes Status: Acute Assessment and plan: CXR consistent with RML opacity given persistent leukocytosis, and recent hospitalization, will treat as HCAP Will start empiric IV abx at this time (Vanco and Zosyn) Pharmacy to dose Vanco and Zosy will de-esalate therapy as per blood culture reports (2) Acute kidney injury Current Visit: Yes Status: Resolved Assessment and plan: REnal function at baseline continue to monitor (3) CAD (coronary artery disease) Current Visit: Yes Status: Chronic Assessment and plan: s/p NSTEMI and LHC with JANICE placement continue asa, plavix, and statin elevated TNI secondary to demand ischemia chest pain free at this time Qualifiers: Coronary Disease-Associated Artery/Lesion type: [place] artery [place] vs. transplanted heart: [place] heart Associated angina: without angina Qualified Code(s): I25.10 - Atherosclerotic heart disease of [place] coronary artery without angina pectoris (4) Dizziness Current Visit: Yes Status: Chronic Assessment and plan: Will obtain orthostatics f/u carotid doppler bilaterally f/u neurology consultation for chronic headache and blurry vision patient has history of chronic ear infections/sinus disease and has been evaluated by ENT last week without any acute intervention at this time. (5) CHF (congestive heart failure) Current Visit: Yes Status: Chronic Assessment and plan: responding appropriately to diuretic support continue PO diuretics adn monitor I/Os monitor daily weights fluid restriction diet Qualifiers: Congestive heart failure type: unspecified congestive heart failure type Congestive heart failure chronicity: unspecified congestive heart failure chronicity Qualified Code(s): I50.9 - Heart failure, unspecified (6) DVT prophylaxis Current Visit: No Status: Acute Assessment and plan: heparin sq (7) Elevated troponin Current Visit: Yes Status: Chronic (8) Essential hypertension Current Visit: Yes Status: Chronic Assessment and plan: BP within acceptable range continue home medications (9) Hypokalemia Current Visit: Yes Status: Acute Assessment and plan: K supplemented continue to monitor electrolytes and replace as needed (10) Anemia Current Visit: Yes Status: Acute Assessment and plan: H&H low but acceptable will obtain iron studies, ferritin, Vit B12, Folate continue to monitor H&H and transfuse as needed Qualifiers: Anemia type: unspecified type Qualified Code(s): D64.9 - Anemia, unspecified - Subjective Interval history: Patient seen and examined at bedside. Resting in bed with family present at bedside. I had a detailed discussion with the daughter about patients diagnosis and care plan. She states the patient was sent to the hospital by his primary patcher bowling ball due to worsening lower extremity edema and shortness of breath. Pt is currently saturating well on room air and reports of diffuse headache, dizziness, and blurred vision that has been progressively getting worst. Pt and daughter state that the headache has been uncontrolled despite all medications. He only got some relief with dilaudid that he received over night. - Constitutional Vitals: Temp Pulse Resp BP Pulse Ox 98 F 71 16 163/64 91 03/07/17 07:33 03/07/17 07:33 03/07/17 07:33 03/07/17 07:33 03/07/17 07:33 General appearance: Present: A&O X 3 (frail appearing elderly male), no acute distress, answers questions appropriately - Head Head exam: Present: atraumatic, normocephalic - Respiratory Respiratory exam: Absent: respiratory distress, wheezes (bibasilar crackles) - Cardiovascular Cardiovascular exam: Present: RRR, +S1, +S2 - GI/Abdominal GI/Abdominal exam: Present: normal bowel sounds, soft, no peritoneal signs. Absent: distended, tenderness - Extremities Exam Extremities exam: Present: pedal edema (1+ pitting edema bilateal lower extremities ), warm, radial pulses palpable and symetrical. Absent: calf tenderness - Neurological Exam Neurological exam: Present: alert, oriented X3 - Psychiatric Psychiatric exam: Present: normal affect, normal mood Internal Medicine: Result - Labs CBC & Chem 7: 03/07/17 03:23 03/07/17 03:23 Labs: Short CBC 03/07/17 Range/Units 03:23 WBC 12.2 H (4.3-11.1) K/mcL Hgb 8.9 L (12.9-16.9) g/dL Hct 27.3 L (37.5-50.1) % Plt Count 88 L (140-400) K/mcL Neutrophils # 10.2 H (1.6-8.9) K/mcL BMP 03/07/17 03:23 Sodium 150 H Potassium 2.9 L Chloride 107 Carbon Dioxide 34 H BUN 42 H Creatinine 1.22 Glucose 146 H Calcium 8.1 L - ABG Interpretation ABG results: PT/INR, D-dimer PT 11.7 Seconds (9.4-12.1) 03/06/17 15:14 - Impressions Impressions Chest X-Ray 03/07/17 08:00 IMPRESSION: Persistent opacity right lung base likely reflecting airspace disease in the right middle lobe similar to prior exam. This was evident on more remote radiograph from 02/28/2017. D/ / 03/07/2017 09:28:48 Yang Mai MD / mariah Interpreting Provider: Yang Mai MD Consult Discharge Plan - Plan
--- NOTE | 2017-03-07 12:08 | Neurology - Consult Note ---
Date of Encounter: 03/07/17 Time of Encounter: 12:37 Assessment and Plan (1) Headache Current Visit: Yes Status: Acute Need to exclude Temporal Arteritis. ESR, CRP for evaluation. Consider klonopin 0.5 mg at night for headaches (and also for insomnia, see below). Qualifiers: Headache chronicity pattern: unspecified pattern Intractability: intractable Qualified Code(s): R51 - Headache (2) Dementia Current Visit: Yes Status: Chronic Likely multifactorial. 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 Will consider sinemet trial. Will need outpatient evaluation for follow-up. Will need outpatient EVELIO-Scan, Neuropsychology testing, MRI brain and EEG for completeness. B12, MMA, folate have been ordered already. Qualifiers: Dementia type: Parkinson's disease Qualified Code(s): G20 - Parkinson's disease; F02.80 - Dementia in other diseases classified elsewhere without behavioral disturbance (3) Acute CHF (congestive heart failure) Current Visit: Yes Status: Acute In the setting of CHF and [place] descent (and multiple family members involved), outpatient evaluation for transthyretin amyloidosis, including cardiac MRI may be performed Qualifiers: Congestive heart failure type: diastolic Qualified Code(s): I50.31 - Acute diastolic (congestive) heart failure (4) Insomnia Current Visit: Yes Status: Chronic Consider Clonazepam 0.5mg at night. Qualifiers: Qualified Code(s): G47.00 - Insomnia, unspecified History of Present Illness Chief complaint: Headache, Slowness of movements, Dementia HPI: Mr. Sterling is a 81 year old man with prior history of Congestive heart failure, hypertension, with complaints of severe headache (06/11). Per daughter, he has been having these headaches in the last few weeks. Over the last 6 months or so , he has been getting slower, his handwriting not so very legible and his voice "petering out" at times. No eyelid droop, no double vision reported. He has been having falls recently as well. The daughter states that he is not a complainer and that he does not fully state all his problems. He apparently has no problems with bowel or bladder issues. No breathing issues usually, although he is suspected to have a pneumonia in this admission. No fevers, no chills. The daughter has recently noticed that the patient has tremors (left > right). 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 - Family History Father History Unknown: Yes Adopted: No Living Status: Hx Family Cardiac Disorders: No Hx Family Respiratory Disorders: No Hx Family Cancer: No Hx Family GI Disorders: No Hx Family Endocrine Disorder: No Hx Family Neuromuscular Disorders: No Hx Family Neurologic Disorders: No Hx Family HEENT Disorders: No Hx Family Autoimmune Disorders: No - Additional Family History Additional family history: Multiple family members with Congestive Heart Failure /cardiac issues. Multiple other family members with Parkinson's disease (His brother has Parkinson's disease as well). Arabic descent. Medications and Allergies Aspirin 81 mg PO DAILY 02/25/17 [History] Vitamin B Complex [B Complex] 1 tab PO DAILY 02/25/17 [History] Acetaminophen [Tylenol] 650 mg PO Q6HR PRN #0 tablet 03/02/17 [Rx] Acetaminophen/Butalbital/Caffe [Fioricet] 1 each PO Q6HR PRN #30 tablet [Rx] Amlodipine [Norvasc] 10 mg PO DAILY #30 tablet 03/02/17 [Rx] Clopidogrel [Plavix] 75 mg PO DAILY #30 tablet 03/02/17 [Rx] Docusate [Colace] 100 mg PO BID PRN #0 capsule 03/02/17 [Rx] Furosemide [Lasix] 20 mg PO BID #60 tablet 03/02/17 [Rx] Lisinopril [Zestril] 40 mg PO DAILY #30 tablet 03/02/17 [Rx] Metoprolol XL (24 HR) Succ [Toprol Xl] 25 mg PO DAILY tab.er.24h 03/02/17 [Rx] Potassium Chloride Elixir [Potassium Chloride] 20 meq PO BID #30 udc 03/02/17 [ Rx] Rosuvastatin [Crestor] 20 mg PO HS tablet 03/02/17 [Rx] LORazepam [Ativan] 0.5 mg PO Q4H PRN 03/06/17 [History] Oxycodone HCl/Acetaminophen [Percocet 7.5-325 mg Tablet] 1 each PO Q6H PRN 03/06 [History] Allergies metoprolol [From Toprol XL] Adverse Reaction (Verified 03/06/17 16:20) See Comments PULSE DROPPED- AFTER HEART CATH, PULSE STAYED HIGH, PATIENT IS CURRENTLY TAKING MED WITH NO PROBLEMS All Systems: A 10-system review of systems was performed and is negative for pertinent findings except as documented above in the HPI. - Constitutional Constitutional ROS IM: as per HPI, daytime sleepiness, fatigue, frequent falls, headache(s), other (slowness of movements noted by family members) Physical Examination - Vital Signs Vital Signs: Initial Vital Signs Temp Pulse Resp BP Pulse Ox 97.9 F 73 18 165/77 98 03/06/17 14:36 03/06/17 14:36 03/06/17 14:36 03/06/17 14:36 03/06/17 14:36 - Neurologic Sensorimotor examination: other (Severe bradykinesia, facial hypomimia, no obvious tremors, micrographia, short shuffling gait. However, no significant rigidity in his lower extremities.) Detailed motor examination: full strength in all major muscle groups Motor examination - right side: 5/5: deltoids, biceps, triceps, wrist flexion, wrist extension, public affairs director, hip flexors, tibialis Anterior, quadriceps, toe extension (EHL), plantarflexion Motor examination - left side: 5/5: deltoids, biceps, triceps, wrist flexion, wrist extension, hip flexors, public affairs director, quadriceps, tibialis Anterior, toe extension (EHL), plantarflexion Detailed sensory examination: light touch (decreased distally), vibration ( decreased distally), position sense (decreased distally) Reflexes: Biceps: 1+, Triceps: 1+, Brachioradialis: 1+, Patella: 1+, Achilles: 1 + Mental Status Examination: awake, alert, oriented to person, oriented to place, follows commands appropriately, no agnosia, no aphasia, no aproxia, follows simple commands, glabellar sign present Cranial nerve examination: PERRL, EOMI, no dysarthria, soft palate elevates bilaterally upon phonation, flexes SCM and trapezius muscles symmetrically with full power, tongue protrudes midline, no atrophy or facial fasiculations present Cerebellar examination: no dysmetria Tremor: left upper extremity (reported; not seen on today's examination) Results - Laboratory Findings CBC and BMP: 03/07/17 03:23 03/07/17 03:23 Abnormal lab findings: Abnormal lab results WBC 12.2 K/mcL (4.3-11.1) H 03/07/17 03:23 RBC 2.61 M/mcL (4.19-5.50) L 03/07/17 03:23 Hgb 8.9 g/dL (12.9-16.9) L 03/07/17 03:23 Hct 27.3 % (37.5-50.1) L 03/07/17 03:23 MCV 104.6 fL (83.0-100.0) H 03/07/17 03:23 MCH 34.1 pg (28.0-33.3) H 03/07/17 03:23 RDW 20.0 % (11.5-14.5) H 03/07/17 03:23 Plt Count 88 K/mcL (140-400) L 03/07/17 03:23 Metamyelocytes % 1.0 % (0) H 03/06/17 15:25 Myelocytes % 1.0 % (0) H 03/06/17 15:25 Neutrophils # 10.2 K/mcL (1.6-8.9) H 03/07/17 03:23 Nucleated RBCs/100 WBC 0.6 /100 WBC (0) H 03/07/17 03:23 Platelet Estimate Decreased (Normal) L 03/07/17 03:23 Large Platelets Present (Not Present) A 03/07/17 03:23 Immature Plt Fraction 12.9 % (1.1-6.1) H 03/07/17 03:23 APTT 24.6 Seconds (26.0-36.0) L 03/06/17 15:14 VBG pH 7.50 pH Units (7.32-7.42) H 03/06/17 15:25 VBG pO2 42 mmHg (25-40) H 03/06/17 15:25 VBG HCO3 36.7 mEq/L (21-27) H 03/06/17 15:25 Sodium 150 mEq/L (136-145) H 03/07/17 03:23 Potassium 2.9 mEq/L (3.5-4.5) L 03/07/17 03:23 Carbon Dioxide 34 mEq/L (19-29) H 03/07/17 03:23 BUN 42 mg/dL (8-26) H 03/07/17 03:23 Est GFR (Non-Af Amer) 57 (> 60) L 03/07/17 03:23 BUN/Creatinine Ratio 34 (6-26) H 03/07/17 03:23 Glucose 146 mg/dL (70-99) H 03/07/17 03:23 Calculated Osmolality 323 (280-300) H 03/07/17 03:23 Calcium 8.1 mg/dL (8.6-10.8) L 03/07/17 03:23 Troponin I 0.19 ng/mL (0-0.03) H* 03/06/17 15:14 B-Natriuretic Peptide 348 pg/mL (0-100) H 03/07/17 03:23 Urine Protein 100 mg/dL (Neg-Trace) H 03/06/17 14:55 Urine Blood Moderate (Negative) H 03/06/17 14:55 Urine Microscopic RBC 3-5 per hpf (0-3) H 03/06/17 14:55 Urine Microscopic WBC 3-5 per hpf (0-3) H 03/06/17 14:55 Ur Squamous Epith Cells Many per lpf (None-Few) H 03/06/17 14:55 Consult Discharge Plan - Plan Referrals: Arie Willis DO [Primary Care Provider] -
[2017-03-07] MEDS ORDERED: clonazePAM 0.5 MG TABLET PO PRN (13:58)
[2017-03-07] MEDS: Vancomycin 1,000 MG in D5% in Water 250 ML IVPB SCH (14:26)
[2017-03-07] MEDS: *HR* LORazepam 0.5 MG TABLET PO PRN (17:15)
[2017-03-07] MEDS: *HR* Heparin 5,000 UNIT/ML VIAL SQ SCH (17:55)
[2017-03-07] MEDS: Potassium Chloride Elixir 20 MEQ/15 ML UDC PO SCH (23:13)
[2017-03-07] MEDS: Piperacillin/Tazobactam 3.375 GM in D5% in Water (Mini-Bag+) 100 ML IVPB SCH (23:14)
[2017-03-08 05:11] LABS: Nucleated Red Blood Cells 0.6 /100 WBC (0)
[2017-03-08 05:13] LABS: Hematocrit 24.5 % (37.5-50.1); Hemoglobin 8.2 g/dL (12.9-16.9); Immature Platelets 10.6 % (1.1-6.1); Mean Corpuscular HGB Conc 33.5 g/dL (31.6-35.5); Mean Corpuscular Hemoglobin 35.2 pg (28.0-33.3); Mean Corpuscular Volume 105.2 fL (83.0-100.0); Mean Platelet Volume 12.1 fL (9.4-12.4); Red Blood Count 2.33 M/mcL (4.19-5.50); Red Cell Distribution Width 19.7 % (11.5-14.5)
[2017-03-08 05:23] LABS: Calcium 7.9 mg/dL (8.6-10.8); Magnesium 1.6 mg/dL (1.6-2.6); Phosphorous 2.7 mg/dL (2.3-4.7); Potassium 3.1 mEq/L (3.5-4.5)
[2017-03-08 05:35] LABS: Platelet Count 73 K/mcL (140-400)
[2017-03-08 05:37] LABS: Lymphocytes # 1.7 K/mcL (0.6-4.6); Monocytes # 0.6 K/mcL (0.0-1.3)
[2017-03-08 05:38] LABS: Anisocytosis 2+ (Not Present); Platelet Estimate Decreased (Normal)
[2017-03-08 05:57] LABS: Folate 14.8 ng/mL (7.0-31.4)
[2017-03-08] MEDS: Piperacillin/Tazobactam 3.375 GM in D5% in Water (Mini-Bag+) 100 ML IVPB SCH ×3 (06:19→23:19)
[2017-03-08] MEDS: *HR* Heparin 5,000 UNIT/ML VIAL SQ SCH ×2 (06:20→17:28)
[2017-03-08] MEDS: Potassium Chloride Elixir 20 MEQ/15 ML UDC PO SCH ×2 (08:49→20:03)
[2017-03-08] MEDS: Furosemide 20 MG TABLET PO SCH ×2 (08:49→18:26)
[2017-03-08] MEDS: Aspirin 81 MG TAB.CHEW PO SCH (08:49)
[2017-03-08] MEDS: amLODIPine 5 MG TABLET PO SCH (08:50)
[2017-03-08] MEDS: Metoprolol XL (24 HR) Succ 25 MG TAB.ER.24H PO SCH (08:50)
[2017-03-08] MEDS: Vitamin B Complex/Vit C/Vit E 1 EACH TABLET PO SCH (08:50)
[2017-03-08] MEDS: Lisinopril 20 MG TABLET PO SCH (08:50)
--- NOTE | 2017-03-08 11:30 | Internal Med Progress Note ---
Date of Encounter: 03/08/17 Time of Encounter: 11:26 - Assessment and plan (1) CVA (cerebral vascular accident) Current Visit: Yes Status: Acute Assessment and plan: MRI brain reports Small acute/early subacute infarction in the right occipital lobe. Smaller punctuate infarction in the left cerebellum. Bilaterally raises the possibility for thromboembolic phenomenon from a central source. 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 (3) Dizziness Current Visit: Yes Status: Chronic Assessment and plan: Will obtain orthostatics f/u carotid doppler bilaterally f/u neurology consultation for chronic headache and blurry vision patient has history of chronic ear infections/sinus disease and has been evaluated by ENT last week without any acute intervention at this time. (4) HCAP (healthcare-associated pneumonia) Current Visit: Yes Status: Acute Assessment and plan: CXR consistent with RML opacity given persistent leukocytosis, and recent hospitalization, will treat as HCAP Continue empiric IV abx at this time (Vanco and Zosyn) Pharmacy to dose Vanco and Zosy will de-esalate therapy as per blood culture reports (5) Acute kidney injury Current Visit: Yes Status: Resolved Assessment and plan: REnal function at baseline Slightly worsened from previous day due to diuretic therapy will closely monitor (6) CAD (coronary artery disease) Current Visit: Yes Status: Chronic Assessment and plan: s/p NSTEMI and LHC with JANICE placement continue asa, plavix, and statin elevated TNI secondary to demand ischemia chest pain free at this time Qualifiers: Coronary Disease-Associated Artery/Lesion type: [place] artery [place] vs. transplanted heart: [place] heart Associated angina: without angina Qualified Code(s): I25.10 - Atherosclerotic heart disease of [place] coronary artery without angina pectoris (7) CHF (congestive heart failure) Current Visit: Yes Status: Chronic Assessment and plan: responding appropriately to diuretic support continue PO diuretics and monitor I/Os monitor daily weights fluid restriction diet Qualifiers: Congestive heart failure type: unspecified congestive heart failure type Congestive heart failure chronicity: unspecified congestive heart failure chronicity Qualified Code(s): I50.9 - Heart failure, unspecified (8) DVT prophylaxis Current Visit: No Status: Acute Assessment and plan: heparin sq (9) Elevated troponin Current Visit: Yes Status: Chronic (10) Essential hypertension Current Visit: Yes Status: Chronic Assessment and plan: BP within acceptable range continue home medications (11) Hypokalemia Current Visit: Yes Status: Acute Assessment and plan: K supplemented continue to monitor electrolytes and replace as needed (12) Anemia Current Visit: Yes Status: Acute Assessment and plan: H&H low but acceptable Iron studies and Vit B12, Folate all WNL will obtain occult stool continue to monitor H&H and transfuse as needed Qualifiers: Anemia type: unspecified type Qualified Code(s): D64.9 - Anemia, unspecified - Subjective Interval history: Patient seen and examined at bedside. Resting in chair and daughter present at bedside. Pt's MRI consistent with bilateral CVA in the right occipital lobe, and left cerebellum. MRI report reviewed with the family and neurologist. Family willing to start patient on anticoagulation, however given current H&H, will obtain occult stool to r/o GI bleed. Pt's daughter also reported that as per her father's wishes he does not want to be resuscitated if he were to have a cardiac arrest and his living will is on file. As per patient's wishes, his code status is changed to DNR/DNI. Palliative care was brought up to the patient and family, and they are interested in knowing what their options are so the patient is not in any pain. palliative care consultation requested to establish detailed goals of care. - Constitutional Vitals: Temp Pulse Resp BP Pulse Ox 97.8 F 53 16 143/58 92 03/08/17 10:33 03/08/17 10:33 03/08/17 10:33 03/08/17 10:33 03/08/17 10:33 General appearance: Present: A&O X 3 (frail appearing elderly male), no acute distress, answers questions appropriately - Head Head exam: Present: atraumatic, normocephalic - Eye Eye exam: Present: normal appearance, conjuntiva pink, sclera anicteric - Respiratory Respiratory exam: Present: decreased breath sounds. Absent: respiratory distress, wheezes - Cardiovascular Cardiovascular exam: Present: RRR, +S1, +S2. Absent: diastolic murmur, gallop, rubs, systolic murmur - GI/Abdominal GI/Abdominal exam: Present: normal bowel sounds, soft, no peritoneal signs. Absent: distended, tenderness - Extremities Exam Extremities exam: Present: pedal edema, warm, radial pulses palpable and symetrical. Absent: calf tenderness - Neurological Exam Neurological exam: Present: alert, oriented X3 Internal Medicine: Result - Labs CBC & Chem 7: 03/08/17 04:54 03/08/17 04:54 Labs: Short CBC 03/08/17 Range/Units 04:54 WBC 10.3 (4.3-11.1) K/mcL Hgb 8.2 L (12.9-16.9) g/dL Hct 24.5 L (37.5-50.1) % Plt Count 73 L (140-400) K/mcL Neutrophils # 8.0 (1.6-8.9) K/mcL BMP 03/08/17 04:54 Sodium 146 H Potassium 3.1 L Chloride 106 Carbon Dioxide 31 H BUN 42 H Creatinine 1.57 H Glucose 165 H Calcium 7.9 L - ABG Interpretation ABG results: PT/INR, D-dimer PT 11.7 Seconds (9.4-12.1) 03/06/17 15:14 - Impressions Impressions Brain MRI 03/07/17 13:57 IMPRESSION: 1. Motion degraded examination. 2. Small acute/early subacute infarction in the right occipital lobe. Smaller punctate infarction in the left cerebellum. Bilaterally raises the possibility for thromboembolic phenomenon from a central source. No associated hemorrhage. 3. Diffuse age-related parenchymal volume loss and sequela of chronic microvascular ischemic changes. 4. Fluid in the mastoid air cells may be congestive or infectious/inflammatory. Clinical correlation recommended. The findings were sent to the [facility]iology [facility] at 7:05 pm on 03/07/2017to be communicated to a licensed caregiver. D/ / 03/07/2017 19:08:43 Jose Alexander MD / mariah Interpreting Provider: Jose Alexander MD Consult Discharge Plan - Plan Referrals: Arie Willis DO [Primary Care Provider] -
--- NOTE | 2017-03-08 12:06 | Neurology Progress Note ---
Date of Encounter: 03/08/17 Time of Encounter: 12:03 Assessment and Plan (1) Headache Current Visit: Yes Status: Acute likely secondary to recent CVA. Klonopin is helping with pain and is providing sleep as well. Qualifiers: Headache chronicity pattern: unspecified pattern Intractability: intractable Qualified Code(s): R51 - Headache (2) Dementia Current Visit: Yes Status: Chronic likely due to cumulative factors, multiinfarct dementia cannot be excluded. Will keep the outpatient Neurology appointment. Qualifiers: Dementia type: Parkinson's disease Qualified Code(s): G20 - Parkinson's disease; F02.80 - Dementia in other diseases classified elsewhere without behavioral disturbance (3) Acute CHF (congestive heart failure) Current Visit: Yes Status: Acute Qualifiers: Congestive heart failure type: diastolic Qualified Code(s): I50.31 - Acute diastolic (congestive) heart failure (4) Insomnia Current Visit: Yes Status: Chronic doing better on klonopin. Will continue current dose at 0.5mg at night, and 0.25mg at noon. Qualifiers: Qualified Code(s): G47.00 - Insomnia, unspecified (5) PAF (paroxysmal atrial fibrillation) Current Visit: No Status: Chronic Bilateral strokes likely secondary to PAF. See discussion in HPI above. Taken together with multiple other comorbidities in place, the risks of treating PAF with anticoagulant are high. Family apprised of pros and cons of aggressive treatment and they will decide which way they want to go. The admitting physician is in agreement as well. (6) CVA (cerebral vascular accident) Current Visit: Yes Status: Acute see discussion above, as for PAF. Qualifiers: CVA mechanism: unspecified Qualified Code(s): I63.9 - Cerebral infarction, unspecified Subjective Principal diagnosis: Stroke, subacute Interval history: The patient is seen in follow-up today. Additional studies and results are back. Brain MRI revealed 2 obvious punctate/small volume strokes, one in the left cerebellum and one in the right parietal/occipital lobe. In the setting of bilateral strokes, this suggests a cardiac etiology. Incidental observation of prior documented Afib during Echo is noted. He is probably having paroxysmal Afib, leading to strokes, and is likely he has been accumulating stroke burden (lacunar or sub-lacunar) in the last few months/years. Klonopin was given yesterday and patient slept well, and he did not have much head pain. Overall, he has been stable. Objective - Constitutional Vitals: Temp Pulse Resp BP Pulse Ox 97.8 F 53 16 143/58 92 03/08/17 10:33 03/08/17 10:33 03/08/17 10:33 03/08/17 10:33 03/08/17 10:33 General appearance: Present: A&O X 2, answers questions appropriately (simple questions and simple arithmetic - he does ok.) - Head Head exam: Present: atraumatic, normocephalic - Eye Eye exam: Present: PERRL, conjuntiva pink, sclera anicteric Pupils: Present: PERRL. Absent: fixed - Extremities Exam Extremities exam: Present: normal inspection (no focal weakness, but has bradycardia, as noted before) - Neurological Exam Motor Examination: Present: full strength in all major muscle groups Motor examination - left side: 5/5: deltoids, biceps, triceps, wrist flexion, wrist extension, hip flexors, temperer, quadriceps, tibialis Anterior, toe extension (EHL), plantarflexion Sensation intact: Present: light touch (decreased distally), vibration ( decreased distally), position sense (decreased distally) Mental Status Examination: Present: awake, alert, oriented to person, oriented to place, follows commands appropriately, no agnosia, no aphasia, no aproxia, follows simple commands, glabellar sign present Cranial nerve examination: Present: PERRL, EOMI, no dysarthria, soft palate elevates bilaterally upon phonation, flexes SCM and trapezius muscles symmetrically with full power, tongue protrudes midline, no atrophy or facial fasiculations present Cerebellar examination: Present: no dysmetria (clumsy on the left with fine finger movements) Tremor: left upper extremity (reported; not seen on today's examination) Results - Laboratory Findings CBC and BMP: 03/08/17 04:54 03/08/17 04:54 Abnormal lab findings: Abnormal lab results RBC 2.33 M/mcL (4.19-5.50) L 03/08/17 04:54 Hgb 8.2 g/dL (12.9-16.9) L 03/08/17 04:54 Hct 24.5 % (37.5-50.1) L 03/08/17 04:54 MCV 105.2 fL (83.0-100.0) H 03/08/17 04:54 MCH 35.2 pg (28.0-33.3) H 03/08/17 04:54 RDW 19.7 % (11.5-14.5) H 03/08/17 04:54 Plt Count 73 K/mcL (140-400) L 03/08/17 04:54 Metamyelocytes % 1.0 % (0) H 03/06/17 15:25 Myelocytes % 1.0 % (0) H 03/06/17 15:25 Nucleated RBCs/100 WBC 0.6 /100 WBC (0) H 03/08/17 04:54 Platelet Estimate Decreased (Normal) L 03/08/17 04:54 Large Platelets Present (Not Present) A 03/07/17 03:23 Immature Plt Fraction 10.6 % (1.1-6.1) H 03/08/17 04:54 Anisocytosis 2+ (Not Present) A 03/08/17 04:54 APTT 24.6 Seconds (26.0-36.0) L 03/06/17 15:14 VBG pH 7.50 pH Units (7.32-7.42) H 03/06/17 15:25 VBG pO2 42 mmHg (25-40) H 03/06/17 15:25 VBG HCO3 36.7 mEq/L (21-27) H 03/06/17 15:25 Sodium 146 mEq/L (136-145) H 03/08/17 04:54 Potassium 3.1 mEq/L (3.5-4.5) L 03/08/17 04:54 Carbon Dioxide 31 mEq/L (19-29) H 03/08/17 04:54 BUN 42 mg/dL (8-26) H 03/08/17 04:54 Creatinine 1.57 mg/dL (0.72-1.25) H 03/08/17 04:54 Est GFR ( Amer) 52 (> 60) L 03/08/17 04:54 Est GFR (Non-Af Amer) 43 (> 60) L 03/08/17 04:54 BUN/Creatinine Ratio 27 (6-26) H 03/08/17 04:54 Glucose 165 mg/dL (70-99) H 03/08/17 04:54 Calculated Osmolality 316 (280-300) H 03/08/17 04:54 Calcium 7.9 mg/dL (8.6-10.8) L 03/08/17 04:54 % Saturation 56 % (20-55) H 03/08/17 04:54 Transferrin 158 mg/dL (174-364) L 03/08/17 04:54 Ferritin 510 ng/ml (22-275) H 03/08/17 04:54 Troponin I 0.19 ng/mL (0-0.03) H* 03/06/17 15:14 B-Natriuretic Peptide 348 pg/mL (0-100) H 03/07/17 03:23 Vitamin B12 1066 pg/mL (213-816) H 03/08/17 04:54 Urine Protein 100 mg/dL (Neg-Trace) H 03/06/17 14:55 Urine Blood Moderate (Negative) H 03/06/17 14:55 Urine Microscopic RBC 3-5 per hpf (0-3) H 03/06/17 14:55 Urine Microscopic WBC 3-5 per hpf (0-3) H 03/06/17 14:55 Ur Squamous Epith Cells Many per lpf (None-Few) H 03/06/17 14:55 Consult Discharge Plan - Plan Referrals: Arie Willis DO [Primary Care Provider] -
[2017-03-08] MEDS: Vancomycin 1,000 MG in D5% in Water 250 ML IVPB SCH (12:29)
--- NOTE | 2017-03-08 12:39 | Carotid Imaging Report ---
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 Findings Carotid Duplex: Right: There is nonstenotic plaque in the right bifurcation. There is smooth heterogeneous plaque. Left: There is nonstenotic plaque in the left bifurcation. There is smooth heterogeneous plaque. Prior Study: No prior study available for comparison. Carotid Results Right PSV EDV Assessment Proximal CCA 98 8 Normal Mid CCA 94 10 Normal Distal CCA 76 8 Normal Bifurcation 82 17 Non Stenotic Plaque Proximal ICA 65 10 Normal Mid ICA 77 16 Normal Distal ICA 67 12 Normal ECA 119 8 Normal Vertebral Artery 54 9 Antegrade Flow Left PSV EDV Assessment Proximal CCA 108 12 Normal Mid CCA 87 12 Normal Distal CCA 78 8 Normal Bifurcation 84 11 Non Stenotic Plaque Proximal ICA 95 14 Normal Mid ICA 62 12 Normal Distal ICA 59 13 Normal ECA 110 9 Normal Vertebral Artery 39 11 Antegrade Flow Ratio's Right ICA/CCA Ratio: 0.81 ICA/CCA Values: 77/94 Left ICA/CCA Ratio: 1.09 ICA/CCA Values: 95/87 Updated by Ry Adams MD on 03/08/2017 12:34:14 PM electronically signed on 03/08/2017 12:34:25 PM with status of Final
[2017-03-08] MEDS: *HR* LORazepam 0.5 MG TABLET PO PRN ×2 (12:50→23:20)
--- NOTE | 2017-03-08 12:56 | Palliative - Consult Note ---
Date of Encounter: 03/08/17 Time of Encounter: 12:54 - Assessment and Plan (1) Headache Current Visit: Yes Status: Acute Assessment and plan: Fiorcet or percocet as needed for headache or generalized pain. Patient appears to tolerate clonazepam for agitation due to headache. Will change clonazepam to BID dosing (12 noon and at HS). Discussed with family and Dr. Carr. Qualifiers: Headache chronicity pattern: unspecified pattern Intractability: intractable Qualified Code(s): R51 - Headache (2) Goals of care, counseling/discussion Current Visit: Yes Status: Acute Assessment and plan: Discussed terminal carman goals of care with the patient's daughter-Sheree and grandchild-Ju (Both POAs). Discussed hospital course, plan for discharge and [facility]p goals. Family would like to pursue aggressive rehab at [place] as the patient tolerates. They are aware of increased caregiver burden of transition home along with the safety risks. Family has alternative plans to place patient in nursing facility for rehab vs. terminal carman care if he remains unsafe for placement in the home. Mr. Sterling' spouse is elderly and debilitated herself and is not able to serve as a hands-on care provider. Briefly discussed end of life planning as Mr. Sterling has expressed his wishes to his family prior to the hospitalization. Code status confirmed. Mr. Sterling is not eligible for hospice services at this time. The palliative care team will continue to follow. special services agent consult to assist with placement and answer questions regarding mcfp care. Discussed case with Dr. Carr. (3) HCAP (healthcare-associated pneumonia) Current Visit: Yes Status: Acute Assessment and plan: Management per hospitalist (4) CVA (cerebral vascular accident) Current Visit: Yes Status: Acute Assessment and plan: Neurology following. Family has declined mcfp ATC with warfarin due to risks. Qualifiers: CVA mechanism: unspecified Qualified Code(s): I63.9 - Cerebral infarction, unspecified (5) Urinary frequency Current Visit: Yes Status: Acute Assessment and plan: Patient becoming increasingly agitated and requesting to urinate every 15- 30min. Will add Flomax and continue to monitor. Palliative-CN HPI - Data of Consult Patient: new to practice Consult date: 03/08/17 Requesting Physician: Amber Carr MD Primary Care Provider: Arie Willis - Consult Narrative Palliative Care/Comfort Measures: Palliative care Reason for consult: Goals of care History of present illness: Mr. Sterling is a 81 year old male patient with a recent hospitalization in January 2017 for a NSTEMI and placement of drug-eluting stent. His hospital course was complicated with an episode of epistaxis requiring an ENT consultation. Epistaxis was felt to be related to anticoagulation with heparin drip. He was discharged to acute inpatient rehabilitation at [facility] on 03/02. He was compliant with follow-up visits with ENT and cardiology. Family was transporting patient to cardiology follow-up appointment on 03/06/2017 when his daughter noticed weakness that progressed hour to hour. Mr. Sterling was transported to [facility] for further workup and evaluation. Findings were consistent with CHF and HCAP. A brain MRI was completed due to complaints of dizziness, confusion, headache. Mr. Sterling was found to have bilateral CVAs (right occipital, left cerebellar). Neurology was consulted. The palliative care team was consulted to assist with goals of care planning. CC: Amber Carr MD Past Med Surg Social Fam HX - Past Medical History Source: old records reviewed, obtained from family Medical history: arthritis, coronary artery disease, CVA (bilateral CVA (right occipital, left cerebellum), dementia, hyperlipidemia, hypertension, migraine, myocardial infarction Psychiatric history: no psych history - Past Surgical History Surgical History: angioplasty/stent - Social History Smoking Status: Former smoker Smokeless Tobacco Status: Yes Alcohol use: occasionally Drug use: none Current living situation: [facility] ([place] [facility]) - Family History Father History Unknown: Yes Adopted: No Living Status: Hx Family Cardiac Disorders: No Hx Family Respiratory Disorders: No Hx Family Cancer: No Hx Family GI Disorders: No Hx Family Endocrine Disorder: No Hx Family Neuromuscular Disorders: No Hx Family Neurologic Disorders: No Hx Family HEENT Disorders: No Hx Family Autoimmune Disorders: No Medications and Allergies Aspirin 81 mg PO DAILY 02/25/17 [History] Vitamin B Complex [B Complex] 1 tab PO DAILY 02/25/17 [History] Acetaminophen [Tylenol] 650 mg PO Q6HR PRN #0 tablet 03/02/17 [Rx] Acetaminophen/Butalbital/Caffe [Fioricet] 1 each PO Q6HR PRN #30 tablet [Rx] Amlodipine [Norvasc] 10 mg PO DAILY #30 tablet 03/02/17 [Rx] Clopidogrel [Plavix] 75 mg PO DAILY #30 tablet 03/02/17 [Rx] Docusate [Colace] 100 mg PO BID PRN #0 capsule 03/02/17 [Rx] Furosemide [Lasix] 20 mg PO BID #60 tablet 03/02/17 [Rx] Lisinopril [Zestril] 40 mg PO DAILY #30 tablet 03/02/17 [Rx] Metoprolol XL (24 HR) Succ [Toprol Xl] 25 mg PO DAILY tab.er.24h 03/02/17 [Rx] Potassium Chloride Elixir [Potassium Chloride] 20 meq PO BID #30 udc 03/02/17 [ Rx] Rosuvastatin [Crestor] 20 mg PO HS tablet 03/02/17 [Rx] LORazepam [Ativan] 0.5 mg PO Q4H PRN 03/06/17 [History] Oxycodone HCl/Acetaminophen [Percocet 7.5-325 mg Tablet] 1 each PO Q6H PRN 03/06 [History] Allergies metoprolol [From Toprol XL] Adverse Reaction (Verified 03/06/17 16:20) See Comments PULSE DROPPED- AFTER HEART CATH, PULSE STAYED HIGH, PATIENT IS CURRENTLY TAKING MED WITH NO PROBLEMS - Constitutional Constitutional ROS PAL: decreased appetite, fatigue, weight loss (10# over the course of a year) - EENT Eyes: change in vision (blurred vision) Ears: decreased hearing Ears, nose, mouth, throat: no change in voice, no dry mouth, no dysphagia, no hoarseness, no sore throat - Cardiovascular Cardiovascular ROS: edema, irregular heart rhythm, leg edema, pedal edema, no chest pain, no chest pain at rest, no diaphoresis - Respiratory Respiratory: no cough, no hemoptysis, no dyspnea on exertion, no wheezing - Gastrointestinal Gastrointestinal: no abdominal pain, no constipation, no diarrhea, no nausea, no vomiting - Genitourinary Genitourinary ROS male: urinary frequency, urinary urgency - Musculoskeletal Musculoskeletal ROS IM: muscle weakness (global weakness) - Integumentary Additional comments: bruising to upper extremities secondary to ATC - Neurological Neurological ROS: confusion, disequilibrium, headache(s), weakness (global) - Psychiatric Psychiatric general PM: no anxiety, no depression Palliative Care-Exam - Constitutional Vitals: Temp Pulse Resp BP Pulse Ox 97.8 F 53 16 143/58 92 03/08/17 11:55 03/08/17 11:55 03/08/17 11:55 03/08/17 11:55 03/08/17 10:33 Internal Medicine - CN: Reslt - Labs CBC & Chem 7: 03/08/17 04:54 03/08/17 04:54 Labs: Short CBC 03/08/17 Range/Units 04:54 WBC 10.3 (4.3-11.1) K/mcL Hgb 8.2 L (12.9-16.9) g/dL Hct 24.5 L (37.5-50.1) % Plt Count 73 L (140-400) K/mcL Neutrophils # 8.0 (1.6-8.9) K/mcL BMP 03/08/17 04:54 Sodium 146 H Potassium 3.1 L Chloride 106 Carbon Dioxide 31 H BUN 42 H Creatinine 1.57 H Glucose 165 H Calcium 7.9 L - ABG Interpretation ABG results: PT/INR, D-dimer PT 11.7 Seconds (9.4-12.1) 03/06/17 15:14 - Impressions Impressions Brain MRI 03/07/17 13:57 IMPRESSION: 1. Motion degraded examination. 2. Small acute/early subacute infarction in the right occipital lobe. Smaller punctate infarction in the left cerebellum. Bilaterally raises the possibility for thromboembolic phenomenon from a central source. No associated hemorrhage. 3. Diffuse age-related parenchymal volume loss and sequela of chronic microvascular ischemic changes. 4. Fluid in the mastoid air cells may be congestive or infectious/inflammatory. Clinical correlation recommended. The findings were sent to the Radiology Results Communication Center at 7:05 pm on 03/07/2017to be communicated to a licensed caregiver. D/ / 03/07/2017 19:08:43 Jose Alexander MD / [email or web address] Interpreting Provider: Jose Alexander MD Consult Discharge Plan - Plan Referrals: Arie Willis DO [Primary Care Provider] - Palliative Quality Palliative Quality: Screen for Code Status: Yes, Screen for Goals of Care: Yes, Screen for Pain: Yes, If Pain Regimen Started, Initiate Bowel Regimen: Yes, Screen for Nausea/Vomitting: Yes Code Status: 03/06/17 23:14 Resuscitation Status: Active [RES] Routine Comment: Resuscitation Status: Full Code Resuscitation Status: Active [RES] Routine Comment: Resuscitation Status: [id number]
--- NOTE | 2017-03-08 17:53 | Electrocardiograph Report ---
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
[2017-03-08] MEDS: *HR* OxyCODONE/APAP 7.5/325 TABLET PO PRN (18:26)
[2017-03-08] MEDS ORDERED: clonazePAM 0.5 MG TABLET PO PRN (18:55)
[2017-03-08] MEDS ORDERED: clonazePAM 0.5 MG TABLET PO SCH (21:00)
[2017-03-09] MEDS: Piperacillin/Tazobactam 3.375 GM in D5% in Water (Mini-Bag+) 100 ML IVPB SCH ×3 (06:18→22:14)
[2017-03-09] MEDS: *HR* Heparin 5,000 UNIT/ML VIAL SQ SCH (06:54)
[2017-03-09 08:07] LABS: Mean Corpuscular Hemoglobin 34.8 pg (28.0-33.3)
[2017-03-09 08:09] LABS: Hematocrit 25.9 % (37.5-50.1); Hemoglobin 8.6 g/dL (12.9-16.9); Immature Platelets 13.5 % (1.1-6.1); Mean Corpuscular HGB Conc 33.2 g/dL (31.6-35.5); Mean Corpuscular Volume 104.9 fL (83.0-100.0); Mean Platelet Volume 12.2 fL (9.4-12.4); Nucleated Red Blood Cells 0.6 /100 WBC (0); Red Blood Count 2.47 M/mcL (4.19-5.50); Red Cell Distribution Width 19.4 % (11.5-14.5)
[2017-03-09 08:10] LABS: Platelet Count 78 K/mcL (140-400)
[2017-03-09 08:22] LABS: Magnesium 1.5 mg/dL (1.6-2.6); Phosphorous 2.5 mg/dL (2.3-4.7); Potassium 2.6 mEq/L (3.5-4.5)
[2017-03-09 08:23] LABS: Anisocytosis 2+ (Not Present); Lymphocytes # 2.3 K/mcL (0.6-4.6); Monocytes # 0.6 K/mcL (0.0-1.3); Neutrophils # 11.3 K/mcL (1.6-8.9)
[2017-03-09 08:24] LABS: Microcytosis Present (Not Present); Platelet Estimate Decreased (Normal)
[2017-03-09] MEDS ORDERED: Magnesium Sulfate 1 GM in D5% in Water 100 ML IVPB ONE (10:00)
--- NOTE | 2017-03-09 10:15 | Internal Med Progress Note ---
Date of Encounter: 03/09/17 Time of Encounter: 09:50 - Assessment and plan (1) CVA (cerebral vascular accident) Current Visit: Yes Status: Acute Assessment and plan: MRI brain reports Small acute/early subacute infarction in the right occipital lobe. Smaller punctuate infarction in the left cerebellum. Bilaterally raises the possibility for thromboembolic phenomenon from a central source. 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 anticoagulation continue ASA, Plavix carotid dopplers: bilateral carotid system has nonstenotic plaque Repeat CT head obtained given change in mental status AMS likely secondary to medications, will closely monitor Qualifiers: CVA mechanism: unspecified Qualified Code(s): I63.9 - Cerebral infarction, unspecified (2) Goals of care, counseling/discussion Current Visit: Yes Status: Acute Assessment and plan: Palliative care consultation appreciated will continue with current management at this time and alter management as per patient and family's wishes (3) HCAP (healthcare-associated pneumonia) Current Visit: Yes Status: Acute Assessment and plan: CXR consistent with RML opacity given persistent leukocytosis, and recent hospitalization, will treat as HCAP Continue empiric IV abx at this time (Vanco and Zosyn) Pharmacy to dose Vanco and Zosy will de-esalate therapy as per blood culture reports (4) Acute kidney injury Current Visit: Yes Status: Resolved Assessment and plan: REnal function at baseline Slightly improved from previous day Likely secondary to diuretic therapy will closely monitor (5) CAD (coronary artery disease) Current Visit: Yes Status: Chronic Assessment and plan: s/p NSTEMI and LHC with JANICE placement continue asa, plavix, and statin elevated TNI secondary to demand ischemia chest pain free at this time Will obtain cardiology consultation given onset of Afib this morning Qualifiers: Coronary Disease-Associated Artery/Lesion type: [place] artery [place] vs. transplanted heart: [place] heart Associated angina: without angina Qualified Code(s): I25.10 - Atherosclerotic heart disease of [place] coronary artery without angina pectoris (6) CHF (congestive heart failure) Current Visit: Yes Status: Chronic Assessment and plan: responding appropriately to diuretic support continue PO diuretics and monitor I/Os monitor daily weights fluid restriction diet Qualifiers: Congestive heart failure type: unspecified congestive heart failure type Congestive heart failure chronicity: unspecified congestive heart failure chronicity Qualified Code(s): I50.9 - Heart failure, unspecified (7) DVT prophylaxis Current Visit: No Status: Acute Assessment and plan: heparin sq (8) Essential hypertension Current Visit: Yes Status: Chronic (9) Hypokalemia Current Visit: Yes Status: Acute Assessment and plan: K supplemented will continue to closely monitor and replace electrolytes as needed (10) Anemia Current Visit: Yes Status: Acute Assessment and plan: H&H low but acceptable Iron studies and Vit B12, Folate all WNL will obtain occult stool continue to monitor H&H and transfuse as needed Qualifiers: Anemia type: unspecified type Qualified Code(s): D64.9 - Anemia, unspecified (11) Hypomagnesemia Current Visit: Yes Status: Acute Assessment and plan: Mg supplemented continue to monitor and replace as needed - Subjective Interval history: Patient seen and examined at bedside. Patient noted to be in Afib with RVR this morning and lethargic. Noted to receive Klonipin and Percocet overnight which can be contributing to his lethargic mental status. Pt received one dose of Cardizem 10mg IV with conversion to NSR and rate control. Stat CT head was ordered to rule out any new intracranial abnormality. CT head negative for any acute hemorrhage or any acute intracranial abnormality. - Constitutional Vitals: Temp Pulse Resp BP Pulse Ox 97.5 F L 88 19 111/68 95 03/09/17 07:21 03/09/17 07:21 03/09/17 07:21 03/09/17 07:21 03/09/17 07:21 General appearance: Present: A&O X 0 (lethargic), no acute distress, answers questions appropriately - Head Head exam: Present: atraumatic, normocephalic - Eye Eye exam: Present: normal appearance, conjuntiva pink, sclera anicteric - Respiratory Respiratory exam: Absent: respiratory distress, wheezes - Cardiovascular Cardiovascular exam: Present: RRR, +S1, +S2. Absent: diastolic murmur, gallop, rubs, systolic murmur - GI/Abdominal GI/Abdominal exam: Present: normal bowel sounds, soft, no peritoneal signs. Absent: distended, tenderness - Extremities Exam Extremities exam: Present: pedal edema, warm, radial pulses palpable and symetrical. Absent: calf tenderness, tenderness Internal Medicine: Result - Labs CBC & Chem 7: 03/09/17 07:47 03/09/17 07:47 Labs: Short CBC 03/09/17 Range/Units 07:47 WBC 14.1 H (4.3-11.1) K/mcL Hgb 8.6 L (12.9-16.9) g/dL Hct 25.9 L (37.5-50.1) % Plt Count 78 L (140-400) K/mcL Neutrophils # 11.3 H (1.6-8.9) K/mcL BMP 03/09/17 07:47 Sodium 148 H Potassium 2.6 L Chloride 105 Carbon Dioxide 32 H BUN 34 H Creatinine 1.44 H Glucose 159 H Calcium 8.0 L - ABG Interpretation ABG results: PT/INR, D-dimer PT 11.7 Seconds (9.4-12.1) 03/06/17 15:14 - Impressions Impressions Brain MRI 03/07/17 13:57 IMPRESSION: 1. Motion degraded examination. 2. Small acute/early subacute infarction in the right occipital lobe. Smaller punctate infarction in the left cerebellum. Bilaterality raises the possibility for thromboembolic phenomenon from a central source. No associated hemorrhage. 3. Diffuse age-related parenchymal volume loss and sequela of chronic microvascular ischemic changes. 4. Fluid in the mastoid air cells may be congestive or infectious/inflammatory. Clinical correlation recommended. The findings were sent to the Radiology Results Communication Center at 7:05 pm on 03/07/2017to be communicated to a licensed caregiver. D/ / 03/07/2017 19:08:43 Jose Alexander MD / mariah Interpreting Provider: Jose Alexander MD Head CT 03/09/17 08:01 IMPRESSION: 1. No evidence of an acute intracranial hemorrhage. 2. No acute intracranial abnormality identified. 3. Global parenchymal volume loss with chronic microvascular ischemic change. 4. Atherosclerosis. D/ / Tariq Smith MD / Tariq Smith MD Interpreting Provider: Tariq Smith MD Consult Discharge Plan - Plan Referrals: Arie Willis DO [Primary Care Provider] - (most likely going to [facility])
[2017-03-09] MEDS: Potassium Chloride 40 MEQ, Lidocaine 1% 2 ML in D5% in Water 500 ML IVPB SCH ×2 (10:34→15:10)
[2017-03-09] MEDS: Potassium Chloride Elixir 20 MEQ/15 ML UDC PO SCH ×2 (11:08→20:02)
[2017-03-09] MEDS: Furosemide 20 MG TABLET PO SCH ×2 (11:08→17:25)
[2017-03-09] MEDS: amLODIPine 5 MG TABLET PO SCH (11:08)
[2017-03-09] MEDS: Metoprolol XL (24 HR) Succ 25 MG TAB.ER.24H PO SCH (11:08)
[2017-03-09] MEDS: Aspirin 81 MG TAB.CHEW PO SCH (11:08)
[2017-03-09] MEDS: Vitamin B Complex/Vit C/Vit E 1 EACH TABLET PO SCH (11:08)
[2017-03-09] MEDS: Lisinopril 20 MG TABLET PO SCH (12:11)
[2017-03-09] MEDS: clonazePAM 0.5 MG TABLET PO SCH ×2 (12:12→23:55)
--- NOTE | 2017-03-09 12:21 | Cardiology Consult Note ---
Date of Encounter: 03/09/17 Time of Encounter: 12:00 Assessment and Plan (1) CVA (cerebral vascular accident) Current Visit: Yes Status: Acute Per cardiology: -CT head and MRI head reviewed. -Neurology consulted. -Management per primary and neurology services. Qualifiers: CVA mechanism: unspecified Qualified Code(s): I63.9 - Cerebral infarction, unspecified (2) Atrial fibrillation Current Visit: Yes Status: Chronic Per cardiology: -KNown PAF since last admission 02/26/17. -Per review of records, Not on anticoagulation due to anemia. -[id number] score 7 (age, HTN, CHF, CVA, and vascular history). 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 Patient also with anemia and thrombocytopenia. No family at bedside to discuss anticoagulation. Explained to patient regarding increased risk of stroke with a.fib and no anticoagulation. However, would be at risk of bleeding due to anemia and thrombocytopenia and needing dual antiplatelet therapy. Will discuss with Dr.John Murray regarding appropraiteness of anticoagulation. Changes will be made accordingly. -ECG reviewed with atrial fibrillation with RVR. -Telemetry reviewed with average HR 79. -On toprol. -Will attempt to discuss anticoagulation with family when they are available. Qualifiers: Atrial fibrillation type: paroxysmal Qualified Code(s): I48.0 - Paroxysmal atrial fibrillation (3) Elevated troponin Current Visit: Yes Status: Chronic Per cardiology: -Troponin 0.19. During recent NSTEMI, troponin peak at 2.32. -Elevated in the setting of CVA, recent NSTEMI 02/26/17. -Cath 02/26/17 with JANICE to mid RCA 99% stenosis, 60%, proximal RCA, 50% mid LAD, 30% mid circumflex. -Echocardiogram 02/25/17 with LVEF 60-65%, indeterminate left ventricular diastolic function, aortoc sclerosis, mild mitral regurgitation, mild-moderate tricuspid regurgitation, midl pulmonary hypertension, all wall segments with normal motion. -Do not suspect NSTEMI this admission. Suspect elevated troponin due to demand ischemia, due to CVA. No cardiac rehab warranted at this time. (4) CAD (coronary artery disease) Current Visit: Yes Status: Chronic Per cardiology: -Recent NSTEMI. -Cath 02/26/17 as above, -On asa, statin, beta blokcer, and plavix. -Denies chest pain. Qualifiers: Coronary Disease-Associated Artery/Lesion type: [place] artery [place] vs. transplanted heart: [place] heart Associated angina: without angina Qualified Code(s): I25.10 - Atherosclerotic heart disease of [place] coronary artery without angina pectoris (5) Anemia Current Visit: Yes Status: Chronic Per cardiology: -Patient anemic with HGB 8.6. Of note, HGB last admission noted to be 11 to 9.3. -Of note, platelets 78. Last admission, platelets noted to be 130s. -Recommend close monitoring with dual anti-platelet therapy. -Management per primary service. . Qualifiers: Anemia type: unspecified type Qualified Code(s): D64.9 - Anemia, unspecified Discussion w patient/family: The assessment and plan as outlined above was discussed with the patient who expressed understanding and agreement. All questions were answered. Thank you for involving us in the care of your patient. Please call with any questions. Discussed and reviewed with Dr.John Murray. History of Present Illness Consult date: 03/09/17 Requesting physician: Ivana Hooks Consult reason: a.fib, CVA Chief complaint: headache History of present illness: Mr. Sterling is a 81 year old male with a relevant past medical history of CAD, s/ p JANICE 02/26/17, CHF, Dementia, HTN, hyperlipidemia, anemia, CKD, paroxysmal a.fib. Patient with recent admission to [facility] and underwent LHC with stenting. Patient was noted to have paroxysmal a.fib during last admission. Per review of records, Anticoagulation was not started due to anemia. Patient was at office visit with and was noted to have altered mental status and was sent to ER. Patient was admitted to [facility] and cardiology was consulted due to atrial fibrillation and CVA. Patient seen and examined, no family at bedside during examination. Patient denies current headaches, palpitations, or chest pain. Patient's complains of fatigue. Past Med Surg Social Fam HX - Past Medical History Attestation: Yes The following information was validated with the patient. Source: patient Medical history: arthritis, coronary artery disease, CVA (bilateral CVA (right occipital, left cerebellum), dementia, hyperlipidemia, hypertension, migraine, myocardial infarction Psychiatric history: no psych history - Past Surgical History Surgical History: angioplasty/stent - Social History Smoking Status: Former smoker Smokeless Tobacco Status: Yes Alcohol use: occasionally Drug use: none - Family History Father History Unknown: Yes Adopted: No Living Status: Hx Family Cardiac Disorders: No Hx Family Respiratory Disorders: No Hx Family Cancer: No Hx Family GI Disorders: No Hx Family Endocrine Disorder: No Hx Family Neuromuscular Disorders: No Hx Family Neurologic Disorders: No Hx Family HEENT Disorders: No Hx Family Autoimmune Disorders: No Medications and Allergies Aspirin 81 mg PO DAILY 02/25/17 [History] Vitamin B Complex [B Complex] 1 tab PO DAILY 02/25/17 [History] Acetaminophen [Tylenol] 650 mg PO Q6HR PRN #0 tablet 03/02/17 [Rx] Acetaminophen/Butalbital/Caffe [Fioricet] 1 each PO Q6HR PRN #30 tablet [Rx] Amlodipine [Norvasc] 10 mg PO DAILY #30 tablet 03/02/17 [Rx] Clopidogrel [Plavix] 75 mg PO DAILY #30 tablet 03/02/17 [Rx] Docusate [Colace] 100 mg PO BID PRN #0 capsule 03/02/17 [Rx] Furosemide [Lasix] 20 mg PO BID #60 tablet 03/02/17 [Rx] Lisinopril [Zestril] 40 mg PO DAILY #30 tablet 03/02/17 [Rx] Metoprolol XL (24 HR) Succ [Toprol Xl] 25 mg PO DAILY tab.er.24h 03/02/17 [Rx] Potassium Chloride Elixir [Potassium Chloride] 20 meq PO BID #30 udc 03/02/17 [ Rx] Rosuvastatin [Crestor] 20 mg PO HS tablet 03/02/17 [Rx] LORazepam [Ativan] 0.5 mg PO Q4H PRN 03/06/17 [History] Oxycodone HCl/Acetaminophen [Percocet 7.5-325 mg Tablet] 1 each PO Q6H PRN 03/06 [History] Allergies metoprolol [From Toprol XL] Adverse Reaction (Verified 03/06/17 16:20) See Comments PULSE DROPPED- AFTER HEART CATH, PULSE STAYED HIGH, PATIENT IS CURRENTLY TAKING MED WITH NO PROBLEMS All Systems Review: A 10-system review of systems was performed and is negative for pertinent findings except as documented above in the HPI. - Constitutional Constitutional: fatigue - Cardiovascular Cardiovascular: as per HPI Physical Examination Vital Signs, Last 4 Hours Temp Pulse Resp BP Pulse Ox 03/09/17 11:08 97.5 F L 70 16 163/61 91 General: Conversant, No Apparent Distress HEENT: Atraumatic, Normocephaly, Mucus Membranes Moist Neck: No JVD, Normal carotid pulses Cardiac: Reg Rate and Rhythm, Normal S1 and S2, No Murmur Lungs: Normal Breath Sounds, No Wheeze, Rales, Rhonchi Neuro: Other (Lethargic, arousable to verbal stimuli. Oriented to person and place. ) Abdomen: Soft, Non-Tender Skin: No rashes noted on visualized skin Musculoskeletal: No Chest Wall Tenderness Extremities: No Clubbing, No Cyanosis, No Edema, Normal Pulses Results 03/09/17 07:47 03/09/17 07:47 Lab Results Impressions Brain MRI 03/07/17 13:57 IMPRESSION: 1. Motion degraded examination. 2. Small acute/early subacute infarction in the right occipital lobe. Smaller punctate infarction in the left cerebellum. Bilaterality raises the possibility for thromboembolic phenomenon from a central source. No associated hemorrhage. 3. Diffuse age-related parenchymal volume loss and sequela of chronic microvascular ischemic changes. 4. Fluid in the mastoid air cells may be congestive or infectious/inflammatory. Clinical correlation recommended. The findings were sent to the Radiology Results Communication Center at 7:05 pm on 03/07/2017to be communicated to a licensed caregiver. D/ / 03/07/2017 19:08:43 Jose Alexander MD / mariah Interpreting Provider: Jose Alexander MD Head CT 03/09/17 08:01 IMPRESSION: 1. No evidence of an acute intracranial hemorrhage. 2. No acute intracranial abnormality identified. 3. Global parenchymal volume loss with chronic microvascular ischemic change. 4. Atherosclerosis. D/ / Tariq Smith MD / Tariq Smith MD Interpreting Provider: Tariq Smith MD Active Medications Acetaminophen/Butalbital/Caffeine (Fioricet) 1 each PO Q6HR PRN; Protocol PRN Reason: Headache Stop: 09/05/17 23:13 Last Admin: 03/07/17 16:18 Dose: 1 each Amlodipine Besylate (Norvasc) 10 mg PO DAILY CANDI PRN Reason: Protocol Stop: 09/06/17 09:01 Last Admin: 03/09/17 11:08 Dose: 10 mg Aspirin (Aspirin) 81 mg PO DAILY CANDI Stop: 09/06/17 09:01 Last Admin: 03/09/17 11:08 Dose: 81 mg Clonazepam (Klonopin) 0.25 mg PO DAILY CANDI Stop: 09/08/17 12:01 Last Admin: 03/09/17 12:12 Dose: Not Given Clonazepam (Klonopin) 0.5 mg PO HS PRN PRN Reason: Agitation Stop: 09/07/17 21:01 Last Admin: 03/08/17 20:03 Dose: 0.5 mg Clopidogrel Bisulfate (Plavix) 75 mg PO DAILY CANDI Stop: 09/06/17 09:01 Last Admin: 03/09/17 11:08 Dose: 75 mg Docusate Sodium (Colace) 100 mg PO BID PRN; Protocol PRN Reason: Constipation Stop: 09/05/17 23:13 Furosemide (Lasix) 20 mg PO BIDDIURETIC CANDI Stop: 09/06/17 08:01 Last Admin: 03/09/17 11:08 Dose: 20 mg Heparin Sodium (Porcine) (Heparin) 5,000 unit SQ Q12HCO CANDI Stop: 09/06/17 18:01 Last Admin: 03/09/17 06:54 Dose: Not Given Piperacillin Sod/Tazobactam (Sod 3.375 gm/ Dextrose) 100 mls @ 25 mls/hr IVPB Q8H CANDI PRN Reason: Protocol Stop: 09/06/17 22:01 Last Admin: 03/09/17 06:18 Dose: 25 mls/hr Potassium Chloride 40 meq/ (Lidocaine 2 ml/ Dextrose) 522 mls @ 130.5 mls/hr IVPB Q4H CANDI Stop: 03/09/17 17:59 Last Admin: 03/09/17 10:34 Dose: 130.5 mls/hr Vancomycin HCl 1,250 mg/ (Dextrose) 250 mls @ 166.67 mls/hr IVPB Q24H CANDI Stop: 09/08/17 12:01 Lisinopril (Zestril) 40 mg PO DAILY CANDI PRN Reason: Protocol Stop: 09/06/17 09:01 Last Admin: 03/09/17 12:11 Dose: Not Given Lorazepam (Ativan) 0.5 mg PO Q4H PRN PRN Reason: Anxiety Stop: 09/05/17 23:13 Last Admin: 03/08/17 23:20 Dose: 0.5 mg Metoprolol Succinate (Toprol Xl) 25 mg PO DAILY CANDI Stop: 09/06/17 09:01 Last Admin: 03/09/17 11:08 Dose: 25 mg Naloxone HCl (Narcan) 0.4 mg IVP Q2MIN PRN PRN Reason: Opioid Reversal Stop: 09/05/17 23:15 Oxycodone/Acetaminophen (Percocet 7.5/325) 1 each PO Q6H PRN PRN Reason: Pain Stop: 09/05/17 23:13 Last Admin: 03/08/17 18:26 Dose: 1 each Potassium Chloride (Potassium Chloride) 20 meq PO BID CANDI Stop: 09/06/17 21:01 Last Admin: 03/09/17 11:08 Dose: 20 meq Rosuvastatin Calcium (Crestor) 20 mg PO HS CANDI Stop: 09/06/17 21:01 Last Admin: 03/08/17 20:04 Dose: 20 mg Tamsulosin HCl (Flomax) 0.4 mg PO DAILY CANDI PRN Reason: Protocol Stop: 09/07/17 21:01 Last Admin: 03/09/17 11:08 Dose: 0.4 mg Vitamin B Complex/Vit C/Vit E (Stresstab) 1 each PO DAILY CANDI Stop: 09/06/17 09:01 Last Admin: 03/09/17 11:08 Dose: 1 each Laboratory Tests 03/06/17 03/09/17 03/09/17 15:14 07:47 07:47 WBC 14.1 H RBC 2.47 L Hgb 8.6 L Hct 25.9 L Plt Count 78 L Potassium 2.6 L Creatinine 1.44 H Est GFR (Non-Af Amer) 47 L Magnesium 1.5 L Troponin I 0.19 H* - Imaging and Cardiology Chest Xray: report reviewed Echo: report reviewed Cardiac cath: report reviewed Other Results: CT head, MRI head reviewed. - EKG Interpretation EKG results cardiology: personally reviewed (ECG 03/06 with SR, LBBB HR 64. ECG 03/09 with atrial fibrillation RVR, HR 127.), other (Telemetry reviewed with average HR 79, minimum HR 40, episodes of atrial fibrillation with abberancy. PVCS noted.) Consult Discharge Plan - Plan Referrals: Arie Willis DO [Primary Care Provider] - (most likely going to [facility])
[2017-03-09] MEDS: Vancomycin 1,250 MG in D5% in Water 250 ML IVPB SCH (12:59)
--- NOTE | 2017-03-09 15:54 | Palliative Progress Note ---
Date of Encounter: 03/09/17 Time of Encounter: 15:52 - Assessment and plan (1) Headache Current Visit: Yes Status: Acute Assessment and plan: Family reports he responds well to clonazepam. Noon dose of clonazepam held due to mental status/lethargy. Re-evaluate PRN. Fiorcet PRN for headaches. Neurology following. Qualifiers: Headache chronicity pattern: unspecified pattern Intractability: intractable Qualified Code(s): R51 - Headache (2) Goals of care, counseling/discussion Current Visit: Yes Status: Acute Assessment and plan: Family not available for additional goals of care discussion. Will continue to follow. (3) HCAP (healthcare-associated pneumonia) Current Visit: Yes Status: Acute Assessment and plan: per hospitalist. (4) CVA (cerebral vascular accident) Current Visit: Yes Status: Acute Assessment and plan: Neurology following. Qualifiers: CVA mechanism: unspecified Qualified Code(s): I63.9 - Cerebral infarction, unspecified (5) Urinary frequency Current Visit: Yes Status: Acute Assessment and plan: Flomax started yesterday - Time Spent With Patient Total time spent is greater than 50% in coordination of care (as documented) at patient's floor/unit and/or counseling patient: - Subjective Interval history: Overnight events noted. Patient somnolent this morning, but more alert this afternoon. Participating in some conversation when prompted. Oriented to person and place and recognizes/interacts with family members in the room. - Constitutional Vitals: Abnormal lab results WBC 14.1 K/mcL (4.3-11.1) H 03/09/17 07:47 RBC 2.47 M/mcL (4.19-5.50) L 03/09/17 07:47 Hgb 8.6 g/dL (12.9-16.9) L 03/09/17 07:47 Hct 25.9 % (37.5-50.1) L 03/09/17 07:47 MCV 104.9 fL (83.0-100.0) H 03/09/17 07:47 MCH 34.8 pg (28.0-33.3) H 03/09/17 07:47 RDW 19.4 % (11.5-14.5) H 03/09/17 07:47 Plt Count 78 K/mcL (140-400) L 03/09/17 07:47 Metamyelocytes % 1.0 % (0) H 03/06/17 15:25 Myelocytes % 1.0 % (0) H 03/06/17 15:25 Neutrophils # 11.3 K/mcL (1.6-8.9) H 03/09/17 07:47 Nucleated RBCs/100 WBC 0.6 /100 WBC (0) H 03/09/17 07:47 Platelet Estimate Decreased (Normal) L 03/09/17 07:47 Large Platelets Present (Not Present) A 03/07/17 03:23 Immature Plt Fraction 13.5 % (1.1-6.1) H 03/09/17 07:47 Anisocytosis 2+ (Not Present) A 03/09/17 07:47 Microcytosis Present (Not Present) A 03/09/17 07:47 APTT 24.6 Seconds (26.0-36.0) L 03/06/17 15:14 VBG pH 7.50 pH Units (7.32-7.42) H 03/06/17 15:25 VBG pO2 42 mmHg (25-40) H 03/06/17 15:25 VBG HCO3 36.7 mEq/L (21-27) H 03/06/17 15:25 Sodium 148 mEq/L (136-145) H 03/09/17 07:47 Potassium 2.6 mEq/L (3.5-4.5) L 03/09/17 07:47 Carbon Dioxide 32 mEq/L (19-29) H 03/09/17 07:47 BUN 34 mg/dL (8-26) H 03/09/17 07:47 Creatinine 1.44 mg/dL (0.72-1.25) H 03/09/17 07:47 Est GFR ( Amer) 57 (> 60) L 03/09/17 07:47 Est GFR (Non-Af Amer) 47 (> 60) L 03/09/17 07:47 Glucose 159 mg/dL (70-99) H 03/09/17 07:47 Calculated Osmolality 317 (280-300) H 03/09/17 07:47 Calcium 8.0 mg/dL (8.6-10.8) L 03/09/17 07:47 Magnesium 1.5 mg/dL (1.6-2.6) L 03/09/17 07:47 % Saturation 56 % (20-55) H 03/08/17 04:54 Transferrin 158 mg/dL (174-364) L 03/08/17 04:54 Ferritin 510 ng/ml (22-275) H 03/08/17 04:54 Troponin I 0.19 ng/mL (0-0.03) H* 03/06/17 15:14 B-Natriuretic Peptide 348 pg/mL (0-100) H 03/07/17 03:23 Vitamin B12 1066 pg/mL (213-816) H 03/08/17 04:54 Urine Protein 100 mg/dL (Neg-Trace) H 03/06/17 14:55 Urine Blood Moderate (Negative) H 03/06/17 14:55 Urine Microscopic RBC 3-5 per hpf (0-3) H 03/06/17 14:55 Urine Microscopic WBC 3-5 per hpf (0-3) H 03/06/17 14:55 Ur Squamous Epith Cells Many per lpf (None-Few) H 03/06/17 14:55 General appearance: Present: no acute distress Exam: 81 year old male patient appearing stated age. Follows simple commands and conversation. - Eye Eye exam: Present: EOMI, PERRL - ENT ENT exam: Present: mucous membranes dry - Respiratory Respiratory exam: Present: decreased breath sounds. Absent: rhonchi, wheezes, tachypnea - Cardiovascular Cardiovascular exam: Present: irregular rhythm, systolic murmur - GI/Abdominal GI/Abdominal exam: Present: soft. Absent: firm, hernia, tenderness - Rectal Rectal exam: Absent: black stool, bloody stool - Extremities Exam Extremities exam: Present: pedal edema (mild) Additional comments: global weakness - Neurological Exam Neurological exam: Present: alert (oriented to person and place), no focal deficits, strengths equal and symetr throughout - Psychiatric Psychiatric exam: Absent: agitated, anxious - Skin Skin exam: Present: dry, warm Palliative Quality Palliative Quality: Screen for Code Status: Yes, Screen for Goals of Care: Yes, Screen for Pain: Yes, If Pain Regimen Started, Initiate Bowel Regimen: Yes, Screen for Nausea/Vomitting: Yes Code Status: 03/06/17 23:14 Resuscitation Status: Active [RES] Routine Comment: Resuscitation Status: Full Code Resuscitation Status: Active [RES] Routine Comment: Resuscitation Status: [id number] - Labs CBC & Chem 7: 03/09/17 07:47 03/09/17 07:47 Labs: Laboratory Results - last 24 hr 03/09/17 03/09/17 03/09/17 07:47 07:47 10:46 WBC 14.1 H RBC 2.47 L Hgb 8.6 L Hct 25.9 L MCV 104.9 H MCH 34.8 H MCHC 33.2 RDW 19.4 H Plt Count 78 L MPV 12.2 Seg Neutrophils % 80.0 Lymphocytes % 16.0 Monocytes % 4.0 Neutrophils # 11.3 H Lymphocytes # 2.3 Monocytes # 0.6 Nucleated RBCs/100 WBC 0.6 H Platelet Estimate Decreased L Immature Plt Fraction 13.5 H Anisocytosis 2+ A Microcytosis Present A Sodium 148 H Potassium 2.6 L Chloride 105 Carbon Dioxide 32 H BUN 34 H Creatinine 1.44 H Est GFR ( Amer) 57 L Est GFR (Non-Af Amer) 47 L BUN/Creatinine Ratio 24 Glucose 159 H Calculated Osmolality 317 H Calcium 8.0 L Phosphorus 2.5 Magnesium 1.5 L Vancomycin Trough 11.1 - Impressions Impressions Head CT 03/09/17 08:01 IMPRESSION: 1. No evidence of an acute intracranial hemorrhage. 2. No acute intracranial abnormality identified. 3. Global parenchymal volume loss with chronic microvascular ischemic change. 4. Atherosclerosis. D/ / Tariq Smith MD / Tariq Smith MD Interpreting Provider: Tariq Smith MD - ABG Interpretation ABG results: PT/INR, D-dimer PT 11.7 Seconds (9.4-12.1) 03/06/17 15:14 Consult Discharge Plan - Plan Referrals: Arie Willis DO [Primary Care Provider] - (most likely going to [facility])
--- NOTE | 2017-03-09 16:20 | Electrocardiograph Report ---
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
--- NOTE | 2017-03-09 17:29 | Electrocardiograph Report ---
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
--- NOTE | 2017-03-09 17:32 | Electrocardiograph Report ---
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
[2017-03-09] MEDS: *HR* LORazepam 0.5 MG TABLET PO PRN (18:40)
[2017-03-09] MEDS: *HR* OxyCODONE/APAP 7.5/325 TABLET PO PRN (20:02)
[2017-03-09] MEDS ORDERED: clonazePAM 0.5 MG TABLET PO SCH (21:00)
[2017-03-10] MEDS: *HR* OxyCODONE/APAP 7.5/325 TABLET PO PRN (05:14)
[2017-03-10] MEDS: Piperacillin/Tazobactam 3.375 GM in D5% in Water (Mini-Bag+) 100 ML IVPB SCH ×3 (05:14→22:36)
[2017-03-10 05:51] LABS: Basophils % 0.1 %; Lymphocytes % 7.4 %; Nucleated Red Blood Cells 0.7 /100 WBC (0); Segmented Neutrophils % 80.1 %
[2017-03-10 05:53] LABS: Eosinophils % 0.1 %; Hematocrit 24.5 % (37.5-50.1); Hemoglobin 8.2 g/dL (12.9-16.9); Immature Granulocytes % 6.7 % (0-4); Immature Platelets 15.2 % (1.1-6.1); Lymphocytes # 1.1 K/mcL (0.6-4.6); Mean Corpuscular HGB Conc 33.5 g/dL (31.6-35.5); Mean Corpuscular Hemoglobin 34.3 pg (28.0-33.3); Mean Corpuscular Volume 102.5 fL (83.0-100.0); Mean Platelet Volume 12.8 fL (9.4-12.4); Monocytes # 0.9 K/mcL (0.0-1.3); Monocytes % 5.6 %; Red Blood Count 2.39 M/mcL (4.19-5.50)
[2017-03-10 06:03] LABS: BUN/Creatinine Ratio 20 (6-26); Blood Urea Nitrogen 25 mg/dL (8-26); Calcium 7.8 mg/dL (8.6-10.8); Carbon Dioxide 30 mEq/L (19-29); Chloride 104 mEq/L (98-109); Glucose 133 mg/dL (70-99); Magnesium 1.5 mg/dL (1.6-2.6); Osmolality,Calculated 306 (280-300); Phosphorous 2.3 mg/dL (2.3-4.7); Potassium 2.8 mEq/L (3.5-4.5); Sodium 145 mEq/L (136-145); eGFR For African Americans > 60 (> 60); eGFR For Non-African Americans 54 (> 60)
[2017-03-10 06:11] LABS: Neutrophils # 12.3 K/mcL (1.6-8.9); Platelet Count 74 K/mcL (140-400)
[2017-03-10 06:13] LABS: Platelet Estimate Marked Decrease (Normal)
[2017-03-10] MEDS: Metoprolol XL (24 HR) Succ 25 MG TAB.ER.24H PO SCH (08:02)
[2017-03-10] MEDS: Aspirin 81 MG TAB.CHEW PO SCH (08:02)
[2017-03-10] MEDS: amLODIPine 5 MG TABLET PO SCH (08:02)
[2017-03-10] MEDS: Vitamin B Complex/Vit C/Vit E 1 EACH TABLET PO SCH (08:02)
[2017-03-10] MEDS: clonazePAM 0.5 MG TABLET PO SCH ×2 (08:03→20:09)
[2017-03-10] MEDS: Furosemide 20 MG TABLET PO SCH ×2 (08:03→16:16)
[2017-03-10] MEDS: Lisinopril 20 MG TABLET PO SCH (08:03)
[2017-03-10] MEDS: Potassium Chloride Elixir 20 MEQ/15 ML UDC PO SCH ×2 (08:03→20:09)
[2017-03-10] MEDS ORDERED: Magnesium Sulfate 2 GM in D5% in Water 100 ML IVPB ONE (08:15)
--- NOTE | 2017-03-10 09:21 | Gastroenterology Consult Note ---
<Nithya Mancilla - Last Filed: 03/10/17 10:49> Date of Encounter: 03/10/17 Time of Encounter: 10:15 - Assessment and plan (1) CVA (cerebral vascular accident) Current Visit: Yes Status: Acute Assessment and plan: Dx during this hospitalization. Neurology on board. Qualifiers: CVA mechanism: unspecified Qualified Code(s): I63.9 - Cerebral infarction, unspecified (2) HCAP (healthcare-associated pneumonia) Current Visit: Yes Status: Acute Assessment and plan: Hospitalist management. (3) Anemia Current Visit: Yes Status: Chronic Assessment and plan: Acute on chronic. Patient is on PLAVIX due to recently placed cardiac stent () following NSTEMI. Baseline 9s. Continue to monitor and transfuse as appropriate. + occult blood in stool. Qualifiers: Anemia type: unspecified type Qualified Code(s): D64.9 - Anemia, unspecified (4) CAD (coronary artery disease) Current Visit: Yes Status: Chronic Assessment and plan: NSTEMI with cardiac stent placement 02/25/17 Qualifiers: Coronary Disease-Associated Artery/Lesion type: [place] artery [place] vs. transplanted heart: [place] heart Associated angina: without angina Qualified Code(s): I25.10 - Atherosclerotic heart disease of [place] coronary artery without angina pectoris (5) Thrombocytopenia Current Visit: Yes Status: Chronic Assessment and plan: Unclear etiology. Discussed with attending, will obtain CT abd to r/o cirrhosis/ liver disease. (6) Pain, abdominal, epigastric Current Visit: Yes Status: Acute Assessment and plan: w/distension, firm to palpation - r/o ascites. CT ordered for today. - Time Spent With Patient Total time spent is greater than 50% in coordination of care (as documented) at patient's floor/unit and/or counseling patient: less than 15 minutes GI History of Present Illness - Data of Consult Patient: new to practice Consult date: 03/10/17 Requesting Physician: Logan Chaudhary - Consult Narrative Reason for consult: Anemia, + occult blood History of present illness: Mr. Sterling is a 81 year old male with a PMH significant for CAD, s/p NSTEMI followed by [facility] showing moderate three-vessel disease with PCI/drug-eluting stent placement to mid RCA, CHF, peripheral edema, LVEF preserved at 60-65%, dementia, hyperlipidemia, HTN, migraine, b/l CVA and HCAP. During his recent admission 02/25/17, his hospital course was complicated with an episode of epistaxis requiring an ENT consultation. Epistaxis was felt to be related to anticoagulation with heparin drip. He was discharged to acute inpatient rehabilitation at [facility] on 03/02/2017. He was compliant with follow-up visits with ENT and cardiology. Family was transporting patient to cardiology follow-up appointment on 03/06/2017 when his daughter noticed weakness that progressed hour to hour. Mr. Sterling was transported to [facility] for further workup and evaluation. Findings were consistent with CHF and HCAP. A brain MRI was completed due to complaints of dizziness, confusion, headache. Mr. Sterling was found to have bilateral CVAs (right occipital, left cerebellar). Neurology and Cardiology were consulted for this admission starting 03/06/17. GI is consulted for worsening anemia and + occult blood in stool. Patient is currently on PLAVIX therapy for recently placed cardiac stent. Patient is a poor historian on his own behalf. No family at bedside so the majority of this information comes from attending medical staff and records. Patient denies knowledge of prior endoscopy, no black stools or blood in stools noted by the patient. He does have epigastric abd pain and abdominal distension. Colonoscopy: None noted EGD: None noted Past Med Surg Social Fam HX - Past Medical History Medical history: arthritis, coronary artery disease, CVA (bilateral CVA (right occipital, left cerebellum), dementia, hyperlipidemia, hypertension, migraine, myocardial infarction Psychiatric history: no psych history - Past Surgical History Surgical History: angioplasty/stent - Social History Smoking Status: Former smoker Smokeless Tobacco Status: Yes Alcohol use: occasionally Drug use: none - Family History Father History Unknown: Yes Adopted: No Living Status: Hx Family Cardiac Disorders: No Hx Family Respiratory Disorders: No Hx Family Cancer: No Hx Family GI Disorders: No Hx Family Endocrine Disorder: No Hx Family Neuromuscular Disorders: No Hx Family Neurologic Disorders: No Hx Family HEENT Disorders: No Hx Family Autoimmune Disorders: No - Gastrointestinal NSAID use: Unk Anticoagulation Use: Chronic PLAVIX, heparin during inpt stay Number of BM Per Day: daily Gastrointestinal: Present: abdominal pain, bloating - Constitutional Constitutional: as per HPI - EENT Eyes: as per HPI Ears: Present: as per HPI Nose, mouth and throat: Present: as per HPI - Cardiovascular Cardiovascular ROS: Present: as per HPI - Respiratory Respiratory IM: Present: as per HPI - Neurological ROS Neurological GI: Present: as per HPI - Hematologic/Lymphatic Hematologic/Lymphatic pediatric: Present: as per HPI - Musculoskeletal Musculoskeletal ROS GI: Present: as per HPI - Integumentary Integumentary GI: Present: as per HPI - Psychiatric ROS Psychiatric GI: Present: as per HPI - Endocrine Endocrine IM: Present: as per HPI - Constitutional Vitals: Temp Pulse Resp BP Pulse Ox 98 F 87 18 140/54 93 03/10/17 07:43 03/10/17 07:43 03/10/17 07:43 03/10/17 07:43 03/10/17 07:43 General appearance: Present: A&O X 2, mild distress, answers questions appropriately (simple questions and simple arithmetic - he does ok.) - Head Head exam: Present: atraumatic, normocephalic - Eye Eye exam: Present: normal appearance, sclera anicteric - ENT ENT exam: Present: mucous membranes moist - Neck Neck exam general surgery: Present: normal inspection, trachea midline - Respiratory Respiratory exam: Present: CTAB - Cardiovascular Cardiovascular exam: Present: RRR, +S1, +S2 - GI/Abdominal GI/Abdominal exam: Present: distended, firm, tenderness - Rectal Rectal exam: Present: deferred - Extremities Exam Additional comments: b/l upper extremity edema, contusions/ecchymosis - Neurological Exam Neurological exam: Present: altered - Psychiatric Psychiatric exam: Present: flat affect - Skin Skin exam: Present: dry, warm Results - Labs CBC & Chem 7: 03/10/17 05:37 03/10/17 05:37 Labs: Last Result ESR 1 mm/hr (0-10) 03/07/17 11:38 Calcium 7.8 mg/dL (8.6-10.8) L 03/10/17 05:37 Iron 123 mcg/dL (65-175) 03/08/17 04:54 % Saturation 56 % (20-55) H 03/08/17 04:54 Transferrin 158 mg/dL (174-364) L 03/08/17 04:54 Ferritin 510 ng/ml (22-275) H 03/08/17 04:54 Troponin I 0.19 ng/mL (0-0.03) H* 03/06/17 15:14 C-Reactive Protein 2 mg/L (Less than 5) 03/07/17 11:38 Vitamin B12 1066 pg/mL (213-816) H 03/08/17 04:54 Folate 14.8 ng/mL (7.0-31.4) 03/08/17 04:54 Stool Occult Blood Positive (Negative) A 03/09/17 15:40 Entire Visit Hgb 8.2 g/dL (12.9-16.9) L 03/10/17 05:37 Hct 24.5 % (37.5-50.1) L 03/10/17 05:37 PT 11.7 Seconds (9.4-12.1) 03/06/17 15:14 Ferritin 510 ng/ml (22-275) H 03/08/17 04:54 Folate 14.8 ng/mL (7.0-31.4) 03/08/17 04:54 - ABG ABG results: PT/INR, D-dimer PT 11.7 Seconds (9.4-12.1) 03/06/17 15:14 - Impressions Impressions Head CT 03/09/17 08:01 IMPRESSION: 1. No evidence of an acute intracranial hemorrhage. 2. No acute intracranial abnormality identified. 3. Global parenchymal volume loss with chronic microvascular ischemic change. 4. Atherosclerosis. D/ / Tariq Smith MD / Tariq Smith MD Interpreting Provider: Tariq Smith MD Consult Discharge Plan - Plan Referrals: Arie Willis DO [Primary Care Provider] - (most likely going to [facility]) <Oli Garza - Last Filed: 03/10/17 17:34> Date of Encounter: 03/10/17 Time of Encounter: 17:00 - Time Spent With Patient Total time spent is greater than 50% in coordination of care (as documented) at patient's floor/unit and/or counseling patient: GI History of Present Illness - Data of Consult Requesting Physician: Logan Chaudhary - Consult Narrative History of present illness: Mr. Sterling is a 81 year old male - Constitutional Vitals: Temp Pulse Resp BP Pulse Ox 98.6 F 67 18 151/60 93 03/10/17 13:01 03/10/17 13:01 03/10/17 13:01 03/10/17 13:01 03/10/17 13:01 Results - Labs CBC & Chem 7: 03/10/17 05:37 03/10/17 05:37 Labs: Last Result ESR 1 mm/hr (0-10) 03/07/17 11:38 Calcium 7.8 mg/dL (8.6-10.8) L 03/10/17 05:37 Iron 123 mcg/dL (65-175) 03/08/17 04:54 % Saturation 56 % (20-55) H 03/08/17 04:54 Transferrin 158 mg/dL (174-364) L 03/08/17 04:54 Ferritin 510 ng/ml (22-275) H 03/08/17 04:54 Troponin I 0.19 ng/mL (0-0.03) H* 03/06/17 15:14 C-Reactive Protein 2 mg/L (Less than 5) 03/07/17 11:38 Vitamin B12 1066 pg/mL (213-816) H 03/08/17 04:54 Folate 14.8 ng/mL (7.0-31.4) 03/08/17 04:54 Stool Occult Blood Positive (Negative) A 03/09/17 15:40 Entire Visit Hgb 8.2 g/dL (12.9-16.9) L 03/10/17 05:37 Hct 24.5 % (37.5-50.1) L 03/10/17 05:37 PT 11.7 Seconds (9.4-12.1) 03/06/17 15:14 Ferritin 510 ng/ml (22-275) H 03/08/17 04:54 Total Bilirubin 2.0 mg/dL (0.2-1.2) H 03/10/17 05:37 AST 55 Units/L (5-34) H 03/10/17 05:37 ALT 76 Units/L (0-55) H 03/10/17 05:37 Folate 14.8 ng/mL (7.0-31.4) 03/08/17 04:54 - ABG ABG results: PT/INR, D-dimer PT 11.7 Seconds (9.4-12.1) 03/06/17 15:14 - Impressions Impressions Abdomen/Pelvis CT 03/10/17 13:30 IMPRESSION: Multiple hypoattenuating lesions throughout the liver. These are not fully evaluated on this unenhanced CT but are suspicious for diffuse hepatic metastatic disease. Given the appearance of these lesions, metastatic colon cancer is in the differential diagnosis. The hepatic lesions would be better evaluated with MRI of the abdomen with and without contrast. Colonoscopy is also recommended to exclude a colorectal malignancy. No evidence of lymphadenopathy. Subtle hazy central mesenteric haziness is nonspecific. This may be secondary to an inflammatory or infiltrative process. Recommend follow-up CT. Cardiomegaly with bilateral pleural effusions and interstitial pulmonary edema noted in the lung bases suggesting CHF. D/ / 03/10/2017 14:42:54 Leroy Salvador MD / parth Interpreting Provider: Leroy Salvador MD - Attending Attestation I examined this patient and my medical decision-making was reviewed with the HIGH SCHOOL DRAFTING TEACHER/PA/Advanced Practice Nurse/Resident Physician. I agree with the documented findings, disposition and treatment plan as described except to the extent set forth below. CT of the liver showing multiple liver lesion suspicious for metastatic cancer such as colon cancer etc.
[2017-03-10] MEDS: Pantoprazole 40 MG VIAL IVP SCH (09:30)
[2017-03-10] MEDS: Potassium Chloride 40 MEQ, Lidocaine 1% 2 ML in D5% in Water 500 ML IVPB SCH ×2 (09:33→14:14)
[2017-03-10 09:38] LABS: Alanine Aminotransferase 76 Units/L (0-55); Albumin/Globulin Ratio 1.4 (1.1-2.2); Alkaline Phosphatase 111 Units/L (38-126); Aspartate Amino Transferase 55 Units/L (5-34); Bilirubin,Direct 0.9 mg/dL (0.0-0.5); Bilirubin,Indirect 1.1 mg/dL (0.0-1.2); Globulin 2.1 g/dL (2.4-3.5); Total Protein 5.1 g/dL (6.0-8.3)
[2017-03-10] MEDS: Magnesium Oxide 400 MG TABLET PO SCH ×2 (09:44→20:09)
--- NOTE | 2017-03-10 10:09 | Cardiology Progress Note ---
Date of Encounter: 03/10/17 Time of Encounter: 09:00 Assessment and Plan (1) CVA (cerebral vascular accident) Current Visit: Yes Status: Acute Per cardiology: -CT head and MRI head reviewed. -Neurology consulted. -Management per primary and neurology services. Qualifiers: CVA mechanism: unspecified Qualified Code(s): I63.9 - Cerebral infarction, unspecified (2) Atrial fibrillation Current Visit: Yes Status: Chronic Per cardiology: -KNown PAF since last admission 02/26/17. -Per review of records, Not on anticoagulation due to anemia. -[id number] score 7 (age, HTN, CHF, CVA, and vascular history). 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 Patient also with anemia and thrombocytopenia. No family at bedside to discuss anticoagulation. Explained to patient regarding increased risk of stroke with a.fib and no anticoagulation. However, would be at risk of bleeding due to anemia and thrombocytopenia and needing dual antiplatelet therapy. Also, stools for occult blood positive. GI following. Will discuss with Dr.John Murray regarding appropraiteness of anticoagulation. Changes will be made accordingly. -ECG reviewed with atrial fibrillation with RVR. -Telemetry reviewed with average HR 70. -On toprol. -Will attempt to discuss anticoagulation with family when they are available, patient states they came in yesterday afternoon. Very important to discuss with family regarding atrial fibrillation and anticoagulation. Qualifiers: Atrial fibrillation type: paroxysmal Qualified Code(s): I48.0 - Paroxysmal atrial fibrillation (3) Elevated troponin Current Visit: Yes Status: Chronic Per cardiology: -Troponin 0.19. During recent NSTEMI 02/26/17, troponin peak at 2.32. -Elevated in the setting of CVA, recent NSTEMI 02/26/17. -Cath 02/26/17 with JANICE to mid RCA 99% stenosis, 60%, proximal RCA, 50% mid LAD, 30% mid circumflex. -Echocardiogram 02/25/17 with LVEF 60-65%, indeterminate left ventricular diastolic function, aortoc sclerosis, mild mitral regurgitation, mild-moderate tricuspid regurgitation, midl pulmonary hypertension, all wall segments with normal motion. -Do not suspect NSTEMI this admission. Suspect elevated troponin due to demand ischemia, due to CVA. No cardiac rehab warranted at this time. (4) CAD (coronary artery disease) Current Visit: Yes Status: Chronic Per cardiology: -Recent NSTEMI. -Cath 02/26/17 as above with JANICE. Recommend dual anti-platelet therapy for at least 1 year with JANICE. -On asa, statin, beta blokcer, and plavix. -Denies chest pain. Qualifiers: Coronary Disease-Associated Artery/Lesion type: [place] artery [place] vs. transplanted heart: [place] heart Associated angina: without angina Qualified Code(s): I25.10 - Atherosclerotic heart disease of [place] coronary artery without angina pectoris (5) Anemia Current Visit: Yes Status: Chronic Per cardiology: -Patient anemic with HGB 8.2. Of note, HGB last admission noted to be 11 to 9.3. -Of note, platelets 74. Last admission, platelets noted to be 130s. -Stools for occult blood positive. GI consulted. -Recommend close monitoring with dual anti-platelet therapy. -Management per primary service. . Qualifiers: Anemia type: unspecified type Qualified Code(s): D64.9 - Anemia, unspecified (6) Hypokalemia Current Visit: Yes Status: Acute Per cardiology: -K 2.8, being replaced oral and IV. -Management per primary service. (7) Hypomagnesemia Current Visit: Yes Status: Acute Per cardiology: -Mg 1.5, being replaced IV. -Management per primary service. Discussion w patient/family: The assessment and plan as outlined above was discussed with the patient who expressed understanding and agreement. All questions were answered. Thank you for involving us in the care of your patient. Please call with any questions. Discussed and reviewed with Dr.John Murray. Subjective Principal diagnosis: Stroke, subacute Interval history: Patient with recent admission to [facility] and underwent LHC with stenting. Patient was noted to have paroxysmal a.fib during last admission. Per review of records , Anticoagulation was not started due to anemia. Patient was at office visit with and was noted to have altered mental status and was sent to ER. Patient was admitted to [facility] and cardiology was consulted due to atrial fibrillation and CVA. Patient seen and examined, no family at bedside during examination. Patient denies current headaches, palpitations, or chest pain. Patient complains of fatigue. Patient states his family came in yesterday afternoon. Objective Vital Signs, Last 4 Hours Temp Pulse Resp BP Pulse Ox 05/09/17 08:00 93 03/10/17 07:43 98 F 87 18 140/54 93 General: Conversant, No Apparent Distress HEENT: Atraumatic, Normocephaly, Mucus Membranes Moist Neck: No JVD, Normal carotid pulses Cardiac: Other (Irregularly, irregular) Lungs: Normal Breath Sounds, No Wheeze, Rales, Rhonchi Neuro: Alert and responsive (Oriented to person and place. ) Abdomen: Soft, Non-Tender Skin: No rashes noted on visualized skin Musculoskeletal: No Chest Wall Tenderness Extremities: No Clubbing, No Cyanosis, No Edema, Normal Pulses Results 03/10/17 05:37 03/10/17 05:37 Lab Results Active Medications Acetaminophen/Butalbital/Caffeine (Fioricet) 1 each PO Q6HR PRN; Protocol PRN Reason: Headache Stop: 09/05/17 23:13 Last Admin: 03/07/17 16:18 Dose: 1 each Amlodipine Besylate (Norvasc) 10 mg PO DAILY [facility] PRN Reason: Protocol Stop: 09/06/17 09:01 Last Admin: 03/10/17 08:02 Dose: 10 mg Aspirin (Aspirin) 81 mg PO DAILY [facility] Stop: 09/06/17 09:01 Last Admin: 03/10/17 08:02 Dose: 81 mg Clonazepam (Klonopin) 0.25 mg PO DAILY [facility] Stop: 09/08/17 12:01 Last Admin: 03/10/17 08:03 Dose: Not Given Clonazepam (Klonopin) 0.5 mg PO DAILY@2000 [facility] Stop: 09/08/17 20:01 Last Admin: 03/09/17 23:55 Dose: Not Given Clopidogrel Bisulfate (Plavix) 75 mg PO DAILY [facility] Stop: 09/06/17 09:01 Last Admin: 03/10/17 08:02 Dose: 75 mg Docusate Sodium (Colace) 100 mg PO BID PRN; Protocol PRN Reason: Constipation Stop: 09/05/17 23:13 Furosemide (Lasix) 20 mg PO BIDDIURETIC [facility] Stop: 09/06/17 08:01 Last Admin: 03/10/17 08:03 Dose: 20 mg Piperacillin Sod/Tazobactam (Sod 3.375 gm/ Dextrose) 100 mls @ 25 mls/hr IVPB Q8H [facility] PRN Reason: Protocol Stop: 09/06/17 22:01 Last Admin: 03/10/17 05:14 Dose: 25 mls/hr Vancomycin HCl 1,250 mg/ (Dextrose) 250 mls @ 166.67 mls/hr IVPB Q24H [facility] Stop: 09/08/17 12:01 Last Admin: 03/09/17 12:59 Dose: 166.67 mls/hr Potassium Chloride 40 meq/ (Lidocaine 2 ml/ Dextrose) 522 mls @ 130.5 mls/hr IVPB Q6H [facility] Stop: 03/10/17 18:29 Last Admin: 03/10/17 09:33 Dose: 130.5 mls/hr Lisinopril (Zestril) 40 mg PO DAILY [facility] PRN Reason: Protocol Stop: 09/06/17 09:01 Last Admin: 03/10/17 08:03 Dose: 40 mg Lorazepam (Ativan) 0.5 mg PO Q4H PRN PRN Reason: Anxiety Stop: 09/05/17 23:13 Last Admin: 03/09/17 18:40 Dose: 0.5 mg Magnesium Oxide (Mag-Ox) 400 mg PO BID [facility] PRN Reason: Protocol Stop: 09/09/17 09:01 Last Admin: 03/10/17 09:44 Dose: 400 mg Metoprolol Succinate (Toprol Xl) 25 mg PO DAILY [facility] Stop: 09/06/17 09:01 Last Admin: 03/10/17 08:02 Dose: 25 mg Naloxone HCl (Narcan) 0.4 mg IVP Q2MIN PRN PRN Reason: Opioid Reversal Stop: 09/05/17 23:15 Oxycodone/Acetaminophen (Percocet 7.5/325) 1 each PO Q6H PRN PRN Reason: Pain Stop: 09/05/17 23:13 Last Admin: 03/10/17 05:14 Dose: 1 each Pantoprazole Sodium (Protonix) 40 mg IVP DAILY [facility] Stop: 09/09/17 09:01 Last Admin: 03/10/17 09:30 Dose: 40 mg Potassium Chloride (Potassium Chloride) 20 meq PO BID [facility] Stop: 09/06/17 21:01 Last Admin: 03/10/17 08:03 Dose: 20 meq Rosuvastatin Calcium (Crestor) 20 mg PO HS [facility] Stop: 09/06/17 21:01 Last Admin: 03/09/17 20:02 Dose: 20 mg Tamsulosin HCl (Flomax) 0.4 mg PO DAILY [facility] PRN Reason: Protocol Stop: 09/07/17 21:01 Last Admin: 03/10/17 08:02 Dose: 0.4 mg Vitamin B Complex/Vit C/Vit E (Stresstab) 1 each PO DAILY [facility] Stop: 09/06/17 09:01 Last Admin: 03/10/17 08:02 Dose: 1 each Laboratory Tests 03/06/17 03/10/17 03/10/17 15:14 05:37 05:37 WBC 15.3 H Hgb 8.2 L Hct 24.5 L Plt Count 74 L Potassium 2.8 L Creatinine 1.28 H Magnesium 1.5 L Troponin I 0.19 H* - Imaging and Cardiology Chest Xray: report reviewed Echo: report reviewed Cardiac cath: report reviewed Other Results: CT head and MRI head reviewed. - EKG Interpretation EKG results cardiology: other (Telemetry reviewed with average HR 77, minimum HR noted to be 50. Episodes of atrial fibrillation noted.) Consult Discharge Plan - Plan Referrals: Arie Willis DO [Primary Care Provider] - (most likely going to [facility])
[2017-03-10] MEDS: Vancomycin 1,250 MG in D5% in Water 250 ML IVPB SCH (12:19)
--- NOTE | 2017-03-10 14:54 | Internal Med Progress Note ---
Date of Encounter: 03/10/17 Time of Encounter: 10:00 - Assessment and plan (1) Hypokalemia Current Visit: Yes Status: Acute Assessment and plan: K supplemented, iv magnesium ordered. will continue to closely monitor and replace electrolytes as needed (2) DVT prophylaxis Current Visit: No Status: Acute Assessment and plan: heparin sq was hld due to thrombocytopenia and anemia with positive blood in stools. (3) CVA (cerebral vascular accident) Current Visit: Yes Status: Acute Assessment and plan: MRI brain reports Small acute/early subacute infarction in the right occipital lobe. Smaller punctuate infarction in the left cerebellum. Bilaterally raises the possibility for thromboembolic phenomenon from a central source. 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 fdc anticoagulation continue ASA, Plavix carotid dopplers: bilateral carotid system has nonstenotic plaque Repeat CT head obtained given change in mental status AMS likely secondary to medications, will closely monitor Qualifiers: CVA mechanism: unspecified Qualified Code(s): I63.9 - Cerebral infarction, unspecified (4) Hypomagnesemia Current Visit: Yes Status: Acute Assessment and plan: Mg supplemented continue to monitor and replace as needed (5) Atrial fibrillation Current Visit: Yes Status: Chronic Assessment and plan: no AC for now, follow caridology input. Qualifiers: Atrial fibrillation type: paroxysmal Qualified Code(s): I48.0 - Paroxysmal atrial fibrillation (6) Thrombocytopenia Current Visit: Yes Status: Chronic (7) Liver masses Current Visit: Yes Status: Acute Assessment and plan: GI consult called due to Positive blood in stool, A ct of the [place] was ordered, finding of multiple liver masses, possible from colon, follow GI input. - Subjective Interval history: First encounter with the patient. complaind of headache, no cough. daughter at bedside, all her questions were answered. - Constitutional Vitals: Temp Pulse Resp BP Pulse Ox 98.6 F 67 18 151/60 93 03/10/17 13:01 03/10/17 13:01 03/10/17 13:01 03/10/17 13:01 03/10/17 13:01 General appearance: Present: A&O X 2, no acute distress, answers questions appropriately Exam: pale, oriented to person and place. - Head Head exam: Present: atraumatic, normocephalic - Eye Eye exam: Present: PERRL, conjuntiva pink, sclera anicteric Pupils: Present: PERRL - Neck Neck exam general surgery: Present: supple, trachea midline. Absent: lymphadenopathy - Respiratory Respiratory exam: Present: decreased breath sounds. Absent: accessory muscle use, rales, rhonchi, wheezes - Cardiovascular Cardiovascular exam: Present: RRR, +S1, +S2. Absent: diastolic murmur, gallop, rubs, systolic murmur - GI/Abdominal GI/Abdominal exam: Present: normal bowel sounds, soft, no peritoneal signs. Absent: distended, tenderness - Extremities Exam Extremities exam: Present: warm, radial pulses palpable and symetrical. Absent : calf tenderness, cyanotic, pedal edema - Neurological Exam Neurological exam: Present: CN II-XII intact, oriented X3, no focal deficits. Absent: pronater drift, facial droop, speech deficit - Skin Skin exam: Present: dry, intact Internal Medicine: Result - Labs CBC & Chem 7: 03/10/17 05:37 03/10/17 05:37 Labs: Short CBC 03/10/17 Range/Units 05:37 WBC 15.3 H (4.3-11.1) K/mcL Hgb 8.2 L (12.9-16.9) g/dL Hct 24.5 L (37.5-50.1) % Plt Count 74 L (140-400) K/mcL Neutrophils # 12.3 H (1.6-8.9) K/mcL BMP 03/10/17 05:37 Sodium 145 Potassium 2.8 L Chloride 104 Carbon Dioxide 30 H BUN 25 Creatinine 1.28 H Glucose 133 H Calcium 7.8 L Liver Function 03/10/17 Range/Units 05:37 Total Bilirubin 2.0 H (0.2-1.2) mg/dL Direct Bilirubin 0.9 H (0.0-0.5) mg/dL AST 55 H (5-34) Units/L ALT 76 H (0-55) Units/L Alkaline Phosphatase 111 (38-126) Units/L Albumin 3.0 L (3.5-5.0) g/dL - ABG Interpretation ABG results: PT/INR, D-dimer PT 11.7 Seconds (9.4-12.1) 03/06/17 15:14 - Impressions Impressions Abdomen/Pelvis CT 03/10/17 13:30 IMPRESSION: Multiple hypoattenuating lesions throughout the liver. These are not fully evaluated on this unenhanced CT but are suspicious for diffuse hepatic metastatic disease. Given the appearance of these lesions, metastatic colon cancer is in the differential diagnosis. The hepatic lesions would be better evaluated with MRI of the abdomen with and without contrast. Colonoscopy is also recommended to exclude a colorectal malignancy. No evidence of lymphadenopathy. Subtle hazy central mesenteric haziness is nonspecific. This may be secondary to an inflammatory or infiltrative process. Recommend follow-up CT. Cardiomegaly with bilateral pleural effusions and interstitial pulmonary edema noted in the lung bases suggesting CHF. D/ / 03/10/2017 14:42:54 Leroy Salvador MD / parth Interpreting Provider: Leroy Salvador MD Consult Discharge Plan - Plan Referrals: Arie Willis DO [Primary Care Provider] - (most likely going to [facility])
--- NOTE | 2017-03-10 15:52 | Palliative Progress Note ---
Date of Encounter: 03/10/17 Time of Encounter: 15:50 - Assessment and plan (1) Headache Current Visit: Yes Status: Acute Assessment and plan: Patient remains on Percocet. Utilized x 2 last 24 hours. Will monitor Qualifiers: Headache chronicity pattern: unspecified pattern Intractability: intractable Qualified Code(s): R51 - Headache (2) Goals of care, counseling/discussion Current Visit: Yes Status: Acute Assessment and plan: Dr. Chaudhary in and discussed findings of CT scan with pt and daughter. They are awaiting Dr. Garza visit and recommendations. If this is cancer, not sure with his performance status and co-morbidities if he would be candidate for treatment. Provided emotional support to family. Will continue to follow clinical course. Family did state it is doubtful that he will be able to return to [facility], and state he will most likely need to transition to [facility]. (3) CVA (cerebral vascular accident) Current Visit: Yes Status: Acute Qualifiers: CVA mechanism: unspecified Qualified Code(s): I63.9 - Cerebral infarction, unspecified (4) Liver masses Current Visit: Yes Status: Acute - Time Spent With Patient Total time spent is greater than 50% in coordination of care (as documented) at patient's floor/unit and/or counseling patient: 25 - 35 minutes - Subjective Interval history: Patient has had fluctuating mental status throughout the day, however, appears very drowsy at this time but is able to converse some with and daughter at bedside. CT Abd this afternoon with multiple liver lesions suspicious for metastatic disease. Dr. Chaudhary in and discussed with family and Dr. Garza will be seeing pt at some point to discuss possible colonoscopy. He remains on Plavix for cardiac stent. Patient appears in no distress and denies pain at this time. Daughter and at bedside. - Constitutional Vitals: Abnormal lab results WBC 15.3 K/mcL (4.3-11.1) H 03/10/17 05:37 RBC 2.39 M/mcL (4.19-5.50) L 03/10/17 05:37 Hgb 8.2 g/dL (12.9-16.9) L 03/10/17 05:37 Hct 24.5 % (37.5-50.1) L 03/10/17 05:37 MCV 102.5 fL (83.0-100.0) H 03/10/17 05:37 MCH 34.3 pg (28.0-33.3) H 03/10/17 05:37 RDW 19.0 % (11.5-14.5) H 03/10/17 05:37 Plt Count 74 K/mcL (140-400) L 03/10/17 05:37 MPV 12.8 fL (9.4-12.4) H 03/10/17 05:37 Immature Gran % 6.7 % (0-4) H 03/10/17 05:37 Metamyelocytes % 1.0 % (0) H 03/06/17 15:25 Myelocytes % 1.0 % (0) H 03/06/17 15:25 Neutrophils # 12.3 K/mcL (1.6-8.9) H 03/10/17 05:37 Nucleated RBCs/100 WBC 0.7 /100 WBC (0) H 03/10/17 05:37 Platelet Estimate Marked Decrease (Normal) L 03/10/17 05:37 Large Platelets Present (Not Present) A 03/07/17 03:23 Immature Plt Fraction 15.2 % (1.1-6.1) H 03/10/17 05:37 Anisocytosis 2+ (Not Present) A 03/09/17 07:47 Microcytosis Present (Not Present) A 03/09/17 07:47 APTT 24.6 Seconds (26.0-36.0) L 03/06/17 15:14 VBG pH 7.50 pH Units (7.32-7.42) H 03/06/17 15:25 VBG pO2 42 mmHg (25-40) H 03/06/17 15:25 VBG HCO3 36.7 mEq/L (21-27) H 03/06/17 15:25 Potassium 2.8 mEq/L (3.5-4.5) L 03/10/17 05:37 Carbon Dioxide 30 mEq/L (19-29) H 03/10/17 05:37 Creatinine 1.28 mg/dL (0.72-1.25) H 03/10/17 05:37 Est GFR (Non-Af Amer) 54 (> 60) L 03/10/17 05:37 Glucose 133 mg/dL (70-99) H 03/10/17 05:37 Calculated Osmolality 306 (280-300) H 03/10/17 05:37 Calcium 7.8 mg/dL (8.6-10.8) L 03/10/17 05:37 Magnesium 1.5 mg/dL (1.6-2.6) L 03/10/17 05:37 % Saturation 56 % (20-55) H 03/08/17 04:54 Transferrin 158 mg/dL (174-364) L 03/08/17 04:54 Ferritin 510 ng/ml (22-275) H 03/08/17 04:54 Total Bilirubin 2.0 mg/dL (0.2-1.2) H 03/10/17 05:37 Direct Bilirubin 0.9 mg/dL (0.0-0.5) H 03/10/17 05:37 AST 55 Units/L (5-34) H 03/10/17 05:37 ALT 76 Units/L (0-55) H 03/10/17 05:37 Troponin I 0.19 ng/mL (0-0.03) H* 03/06/17 15:14 B-Natriuretic Peptide 348 pg/mL (0-100) H 03/07/17 03:23 Serum Total Protein 5.1 g/dL (6.0-8.3) L 03/10/17 05:37 Albumin 3.0 g/dL (3.5-5.0) L 03/10/17 05:37 Globulin 2.1 g/dL (2.4-3.5) L 03/10/17 05:37 Vitamin B12 1066 pg/mL (213-816) H 03/08/17 04:54 Urine Protein 100 mg/dL (Neg-Trace) H 03/06/17 14:55 Urine Blood Moderate (Negative) H 03/06/17 14:55 Urine Microscopic RBC 3-5 per hpf (0-3) H 03/06/17 14:55 Urine Microscopic WBC 3-5 per hpf (0-3) H 03/06/17 14:55 Ur Squamous Epith Cells Many per lpf (None-Few) H 03/06/17 14:55 Stool Occult Blood Positive (Negative) A 03/09/17 15:40 General appearance: Present: no acute distress - Respiratory Respiratory exam: Present: decreased breath sounds, CTAB - Cardiovascular Cardiovascular exam: Present: +S1, +S2 - GI/Abdominal GI/Abdominal exam: Present: normal bowel sounds, soft - Additional comments: ramirez with clear yellow urine - Extremities Exam Extremities exam: Present: normal capillary refill, normal inspection - Neurological Exam Neurological exam: Present: alert Additional comments: Can follow simple commands. Oriented to name and place. Can tell me president - Psychiatric Psychiatric exam: Present: flat affect - Skin Skin exam: Present: dry, pallor, warm Palliative Quality Palliative Quality: Screen for Code Status: Yes, Screen for Goals of Care: Yes, Screen for Pain: Yes, If Pain Regimen Started, Initiate Bowel Regimen: Yes, Screen for Nausea/Vomitting: Yes Code Status: 03/06/17 23:14 Resuscitation Status: Active [RES] Routine Comment: Resuscitation Status: Full Code Resuscitation Status: Active [RES] Routine Comment: Resuscitation Status: [id number] - Labs CBC & Chem 7: 03/10/17 05:37 03/10/17 05:37 Labs: Laboratory Results - last 24 hr 03/09/17 03/10/17 03/10/17 15:40 05:37 05:37 WBC 15.3 H RBC 2.39 L Hgb 8.2 L Hct 24.5 L MCV 102.5 H MCH 34.3 H MCHC 33.5 RDW 19.0 H Plt Count 74 L MPV 12.8 H Immature Gran % 6.7 H Seg Neutrophils % 80.1 Lymphocytes % 7.4 Monocytes % 5.6 Eosinophils % 0.1 Basophils % 0.1 Neutrophils # 12.3 H Lymphocytes # 1.1 Monocytes # 0.9 Eosinophils # 0.0 Basophils # 0.0 Nucleated RBCs/100 WBC 0.7 H Platelet Estimate Marked Decrease L Immature Plt Fraction 15.2 H Sodium 145 Potassium 2.8 L Chloride 104 Carbon Dioxide 30 H BUN 25 Creatinine 1.28 H Est GFR ( Amer) > 60 Est GFR (Non-Af Amer) 54 L BUN/Creatinine Ratio 20 Glucose 133 H Calculated Osmolality 306 H Calcium 7.8 L Phosphorus 2.3 Magnesium 1.5 L Total Bilirubin 2.0 H Direct Bilirubin 0.9 H Indirect Bilirubin 1.1 AST 55 H ALT 76 H Alkaline Phosphatase 111 Serum Total Protein 5.1 L Albumin 3.0 L Globulin 2.1 L Albumin/Globulin Ratio 1.4 Stool Occult Blood Positive A - Impressions Impressions Abdomen/Pelvis CT 03/10/17 13:30 IMPRESSION: Multiple hypoattenuating lesions throughout the liver. These are not fully evaluated on this unenhanced CT but are suspicious for diffuse hepatic metastatic disease. Given the appearance of these lesions, metastatic colon cancer is in the differential diagnosis. The hepatic lesions would be better evaluated with MRI of the abdomen with and without contrast. Colonoscopy is also recommended to exclude a colorectal malignancy. No evidence of lymphadenopathy. Subtle hazy central mesenteric haziness is nonspecific. This may be secondary to an inflammatory or infiltrative process. Recommend follow-up CT. Cardiomegaly with bilateral pleural effusions and interstitial pulmonary edema noted in the lung bases suggesting CHF. D/ / 03/10/2017 14:42:54 Leroy Salvador MD / parth Interpreting Provider: Leroy Salvador MD - ABG Interpretation ABG results: PT/INR, D-dimer PT 11.7 Seconds (9.4-12.1) 03/06/17 15:14 Consult Discharge Plan - Plan Referrals: Arie Willis DO [Primary Care Provider] - (most likely going to [facility])
--- NOTE | 2017-03-10 16:52 | Electrocardiograph Report ---
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
--- NOTE | 2017-03-10 17:08 | Electrocardiograph Report ---
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
[2017-03-11] MEDS: *HR* OxyCODONE/APAP 7.5/325 TABLET PO PRN ×2 (04:07→15:06)
[2017-03-11 05:03] LABS: Hematocrit 22.8 % (37.5-50.1); Hemoglobin 7.8 g/dL (12.9-16.9); Immature Platelets 15.6 % (1.1-6.1); Mean Corpuscular HGB Conc 34.2 g/dL (31.6-35.5); Mean Corpuscular Hemoglobin 35.1 pg (28.0-33.3); Mean Corpuscular Volume 102.7 fL (83.0-100.0); Mean Platelet Volume 12.7 fL (9.4-12.4); Nucleated Red Blood Cells 0.9 /100 WBC (0); Red Blood Count 2.22 M/mcL (4.19-5.50); Red Cell Distribution Width 19.1 % (11.5-14.5)
[2017-03-11 05:13] LABS: BUN/Creatinine Ratio 16 (6-26); Blood Urea Nitrogen 21 mg/dL (8-26); C-Reactive Protein 9 mg/L (Less than 5); Calcium 7.4 mg/dL (8.6-10.8); Carbon Dioxide 32 mEq/L (19-29); Chloride 103 mEq/L (98-109); Glucose 161 mg/dL (70-99); Magnesium 1.8 mg/dL (1.6-2.6); Osmolality,Calculated 300 (280-300); Potassium 2.7 mEq/L (3.5-4.5); Sodium 142 mEq/L (136-145); eGFR For African Americans > 60 (> 60); eGFR For Non-African Americans 52 (> 60)
[2017-03-11 05:39] LABS: Platelet Count 68 K/mcL (140-400)
[2017-03-11 05:40] LABS: Anisocytosis 1+ (Not Present); Lymphocytes # 1.3 K/mcL (0.6-4.6); Macrocytosis Present (Not Present); Monocytes # 0.3 K/mcL (0.0-1.3); Neutrophils # 10.1 K/mcL (1.6-8.9)
[2017-03-11 05:41] LABS: Platelet Estimate Decreased (Normal)
[2017-03-11] MEDS: Piperacillin/Tazobactam 3.375 GM in D5% in Water (Mini-Bag+) 100 ML IVPB SCH ×3 (06:14→22:23)
[2017-03-11] MEDS ORDERED: Magnesium Sulfate 1 GM in D5% in Water 100 ML IVPB ONE (07:56)
[2017-03-11] MEDS: Aspirin 81 MG TAB.CHEW PO SCH (08:35)
[2017-03-11] MEDS: Magnesium Oxide 400 MG TABLET PO SCH ×2 (08:35→22:23)
[2017-03-11] MEDS: Vitamin B Complex/Vit C/Vit E 1 EACH TABLET PO SCH (08:35)
[2017-03-11] MEDS: Lisinopril 20 MG TABLET PO SCH (08:36)
[2017-03-11] MEDS: Metoprolol XL (24 HR) Succ 25 MG TAB.ER.24H PO SCH (08:36)
[2017-03-11] MEDS: amLODIPine 5 MG TABLET PO SCH (08:36)
[2017-03-11] MEDS: Pantoprazole 40 MG VIAL IVP SCH (08:37)
[2017-03-11] MEDS: Potassium Chloride Elixir 20 MEQ/15 ML UDC PO SCH ×2 (08:37→22:23)
[2017-03-11] MEDS: clonazePAM 0.5 MG TABLET PO SCH ×2 (08:47→20:15)
[2017-03-11] MEDS: Potassium Chloride 40 MEQ, Lidocaine 1% 2 ML in D5% in Water 500 ML IVPB SCH ×3 (08:50→18:18)
--- NOTE | 2017-03-11 09:18 | Gastroenterology Progress Note ---
Date of Encounter: 03/11/17 Time of Encounter: 10:25 - Assessment and plan (1) CVA (cerebral vascular accident) Current Visit: Yes Status: Acute Assessment and plan: Dx during this hospitalization. Neurology on board. Qualifiers: Qualified Code(s): I63.9 - Cerebral infarction, unspecified (2) HCAP (healthcare-associated pneumonia) Current Visit: Yes Status: Acute Assessment and plan: Hospitalist management. (3) Anemia Current Visit: Yes Status: Chronic Assessment and plan: Acute on chronic. Patient is on PLAVIX due to recently placed cardiac stent () following NSTEMI. Baseline 9s. Continue to monitor and transfuse as appropriate. + occult blood in stool. Lower today in the high 7s. Considering diagnostic Cscope tomorrow to evaluate colon for possible primary tumor/colon cancer. Qualifiers: Qualified Code(s): D64.9 - Anemia, unspecified (4) CAD (coronary artery disease) Current Visit: Yes Status: Chronic Assessment and plan: NSTEMI with cardiac stent placement 02/25/17 Qualifiers: Qualified Code(s): I25.10 - Atherosclerotic heart disease of [place] coronary artery without angina pectoris (5) Thrombocytopenia Current Visit: Yes Status: Chronic Assessment and plan: CT revealed extensive liver abnormality consistent with probable metastatic cancer, possibly from the colon. CEA positive. Holding for afp and CA-GI-19-9 results. Currently plts above 50 (6) Pain, abdominal, epigastric Current Visit: Yes Status: Acute Assessment and plan: w/distension, firm to palpation - no ascites, appears to be metastatic lesions on liver. Patient denies any abdominal discomfort today. (7) Liver masses Current Visit: Yes Status: Acute - Time Spent With Patient Total time spent is greater than 50% in coordination of care (as documented) at patient's floor/unit and/or counseling patient: less than 15 minutes - Subjective Interval history: Patient was seen and examined at bedside, basically non-verbal, although he was able to tell me his belly did not hurt today. Daughter at bedside. Patient was sitting in chair in no visible distress. I also discussed case with attending and Palliative ANP. Patient daughter indicates she would like to wait for all serum cancer markers to result. She is aware that we can do Cscope, however, only diagnostic due to patient recent heart stent, to see if we can document any malignancy in the colon. - Constitutional Vitals: Temp Pulse Resp BP Pulse Ox 98.0 F 63 16 164/61 93 03/11/17 06:33 03/11/17 06:33 03/11/17 06:33 03/11/17 06:33 03/11/17 09:05 General appearance: Present: A&O X 2, mild distress, answers questions appropriately (simple questions and simple arithmetic - he does ok.) - Head Head exam: Present: atraumatic, normocephalic - Eye Eye exam: Present: normal appearance, sclera anicteric - ENT ENT exam: Present: mucous membranes moist - Neck Neck exam general surgery: Present: normal inspection, trachea midline - Respiratory Respiratory exam: Present: CTAB - Cardiovascular Cardiovascular exam: Present: RRR, +S1, +S2 - GI/Abdominal GI/Abdominal exam: Present: distended, firm - Rectal Rectal exam: Present: deferred - Extremities Exam Extremities exam: Present: warm - Neurological Exam Neurological exam: Present: altered - Psychiatric Psychiatric exam: Present: flat affect, normal affect, normal mood - Skin Skin exam: Present: dry, intact, normal color, warm Results - Labs CBC & Chem 7: 03/11/17 04:47 03/11/17 04:47 Labs: Last Result ESR 1 mm/hr (0-10) 03/11/17 04:47 Calcium 7.4 mg/dL (8.6-10.8) L 03/11/17 04:47 Iron 123 mcg/dL (65-175) 03/08/17 04:54 % Saturation 56 % (20-55) H 03/08/17 04:54 Transferrin 158 mg/dL (174-364) L 03/08/17 04:54 Ferritin 510 ng/ml (22-275) H 03/08/17 04:54 Troponin I 0.19 ng/mL (0-0.03) H* 03/06/17 15:14 C-Reactive Protein 9 mg/L (Less than 5) H 03/11/17 04:47 Vitamin B12 1066 pg/mL (213-816) H 03/08/17 04:54 Folate 14.8 ng/mL (7.0-31.4) 03/08/17 04:54 Stool Occult Blood Positive (Negative) A 03/09/17 15:40 Entire Visit Hgb 7.8 g/dL (12.9-16.9) L 03/11/17 04:47 Hct 22.8 % (37.5-50.1) L 03/11/17 04:47 PT 11.7 Seconds (9.4-12.1) 03/06/17 15:14 Ferritin 510 ng/ml (22-275) H 03/08/17 04:54 Total Bilirubin 2.0 mg/dL (0.2-1.2) H 03/10/17 05:37 AST 55 Units/L (5-34) H 03/10/17 05:37 ALT 76 Units/L (0-55) H 03/10/17 05:37 Ammonia 24 mcmol/L (18-72) 03/11/17 04:47 Carcinoembryonic Ag 9.4 ng/mL (0-5.0) H 03/11/17 04:47 Folate 14.8 ng/mL (7.0-31.4) 03/08/17 04:54 - ABG ABG results: PT/INR, D-dimer PT 11.7 Seconds (9.4-12.1) 03/06/17 15:14 - Impressions Impressions Abdomen/Pelvis CT 03/10/17 13:30 IMPRESSION: Multiple hypoattenuating lesions throughout the liver. These are not fully evaluated on this unenhanced CT but are suspicious for diffuse hepatic metastatic disease. Given the appearance of these lesions, metastatic colon cancer is in the differential diagnosis. The hepatic lesions would be better evaluated with MRI of the abdomen with and without contrast. Colonoscopy is also recommended to exclude a colorectal malignancy. No evidence of lymphadenopathy. Subtle hazy central mesenteric haziness is nonspecific. This may be secondary to an inflammatory or infiltrative process. Recommend follow-up CT. Cardiomegaly with bilateral pleural effusions and interstitial pulmonary edema noted in the lung bases suggesting CHF. D/ / 03/10/2017 14:42:54 Leroy Salvador MD / parth Interpreting Provider: Leroy Salvador MD Consult Discharge Plan - Plan Referrals: Arie Willis DO [Primary Care Provider] - ([facility])
--- NOTE | 2017-03-11 10:33 | Event Note ---
Date of Encounter: 03/11/17 Time of Encounter: 10:00 - Cardiology Event Note Cardiology has been folllowing to address anticoagualtion with family for atrial fibrillation. Per review of hospitalist note, family declined anticoagulation and were aware of increased stroke risk. Cardiology has not been able to meet with family. I called daughter today at 0926, with no answer. Message left for her to return my call. No return call as of yet. Per review of records, patient is now being worked up for possible metastatic cancer. Suspected to be from colon with mets to the liver. PLan for colonoscopy tomorrow. Hemoglobin further declining today. Given worsening anemia and possible metastatic cancer, would not recommend anticoagualtion at this time. Patient with recent drug eluding stent to RCA 02/26/17. Recommend dual anti- platelet therapy for at least one year. Of note, patient is DNR-CCA/DNI. Cardiology will sign off and will schedule follow up appointment in outpatient setting. Follow up set. Re-consult as needed.
--- NOTE | 2017-03-11 10:47 | Palliative Progress Note ---
Date of Encounter: 03/11/17 Time of Encounter: 10:20 - Assessment and plan (1) Headache Current Visit: Yes Status: Acute Assessment and plan: Continues with Fioricet, however has not received dose recently. He has had Percocet for back x1 last 24 hours. Monitor. Daughter asking for neurology input re; CVA and headaches. Qualifiers: Headache chronicity pattern: unspecified pattern Intractability: intractable Qualified Code(s): R51 - Headache (2) Goals of care, counseling/discussion Current Visit: Yes Status: Acute Assessment and plan: Long discussion with daughter. She states family has discussed and with the finding of probable metastatic disease in the liver, she states they are not leaning toward further testing. States that they would not want to pursue cancer treatment even if they had firm diagnosis. She discusses that she is investigating therapy with "liquid vitamins". Discussed d/c plan and awaiting approval from Idalia Humphries. Discussed with daughter, that if he does poorly and is not progressing with physical therapy, once Medicaid is established they could discuss hospice enrollment at [facility]. Discussed with daughter that hospice could provide assistance with symptom management and support. She verbalized understanding Reviewed code status again and discussed differences with DNRCCA and DNRCC. Daughter transitioned pt to DNRCC. State form completed and provided her with copies. D/W Dr. Chaudhary (3) CVA (cerebral vascular accident) Current Visit: Yes Status: Acute Qualifiers: CVA mechanism: unspecified Qualified Code(s): I63.9 - Cerebral infarction, unspecified (4) Liver masses Current Visit: Yes Status: Acute - Time Spent With Patient Total time spent is greater than 50% in coordination of care (as documented) at patient's floor/unit and/or counseling patient: 25 - 35 minutes - Subjective Interval history: Patient up in chair - just finished with physical therapy. Alert and oriented to name and place, very drowsy at this time and falls asleep during conversation. Daughter at bedside. CEA was 9.4. States that she has discussed with family re: finding of possible metastatic cancer, and they would decline any type of cancer treatment. She would like follow-up with neurology re: CVA and headache treatment. - Constitutional Vitals: Abnormal lab results WBC 12.6 K/mcL (4.3-11.1) H 03/11/17 04:47 RBC 2.22 M/mcL (4.19-5.50) L 03/11/17 04:47 Hgb 7.8 g/dL (12.9-16.9) L 03/11/17 04:47 Hct 22.8 % (37.5-50.1) L 03/11/17 04:47 MCV 102.7 fL (83.0-100.0) H 03/11/17 04:47 MCH 35.1 pg (28.0-33.3) H 03/11/17 04:47 RDW 19.1 % (11.5-14.5) H 03/11/17 04:47 Plt Count 68 K/mcL (140-400) L 03/11/17 04:47 MPV 12.7 fL (9.4-12.4) H 03/11/17 04:47 Immature Gran % 6.7 % (0-4) H 03/10/17 05:37 Metamyelocytes % 2.0 % (0) H 03/11/17 04:47 Myelocytes % 6.0 % (0) H 03/11/17 04:47 Neutrophils # 10.1 K/mcL (1.6-8.9) H 03/11/17 04:47 Nucleated RBCs/100 WBC 0.9 /100 WBC (0) H 03/11/17 04:47 Platelet Estimate Decreased (Normal) L 03/11/17 04:47 Large Platelets Present (Not Present) A 03/07/17 03:23 Immature Plt Fraction 15.6 % (1.1-6.1) H 03/11/17 04:47 Anisocytosis 1+ (Not Present) A 03/11/17 04:47 Microcytosis Present (Not Present) A 03/09/17 07:47 Macrocytosis Present (Not Present) A 03/11/17 04:47 APTT 24.6 Seconds (26.0-36.0) L 03/06/17 15:14 VBG pH 7.50 pH Units (7.32-7.42) H 03/06/17 15:25 VBG pO2 42 mmHg (25-40) H 03/06/17 15:25 VBG HCO3 36.7 mEq/L (21-27) H 03/06/17 15:25 Potassium 2.7 mEq/L (3.5-4.5) L 03/11/17 04:47 Carbon Dioxide 32 mEq/L (19-29) H 03/11/17 04:47 Creatinine 1.32 mg/dL (0.72-1.25) H 03/11/17 04:47 Est GFR (Non-Af Amer) 52 (> 60) L 03/11/17 04:47 Glucose 161 mg/dL (70-99) H 03/11/17 04:47 Calcium 7.4 mg/dL (8.6-10.8) L 03/11/17 04:47 % Saturation 56 % (20-55) H 03/08/17 04:54 Transferrin 158 mg/dL (174-364) L 03/08/17 04:54 Ferritin 510 ng/ml (22-275) H 03/08/17 04:54 Total Bilirubin 2.0 mg/dL (0.2-1.2) H 03/10/17 05:37 Direct Bilirubin 0.9 mg/dL (0.0-0.5) H 03/10/17 05:37 AST 55 Units/L (5-34) H 03/10/17 05:37 ALT 76 Units/L (0-55) H 03/10/17 05:37 Troponin I 0.19 ng/mL (0-0.03) H* 03/06/17 15:14 C-Reactive Protein 9 mg/L (Less than 5) H 03/11/17 04:47 B-Natriuretic Peptide 348 pg/mL (0-100) H 03/07/17 03:23 Serum Total Protein 5.1 g/dL (6.0-8.3) L 03/10/17 05:37 Albumin 3.0 g/dL (3.5-5.0) L 03/10/17 05:37 Globulin 2.1 g/dL (2.4-3.5) L 03/10/17 05:37 Carcinoembryonic Ag 9.4 ng/mL (0-5.0) H 03/11/17 04:47 Vitamin B12 1066 pg/mL (213-816) H 03/08/17 04:54 Urine Protein 100 mg/dL (Neg-Trace) H 03/06/17 14:55 Urine Blood Moderate (Negative) H 03/06/17 14:55 Urine Microscopic RBC 3-5 per hpf (0-3) H 03/06/17 14:55 Urine Microscopic WBC 3-5 per hpf (0-3) H 03/06/17 14:55 Ur Squamous Epith Cells Many per lpf (None-Few) H 03/06/17 14:55 Stool Occult Blood Positive (Negative) A 03/09/17 15:40 General appearance: Present: no acute distress - Respiratory Respiratory exam: Present: decreased breath sounds, CTAB - Cardiovascular Cardiovascular exam: Present: irregular rhythm - GI/Abdominal GI/Abdominal exam: Present: normal bowel sounds, soft - Extremities Exam Additional comments: Skin tear to left arm with dressings D/I. - Neurological Exam Neurological exam: Present: alert Additional comments: Oriented to name and place. Follows simple commands. Answers simple questions appropriately. Palliative Quality Palliative Quality: Screen for Code Status: Yes, Screen for Goals of Care: Yes, Screen for Pain: Yes, If Pain Regimen Started, Initiate Bowel Regimen: Yes, Screen for Nausea/Vomitting: Yes Code Status: 03/06/17 23:14 Resuscitation Status: Active [RES] Routine Comment: Resuscitation Status: Full Code Resuscitation Status: Active [RES] Routine Comment: Resuscitation Status: [id number] - Labs CBC & Chem 7: 03/11/17 04:47 03/11/17 04:47 Labs: Laboratory Results - last 24 hr 03/08/17 03/11/17 03/11/17 04:54 04:47 04:47 WBC 12.6 H RBC 2.22 L Hgb 7.8 L Hct 22.8 L MCV 102.7 H MCH 35.1 H MCHC 34.2 RDW 19.1 H Plt Count 68 L MPV 12.7 H Seg Neutrophils % 78.0 Band Neutrophils % 2.0 Lymphocytes % 10.0 Monocytes % 2.0 Metamyelocytes % 2.0 H Myelocytes % 6.0 H Neutrophils # 10.1 H Lymphocytes # 1.3 Monocytes # 0.3 Nucleated RBCs/100 WBC 0.9 H Platelet Estimate Decreased L Immature Plt Fraction 15.6 H Anisocytosis 1+ A Macrocytosis Present A ESR 1 Sodium Potassium Chloride Carbon Dioxide BUN Creatinine Est GFR ( Amer) Est GFR (Non-Af Amer) BUN/Creatinine Ratio Glucose Calculated Osmolality Calcium Magnesium Ammonia C-Reactive Protein Carcinoembryonic Ag Methylmalonic Acid 0.25 03/11/17 03/11/17 03/11/17 04:47 04:47 04:47 WBC RBC Hgb Hct MCV MCH MCHC RDW Plt Count MPV Seg Neutrophils % Band Neutrophils % Lymphocytes % Monocytes % Metamyelocytes % Myelocytes % Neutrophils # Lymphocytes # Monocytes # Nucleated RBCs/100 WBC Platelet Estimate Immature Plt Fraction Anisocytosis Macrocytosis ESR Sodium 142 Potassium 2.7 L Chloride 103 Carbon Dioxide 32 H BUN 21 Creatinine 1.32 H Est GFR ( Amer) > 60 Est GFR (Non-Af Amer) 52 L BUN/Creatinine Ratio 16 Glucose 161 H Calculated Osmolality 300 Calcium 7.4 L Magnesium 1.8 Ammonia 24 C-Reactive Protein 9 H Carcinoembryonic Ag 9.4 H Methylmalonic Acid - Impressions Impressions Abdomen/Pelvis CT 03/10/17 13:30 IMPRESSION: Multiple hypoattenuating lesions throughout the liver. These are not fully evaluated on this unenhanced CT but are suspicious for diffuse hepatic metastatic disease. Given the appearance of these lesions, metastatic colon cancer is in the differential diagnosis. The hepatic lesions would be better evaluated with MRI of the abdomen with and without contrast. Colonoscopy is also recommended to exclude a colorectal malignancy. No evidence of lymphadenopathy. Subtle hazy central mesenteric haziness is nonspecific. This may be secondary to an inflammatory or infiltrative process. Recommend follow-up CT. Cardiomegaly with bilateral pleural effusions and interstitial pulmonary edema noted in the lung bases suggesting CHF. D/ / 03/10/2017 14:42:54 Leroy Salvador MD / parth Interpreting Provider: Leroy Salvador MD - ABG Interpretation ABG results: PT/INR, D-dimer PT 11.7 Seconds (9.4-12.1) 03/06/17 15:14 Consult Discharge Plan - Plan Referrals: Arie Willis DO [Primary Care Provider] - (most likely going to ECF)
[2017-03-11] MEDS: Vancomycin 1,250 MG in D5% in Water 250 ML IVPB SCH (13:02)
--- NOTE | 2017-03-11 15:31 | Internal Med Progress Note ---
Date of Encounter: 03/11/17 Time of Encounter: 10:35 - Assessment and plan (1) Hypokalemia Current Visit: Yes Status: Acute Assessment and plan: K supplemented, iv magnesium ordered. will continue to closely monitor and replace electrolytes as needed hold lasix for now. (2) DVT prophylaxis Current Visit: No Status: Acute Assessment and plan: heparin sq was held due to thrombocytopenia and anemia with positive blood in stools. (3) CVA (cerebral vascular accident) Current Visit: Yes Status: Acute Assessment and plan: MRI brain reports Small acute/early subacute infarction in the right occipital lobe. Smaller punctuate infarction in the left cerebellum. Bilaterally raises the possibility for thromboembolic phenomenon from a central source. 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 halfway anticoagulation continue ASA, Plavix, recent JANICE carotid dopplers: bilateral carotid system has nonstenotic plaque Repeat CT head obtained given change in mental status ESR and crp noted. Qualifiers: CVA mechanism: unspecified Qualified Code(s): I63.9 - Cerebral infarction, unspecified (4) Hypomagnesemia Current Visit: Yes Status: Acute (5) Atrial fibrillation Current Visit: Yes Status: Chronic Assessment and plan: no AC for now, anemia and positive blood in stools. cardiology input noted, no further interventions. Qualifiers: Atrial fibrillation type: paroxysmal Qualified Code(s): I48.0 - Paroxysmal atrial fibrillation (6) Thrombocytopenia Current Visit: Yes Status: Chronic (7) Liver masses Current Visit: Yes Status: Acute Assessment and plan: GI consult called due to Positive blood in stool, A ct of the badomen was ordered, finding of multiple liver masses, possible from colon, CEA mildly elevated, follow AFP and CA19.9, follow GI input. Patient has decided not to pursue aggressive therapy even if malignancy is confirmed. plan would be snf and possible hopsice, d/w palliative care team. D/W patient's daughter in detail. - Subjective Interval history: no headache, no cough. daughter at bedside, all her questions were answered. - Constitutional Vitals: Temp Pulse Resp BP Pulse Ox 97.7 F 88 18 139/71 92 03/11/17 15:05 03/11/17 15:05 03/11/17 15:05 03/11/17 15:05 03/11/17 15:05 General appearance: Present: A&O X 2, no acute distress, answers questions appropriately Exam: pale - Head Head exam: Present: atraumatic, normocephalic - Eye Eye exam: Present: PERRL, conjuntiva pink, sclera anicteric Pupils: Present: PERRL - Neck Neck exam general surgery: Present: supple, trachea midline. Absent: lymphadenopathy - Respiratory Respiratory exam: Present: CTAB. Absent: accessory muscle use, rales, rhonchi, wheezes - Cardiovascular Cardiovascular exam: Present: RRR, +S1, +S2. Absent: diastolic murmur, gallop, rubs, systolic murmur - GI/Abdominal GI/Abdominal exam: Present: normal bowel sounds, soft, no peritoneal signs. Absent: distended, tenderness - Extremities Exam Extremities exam: Present: warm, radial pulses palpable and symetrical. Absent : calf tenderness, cyanotic, pedal edema - Neurological Exam Neurological exam: Present: CN II-XII intact, oriented X3, no focal deficits. Absent: pronater drift, facial droop, speech deficit - Skin Skin exam: Present: dry, intact Internal Medicine: Result - Labs CBC & Chem 7: 03/11/17 04:47 03/11/17 04:47 Labs: Short CBC 03/11/17 Range/Units 04:47 WBC 12.6 H (4.3-11.1) K/mcL Hgb 7.8 L (12.9-16.9) g/dL Hct 22.8 L (37.5-50.1) % Plt Count 68 L (140-400) K/mcL Neutrophils # 10.1 H (1.6-8.9) K/mcL BMP 03/11/17 04:47 Sodium 142 Potassium 2.7 L Chloride 103 Carbon Dioxide 32 H BUN 21 Creatinine 1.32 H Glucose 161 H Calcium 7.4 L - ABG Interpretation ABG results: PT/INR, D-dimer PT 11.7 Seconds (9.4-12.1) 03/06/17 15:14 Consult Discharge Plan - Plan Referrals: Arie Willis DO [Primary Care Provider] - (most likely going to [facility])
[2017-03-12 05:40] LABS: Hemoglobin 7.7 g/dL (12.9-16.9); Mean Corpuscular Hemoglobin 35.2 pg (28.0-33.3); Red Blood Count 2.19 M/mcL (4.19-5.50)
[2017-03-12] MEDS: Piperacillin/Tazobactam 3.375 GM in D5% in Water (Mini-Bag+) 100 ML IVPB SCH (05:40)
[2017-03-12 05:42] LABS: Hematocrit 22.6 % (37.5-50.1); Immature Platelets 14.1 % (1.1-6.1); Mean Corpuscular HGB Conc 34.1 g/dL (31.6-35.5); Mean Corpuscular Volume 103.2 fL (83.0-100.0); Mean Platelet Volume 13.7 fL (9.4-12.4); Red Cell Distribution Width 19.7 % (11.5-14.5)
[2017-03-12] MEDS: *HR* LORazepam 0.5 MG TABLET PO PRN ×2 (05:43→22:31)
[2017-03-12 06:01] LABS: Calcium 7.8 mg/dL (8.6-10.8); Magnesium 2.2 mg/dL (1.6-2.6); Potassium 4.3 mEq/L (3.5-4.5)
[2017-03-12 06:10] LABS: Platelet Count 74 K/mcL (140-400)
[2017-03-12 06:13] LABS: Lymphocytes # 1.2 K/mcL (0.6-4.6); Macrocytosis Present (Not Present); Monocytes # 0.9 K/mcL (0.0-1.3); Neutrophils # 13.3 K/mcL (1.6-8.9); Platelet Estimate Decreased (Normal)
[2017-03-12] MEDS ORDERED: Aminoglycoside Consult 1 EACH MC ONE (07:22)
[2017-03-12] MEDS: clonazePAM 0.5 MG TABLET PO SCH ×2 (09:24→20:17)
[2017-03-12] MEDS: Magnesium Oxide 400 MG TABLET PO SCH ×2 (09:25→20:16)
[2017-03-12] MEDS: Aspirin 81 MG TAB.CHEW PO SCH (09:25)
[2017-03-12] MEDS: Vitamin B Complex/Vit C/Vit E 1 EACH TABLET PO SCH (09:25)
[2017-03-12] MEDS: Pantoprazole 40 MG VIAL IVP SCH (09:26)
[2017-03-12] MEDS: Metoprolol XL (24 HR) Succ 25 MG TAB.ER.24H PO SCH (09:27)
--- NOTE | 2017-03-12 09:27 | Palliative Progress Note ---
Date of Encounter: 03/12/17 Time of Encounter: 09:25 - Assessment and plan (1) Headache Current Visit: Yes Status: Acute Assessment and plan: Fiorcet discontinued yesterday. Family reports better response with clonazepam. Nurse about to administer dose. Qualifiers: Headache chronicity pattern: unspecified pattern Intractability: intractable Qualified Code(s): R51 - Headache (2) Goals of care, counseling/discussion Current Visit: Yes Status: Acute Assessment and plan: Goals of care discussed with palliative care team yesterday. (3) HCAP (healthcare-associated pneumonia) Current Visit: Yes Status: Acute (4) CVA (cerebral vascular accident) Current Visit: Yes Status: Acute Assessment and plan: Neurology following. Qualifiers: CVA mechanism: unspecified Qualified Code(s): I63.9 - Cerebral infarction, unspecified (5) Urinary frequency Current Visit: Yes Status: Acute Assessment and plan: Flomax (6) Liver masses Current Visit: Yes Status: Acute - Time Spent With Patient Total time spent is greater than 50% in coordination of care (as documented) at patient's floor/unit and/or counseling patient: - Subjective Interval history: Mr. Sterling is lying in bed, restless at times. Reports "not feeling well", but unable to describe the complaints in detail. Reports some abdominal discomfort. Last BM was yesterday (reported as a liquid BM). Received one dose of lorazepam this morning. Nurse in room about to give morning medications. Poor appetite. Worked with PT/OT yesterday. - Constitutional Vitals: Abnormal lab results WBC 15.5 K/mcL (4.3-11.1) H 03/12/17 04:08 RBC 2.19 M/mcL (4.19-5.50) L 03/12/17 04:08 Hgb 7.7 g/dL (12.9-16.9) L 03/12/17 04:08 Hct 22.6 % (37.5-50.1) L 03/12/17 04:08 MCV 103.2 fL (83.0-100.0) H 03/12/17 04:08 MCH 35.2 pg (28.0-33.3) H 03/12/17 04:08 RDW 19.7 % (11.5-14.5) H 03/12/17 04:08 Plt Count 74 K/mcL (140-400) L 03/12/17 04:08 MPV 13.7 fL (9.4-12.4) H 03/12/17 04:08 Immature Gran % 6.7 % (0-4) H 03/10/17 05:37 Metamyelocytes % 2.0 % (0) H 03/11/17 04:47 Myelocytes % 6.0 % (0) H 03/11/17 04:47 Neutrophils # 13.3 K/mcL (1.6-8.9) H 03/12/17 04:08 Nucleated RBCs/100 WBC 1.0 /100 WBC (0) H 03/12/17 04:08 Platelet Estimate Decreased (Normal) L 03/12/17 04:08 Large Platelets Present (Not Present) A 03/07/17 03:23 Immature Plt Fraction 14.1 % (1.1-6.1) H 03/12/17 04:08 Anisocytosis 1+ (Not Present) A 03/11/17 04:47 Microcytosis Present (Not Present) A 03/09/17 07:47 Macrocytosis Present (Not Present) A 03/12/17 04:08 APTT 24.6 Seconds (26.0-36.0) L 03/06/17 15:14 VBG pH 7.50 pH Units (7.32-7.42) H 03/06/17 15:25 VBG pO2 42 mmHg (25-40) H 03/06/17 15:25 VBG HCO3 36.7 mEq/L (21-27) H 03/06/17 15:25 Creatinine 1.45 mg/dL (0.72-1.25) H 03/12/17 04:08 Est GFR ( Amer) 56 (> 60) L 03/12/17 04:08 Est GFR (Non-Af Amer) 47 (> 60) L 03/12/17 04:08 Glucose 152 mg/dL (70-99) H 03/12/17 04:08 Calcium 7.8 mg/dL (8.6-10.8) L 03/12/17 04:08 % Saturation 56 % (20-55) H 03/08/17 04:54 Transferrin 158 mg/dL (174-364) L 03/08/17 04:54 Ferritin 510 ng/ml (22-275) H 03/08/17 04:54 Total Bilirubin 2.0 mg/dL (0.2-1.2) H 03/10/17 05:37 Direct Bilirubin 0.9 mg/dL (0.0-0.5) H 03/10/17 05:37 AST 55 Units/L (5-34) H 03/10/17 05:37 ALT 76 Units/L (0-55) H 03/10/17 05:37 Troponin I 0.19 ng/mL (0-0.03) H* 03/06/17 15:14 C-Reactive Protein 9 mg/L (Less than 5) H 03/11/17 04:47 B-Natriuretic Peptide 348 pg/mL (0-100) H 03/07/17 03:23 Serum Total Protein 5.1 g/dL (6.0-8.3) L 03/10/17 05:37 Albumin 3.0 g/dL (3.5-5.0) L 03/10/17 05:37 Globulin 2.1 g/dL (2.4-3.5) L 03/10/17 05:37 Carcinoembryonic Ag 9.4 ng/mL (0-5.0) H 03/11/17 04:47 Vitamin B12 1066 pg/mL (213-816) H 03/08/17 04:54 Urine Protein 100 mg/dL (Neg-Trace) H 03/06/17 14:55 Urine Blood Moderate (Negative) H 03/06/17 14:55 Urine Microscopic RBC 3-5 per hpf (0-3) H 03/06/17 14:55 Urine Microscopic WBC 3-5 per hpf (0-3) H 03/06/17 14:55 Ur Squamous Epith Cells Many per lpf (None-Few) H 03/06/17 14:55 Stool Occult Blood Positive (Negative) A 03/09/17 15:40 Exam: 81 year old male, restless at times, intermittent confusion, but able to hold/ participate in conversation. - ENT ENT exam: Present: mucous membranes moist - Respiratory Respiratory exam: Present: decreased breath sounds. Absent: accessory muscle use, rales, respiratory distress, rhonchi, wheezes, tachypnea - Cardiovascular Cardiovascular exam: Present: RRR, systolic murmur - GI/Abdominal GI/Abdominal exam: Present: hyperactive bowel sounds, soft, tenderness (with palpation). Absent: guarding, rigid - Extremities Exam Extremities exam: Absent: pedal edema - Neurological Exam Neurological exam: Present: alert (oriented to person only. holds conversation , but unable to use descriptors) - Psychiatric Psychiatric exam: Present: agitated (restless) - Skin Skin exam: Present: dry, warm Palliative Quality Palliative Quality: Screen for Code Status: Yes, Screen for Goals of Care: Yes, Screen for Pain: Yes, If Pain Regimen Started, Initiate Bowel Regimen: Yes, Screen for Nausea/Vomitting: Yes Code Status: 03/06/17 23:14 Resuscitation Status: Active [RES] Routine Comment: Resuscitation Status: [id number] Resuscitation Status: Active [RES] Routine Comment: Resuscitation Status: Full Code 03/11/17 10:58 DNR [Resuscitation Status: Active] [RES] Routine Comment: Resuscitation Status: DNR-Comfort Care - Labs CBC & Chem 7: 03/12/17 04:08 03/12/17 04:08 Labs: Laboratory Results - last 24 hr 03/11/17 03/11/17 03/12/17 12:02 16:23 04:08 WBC 15.5 H RBC 2.19 L Hgb 7.7 L Hct 22.6 L MCV 103.2 H MCH 35.2 H MCHC 34.1 RDW 19.7 H Plt Count 74 L MPV 13.7 H Seg Neutrophils % 84.0 Band Neutrophils % 2.0 Lymphocytes % 8.0 Monocytes % 6.0 Neutrophils # 13.3 H Lymphocytes # 1.2 Monocytes # 0.9 Nucleated RBCs/100 WBC 1.0 H Platelet Estimate Decreased L Immature Plt Fraction 14.1 H Macrocytosis Present A Sodium Potassium 3.7 D Chloride Carbon Dioxide BUN Creatinine Est GFR ( Amer) Est GFR (Non-Af Amer) BUN/Creatinine Ratio Glucose Calculated Osmolality Calcium Magnesium Vancomycin Trough 16.2 03/12/17 04:08 WBC RBC Hgb Hct MCV MCH MCHC RDW Plt Count MPV Seg Neutrophils % Band Neutrophils % Lymphocytes % Monocytes % Neutrophils # Lymphocytes # Monocytes # Nucleated RBCs/100 WBC Platelet Estimate Immature Plt Fraction Macrocytosis Sodium 140 Potassium 4.3 Chloride 103 Carbon Dioxide 25 BUN 21 Creatinine 1.45 H Est GFR ( Amer) 56 L Est GFR (Non-Af Amer) 47 L BUN/Creatinine Ratio 14 Glucose 152 H Calculated Osmolality 296 Calcium 7.8 L Magnesium 2.2 Vancomycin Trough - ABG Interpretation ABG results: PT/INR, D-dimer PT 11.7 Seconds (9.4-12.1) 03/06/17 15:14 Consult Discharge Plan - Plan Referrals: Arie Willis DO [Primary Care Provider] - (most likely going to ECF.. going to [facility])
[2017-03-12] MEDS: amLODIPine 5 MG TABLET PO SCH (10:11)
--- NOTE | 2017-03-12 13:05 | Internal Med Progress Note ---
Date of Encounter: 03/12/17 Time of Encounter: 13:03 - Assessment and plan (1) Hypokalemia Current Visit: Yes Status: Acute Assessment and plan: K supplemented and potassium wnl today, will continue monitoring. will continue to closely monitor and replace electrolytes as needed hold lasix for now. (2) DVT prophylaxis Current Visit: No Status: Acute Assessment and plan: heparin sq was held due to thrombocytopenia and anemia with positive blood in stools. (3) CVA (cerebral vascular accident) Current Visit: Yes Status: Acute Assessment and plan: MRI brain reports Small acute/early subacute infarction in the right occipital lobe. Smaller punctuate infarction in the left cerebellum. Bilaterally raises the possibility for thromboembolic phenomenon from a central source. 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 Qualifiers: CVA mechanism: unspecified Qualified Code(s): I63.9 - Cerebral infarction, unspecified (4) Hypomagnesemia Current Visit: Yes Status: Acute Assessment and plan: Mg supplemented, Mg WNL today. continue to monitor and replace as needed (5) Atrial fibrillation Current Visit: Yes Status: Chronic Assessment and plan: no AC for now, anemia and positive blood in stools. cardiology input noted, no further interventions. Qualifiers: Atrial fibrillation type: paroxysmal Qualified Code(s): I48.0 - Paroxysmal atrial fibrillation (6) Thrombocytopenia Current Visit: Yes Status: Chronic (7) Liver masses Current Visit: Yes Status: Acute Assessment and plan: GI consult called due to Positive blood in stool, A ct of the badomen was ordered, finding of multiple liver masses, possible from colon, CEA mildly elevated, follow AFP and CA19.9, follow GI input. Patient has decided not to pursue aggressive therapy even if malignancy is confirmed. plan would be snf and possible hopsice, will d/w palliative care team. D/C planning. Will stop antibiotics today, no evidence of imfection, no growht in cultures, no fever. WBC elevated likely due to underlying malignancy. D/W patient's daughter in detail. - Subjective Interval history: no headache, no cough. daughter at bedside, all her questions were answered. - Constitutional Vitals: Temp Pulse Resp BP Pulse Ox 97.6 F 69 20 158/72 96 03/12/17 10:50 03/12/17 10:50 03/12/17 10:50 03/12/17 10:50 03/12/17 10:50 General appearance: Present: A&O X 2, no acute distress, answers questions appropriately Exam: pale - Head Head exam: Present: atraumatic, normocephalic - Eye Eye exam: Present: PERRL, conjuntiva pink, sclera anicteric Pupils: Present: PERRL - Neck Neck exam general surgery: Present: supple, trachea midline. Absent: lymphadenopathy - Respiratory Respiratory exam: Present: CTAB. Absent: accessory muscle use, rales, rhonchi, wheezes - Cardiovascular Cardiovascular exam: Present: RRR, +S1, +S2. Absent: diastolic murmur, gallop, rubs, systolic murmur - GI/Abdominal GI/Abdominal exam: Present: normal bowel sounds, soft, no peritoneal signs. Absent: distended, tenderness - Extremities Exam Extremities exam: Present: warm, radial pulses palpable and symetrical. Absent : calf tenderness, cyanotic, pedal edema - Neurological Exam Neurological exam: Present: CN II-XII intact, oriented X3, no focal deficits. Absent: pronater drift, facial droop, speech deficit - Skin Skin exam: Present: dry, intact Internal Medicine: Result - Labs CBC & Chem 7: 03/12/17 04:08 03/12/17 04:08 Labs: Short CBC 03/12/17 Range/Units 04:08 WBC 15.5 H (4.3-11.1) K/mcL Hgb 7.7 L (12.9-16.9) g/dL Hct 22.6 L (37.5-50.1) % Plt Count 74 L (140-400) K/mcL Neutrophils # 13.3 H (1.6-8.9) K/mcL BMP 03/11/17 03/12/17 16:23 04:08 Sodium 140 Potassium 3.7 D 4.3 Chloride 103 Carbon Dioxide 25 BUN 21 Creatinine 1.45 H Glucose 152 H Calcium 7.8 L - ABG Interpretation ABG results: PT/INR, D-dimer PT 11.7 Seconds (9.4-12.1) 03/06/17 15:14 Consult Discharge Plan - Plan Referrals: Arie Willis, [Primary Care Provider] - (most likely going to ECF.. going to [facility])
[2017-03-12] MEDS: *HR* OxyCODONE/APAP 7.5/325 TABLET PO PRN (13:33)
[2017-03-12 15:12] LABS: AFP Tumor Marker Non-Pregnant 2 ng/mL (0-9); Cancer Antigen-GI (CA 19-9) 1 U/mL (0-37)
[2017-03-12] MEDS ORDERED: 0.9 % Sodium Chloride 500 ML ONE (23:32)
[2017-03-13 04:56] LABS: Hematocrit 22.3 % (37.5-50.1)
[2017-03-13 04:58] LABS: Hemoglobin 7.6 g/dL (12.9-16.9); Immature Platelets 14.2 % (1.1-6.1); Mean Corpuscular HGB Conc 34.1 g/dL (31.6-35.5); Mean Corpuscular Volume 102.8 fL (83.0-100.0); Mean Platelet Volume 12.9 fL (9.4-12.4); Nucleated Red Blood Cells 1.3 /100 WBC (0); Red Blood Count 2.17 M/mcL (4.19-5.50); Red Cell Distribution Width 19.6 % (11.5-14.5)
[2017-03-13 05:10] LABS: BUN/Creatinine Ratio 17 (6-26); Blood Urea Nitrogen 21 mg/dL (8-26); Calcium 7.9 mg/dL (8.6-10.8); Carbon Dioxide 27 mEq/L (19-29); Chloride 106 mEq/L (98-109); Glucose 149 mg/dL (70-99); Magnesium 2.3 mg/dL (1.6-2.6); Osmolality,Calculated 302 (280-300); Sodium 143 mEq/L (136-145); eGFR For African Americans > 60 (> 60); eGFR For Non-African Americans 57 (> 60)
[2017-03-13 05:23] LABS: Platelet Count 77 K/mcL (140-400)
[2017-03-13 05:27] LABS: Lymphocytes # 1.1 K/mcL (0.6-4.6); Macrocytosis Present (Not Present); Monocytes # 0.8 K/mcL (0.0-1.3); Neutrophils # 11.3 K/mcL (1.6-8.9)
[2017-03-13 05:28] LABS: Anisocytosis 1+ (Not Present); Platelet Estimate Decreased (Normal); Reactive Lymphocytes Present (Not Present)
[2017-03-13 05:36] LABS: Potassium 3.2 mEq/L (3.5-4.5)
[2017-03-13] MEDS ORDERED: Potassium Chloride 40 MEQ, Lidocaine 1% 2 ML in D5% in Water 500 ML IVPB ONE (08:32)
[2017-03-13] MEDS: clonazePAM 0.5 MG TABLET PO SCH (08:51)
[2017-03-13] MEDS: Magnesium Oxide 400 MG TABLET PO SCH (08:52)
[2017-03-13] MEDS: Furosemide 20 MG TABLET PO SCH (08:52)
[2017-03-13] MEDS: Vitamin B Complex/Vit C/Vit E 1 EACH TABLET PO SCH (08:52)
[2017-03-13] MEDS: Aspirin 81 MG TAB.CHEW PO SCH (08:52)
[2017-03-13] MEDS: Pantoprazole 40 MG VIAL IVP SCH (08:52)
[2017-03-13] MEDS: amLODIPine 5 MG TABLET PO SCH (08:52)
[2017-03-13] MEDS: Metoprolol XL (24 HR) Succ 25 MG TAB.ER.24H PO SCH (08:53)
[2017-03-13] MEDS ORDERED: Potassium Chloride Elixir 20 MEQ/15 ML UDC PO SCH (09:00)
--- NOTE | 2017-03-13 10:18 | Palliative Progress Note ---
Date of Encounter: 03/13/17 Time of Encounter: 10:15 - Assessment and plan (1) Headache Current Visit: Yes Status: Acute Assessment and plan: Continues with Clonazepam low dose bid, and Percocet PRN. Utilized Percocet x1 last 24 hours. Monitor Qualifiers: Headache chronicity pattern: unspecified pattern Intractability: intractable Qualified Code(s): R51 - Headache (2) Goals of care, counseling/discussion Current Visit: Yes Status: Acute Assessment and plan: D/W daughter his poor po intake and minimal response. She questioned if IV fluids, labs, and electrolytes could be continued at [facility]. We had discussion regarding trajectory of illness with events the last 4 weeks, and that he may be approaching the end of life. Daughter does acknowledge that she believes his body is "tired" and he may be ready to pass. She did state she has obtained "essential oils" and is going to administer and give that a chance. She does state that if he may pass, she desires him comfortable and would not want to prolong the dying process with artificial hydration. Discussed how IV fluid may actually cause him discomfort if he is truly at the end of life, and that it will be almost impossible for his electrolytes to be normal if he is not taking food or fluid. Daughter acknowledge understanding, and states, " lets just get him over to [facility] where mom can spend more time with him". Anticipate D/C later today if OK with hospitalist. (3) CVA (cerebral vascular accident) Current Visit: Yes Status: Acute Qualifiers: CVA mechanism: unspecified Qualified Code(s): I63.9 - Cerebral infarction, unspecified (4) Liver masses Current Visit: Yes Status: Acute - Time Spent With Patient Total time spent is greater than 50% in coordination of care (as documented) at patient's floor/unit and/or counseling patient: 25 - 35 minutes - Subjective Interval history: Patient somnolent and difficult to arouse. Has refused feedings yesterday and this am. He opens eyes and drifts back to sleep. Nurse stated he did complain of back pain earlier. Daughter at bedside. - Constitutional Vitals: Abnormal lab results WBC 13.1 K/mcL (4.3-11.1) H 03/13/17 04:18 RBC 2.17 M/mcL (4.19-5.50) L 03/13/17 04:18 Hgb 7.6 g/dL (12.9-16.9) L 03/13/17 04:18 Hct 22.3 % (37.5-50.1) L 03/13/17 04:18 MCV 102.8 fL (83.0-100.0) H 03/13/17 04:18 MCH 35.0 pg (28.0-33.3) H 03/13/17 04:18 RDW 19.6 % (11.5-14.5) H 03/13/17 04:18 Plt Count 77 K/mcL (140-400) L 03/13/17 04:18 MPV 12.9 fL (9.4-12.4) H 03/13/17 04:18 Immature Gran % 6.7 % (0-4) H 03/10/17 05:37 Metamyelocytes % 2.0 % (0) H 03/11/17 04:47 Myelocytes % 6.0 % (0) H 03/11/17 04:47 Neutrophils # 11.3 K/mcL (1.6-8.9) H 03/13/17 04:18 Nucleated RBCs/100 WBC 1.3 /100 WBC (0) H 03/13/17 04:18 Reactive Lymphocytes Present (Not Present) A 03/13/17 04:18 Platelet Estimate Decreased (Normal) L 03/13/17 04:18 Large Platelets Present (Not Present) A 03/07/17 03:23 Immature Plt Fraction 14.2 % (1.1-6.1) H 03/13/17 04:18 Anisocytosis 1+ (Not Present) A 03/13/17 04:18 Microcytosis Present (Not Present) A 03/09/17 07:47 Macrocytosis Present (Not Present) A 03/13/17 04:18 APTT 24.6 Seconds (26.0-36.0) L 03/06/17 15:14 VBG pH 7.50 pH Units (7.32-7.42) H 03/06/17 15:25 VBG pO2 42 mmHg (25-40) H 03/06/17 15:25 VBG HCO3 36.7 mEq/L (21-27) H 03/06/17 15:25 Potassium 3.2 mEq/L (3.5-4.5) L D 03/13/17 04:18 Est GFR (Non-Af Amer) 57 (> 60) L 03/13/17 04:18 Glucose 149 mg/dL (70-99) H 03/13/17 04:18 Calculated Osmolality 302 (280-300) H 03/13/17 04:18 Calcium 7.9 mg/dL (8.6-10.8) L 03/13/17 04:18 % Saturation 56 % (20-55) H 03/08/17 04:54 Transferrin 158 mg/dL (174-364) L 03/08/17 04:54 Ferritin 510 ng/ml (22-275) H 03/08/17 04:54 Total Bilirubin 2.0 mg/dL (0.2-1.2) H 03/10/17 05:37 Direct Bilirubin 0.9 mg/dL (0.0-0.5) H 03/10/17 05:37 AST 55 Units/L (5-34) H 03/10/17 05:37 ALT 76 Units/L (0-55) H 03/10/17 05:37 Troponin I 0.19 ng/mL (0-0.03) H* 03/06/17 15:14 C-Reactive Protein 9 mg/L (Less than 5) H 03/11/17 04:47 B-Natriuretic Peptide 348 pg/mL (0-100) H 03/07/17 03:23 Serum Total Protein 5.1 g/dL (6.0-8.3) L 03/10/17 05:37 Albumin 3.0 g/dL (3.5-5.0) L 03/10/17 05:37 Globulin 2.1 g/dL (2.4-3.5) L 03/10/17 05:37 Carcinoembryonic Ag 9.4 ng/mL (0-5.0) H 03/11/17 04:47 Vitamin B12 1066 pg/mL (213-816) H 03/08/17 04:54 Urine Protein 100 mg/dL (Neg-Trace) H 03/06/17 14:55 Urine Blood Moderate (Negative) H 03/06/17 14:55 Urine Microscopic RBC 3-5 per hpf (0-3) H 03/06/17 14:55 Urine Microscopic WBC 3-5 per hpf (0-3) H 03/06/17 14:55 Ur Squamous Epith Cells Many per lpf (None-Few) H 03/06/17 14:55 Stool Occult Blood Positive (Negative) A 03/09/17 15:40 General appearance: Present: no acute distress - Expanded Respiratory Exam Location: rales: Left, Right, Lower - Cardiovascular Cardiovascular exam: Present: +S1, +S2 - GI/Abdominal GI/Abdominal exam: Present: normal bowel sounds, soft - Extremities Exam Additional comments: Bruising, skin tears to LUE - Neurological Exam Additional comments: Lethargic. will open eyes with tactile stimulation, does not follow commands at this time. - Skin Skin exam: Present: dry, pallor, warm Palliative Quality Palliative Quality: Screen for Code Status: Yes, Screen for Goals of Care: Yes, Screen for Pain: Yes, If Pain Regimen Started, Initiate Bowel Regimen: Yes, Screen for Nausea/Vomitting: Yes - Labs CBC & Chem 7: 03/13/17 04:18 03/13/17 04:18 Labs: Laboratory Results - last 24 hr 03/13/17 03/13/17 04:18 04:18 WBC 13.1 H RBC 2.17 L Hgb 7.6 L Hct 22.3 L MCV 102.8 H MCH 35.0 H MCHC 34.1 RDW 19.6 H Plt Count 77 L MPV 12.9 H Seg Neutrophils % 86.0 Lymphocytes % 8.0 Monocytes % 6.0 Neutrophils # 11.3 H Lymphocytes # 1.1 Monocytes # 0.8 Nucleated RBCs/100 WBC 1.3 H Reactive Lymphocytes Present A Platelet Estimate Decreased L Immature Plt Fraction 14.2 H Anisocytosis 1+ A Macrocytosis Present A Sodium 143 Potassium 3.2 L D Chloride 106 Carbon Dioxide 27 BUN 21 Creatinine 1.22 Est GFR ( Amer) > 60 Est GFR (Non-Af Amer) 57 L BUN/Creatinine Ratio 17 Glucose 149 H Calculated Osmolality 302 H Calcium 7.9 L Magnesium 2.3 - ABG Interpretation ABG results: PT/INR, D-dimer PT 11.7 Seconds (9.4-12.1) 03/06/17 15:14 Consult Discharge Plan - Plan Referrals: Arie Willis DO [Primary Care Provider] - (most likely going to ECF.. going to [facility])
--- NOTE | 2017-03-13 10:37 | Discharge Summary ---
Date of Encounter: 03/13/17 Time of Encounter: 10:28 - Discharge Diagnosis (1) Hypokalemia Priority: Secondary Status: Acute (2) DVT prophylaxis Priority: Secondary Status: Acute (3) CVA (cerebral vascular accident) Priority: Secondary Status: Acute Qualifiers: CVA mechanism: unspecified Qualified Code(s): I63.9 - Cerebral infarction, unspecified (4) Hypomagnesemia Priority: Secondary Status: Acute (5) Atrial fibrillation Priority: Secondary Status: Chronic Qualifiers: Atrial fibrillation type: paroxysmal Qualified Code(s): I48.0 - Paroxysmal atrial fibrillation (6) Thrombocytopenia Priority: Secondary Status: Chronic (7) Liver masses Priority: Primary Status: Acute - Discharge Medications Prescriptions: carBAMazepine [CarBAMazepine] 100 mg PO BID 14 Days clonazePAM [Klonopin] 0.25 mg PO DAILY #20 tablet clonazePAM [Klonopin] 0.25 mg PO DAILY@1999 #20 tablet LORazepam [Ativan] 0.5 mg PO Q4H PRN #20 tablet PRN Reason: Anxiety Oxycodone HCl/Acetaminophen [Percocet 7.5-325 mg Tablet] 1 each PO Q6H PRN #20 tablet PRN Reason: Pain Home Medications: Aspirin 81 mg PO DAILY 02/25/17 [History] Vitamin B Complex [B Complex] 1 tab PO DAILY 02/25/17 [History] Acetaminophen [Tylenol] 650 mg PO Q6HR PRN #0 tablet 03/02/17 [Rx] Acetaminophen/Butalbital/Caffe [Fioricet] 1 each PO Q6HR PRN #30 tablet [Rx] Clopidogrel [Plavix] 75 mg PO DAILY #30 tablet 03/02/17 [Rx] Docusate [Colace] 100 mg PO BID PRN #0 capsule 03/02/17 [Rx] Furosemide [Lasix] 20 mg PO BID #60 tablet 03/02/17 [Rx] Lisinopril [Zestril] 40 mg PO DAILY #30 tablet 03/02/17 [Rx] Metoprolol XL (24 HR) Succ [Toprol Xl] 25 mg PO DAILY tab.er.24h 03/02/17 [Rx] Potassium Chloride Elixir [Potassium Chloride] 20 meq PO BID #30 udc 03/02/17 [ Rx] amLODIPine [Norvasc] 10 mg PO DAILY #30 tablet 03/02/17 [Rx] Clopidogrel [Plavix] 75 mg PO DAILY tablet 03/13/17 [Rx] LORazepam [Ativan] 0.5 mg PO Q4H PRN #20 tablet 03/13/17 [Rx] Magnesium Oxide [Mag-Ox] 400 mg PO BID tablet 03/13/17 [Rx] Oxycodone HCl/Acetaminophen [Percocet 7.5-325 mg Tablet] 1 each PO Q6H PRN #20 tablet 03/13/17 [Rx] Tamsulosin [Flomax] 0.4 mg PO DAILY capsule 03/13/17 [Rx] carBAMazepine [CarBAMazepine] 100 mg PO BID 14 Days 03/13/17 [Rx] clonazePAM [Klonopin] 0.25 mg PO DAILY #20 tablet 03/13/17 [Rx] clonazePAM [Klonopin] 0.25 mg PO DAILY@1999 #20 tablet 03/13/17 [Rx] Allergies/Adverse Reactions: Allergies metoprolol [From Toprol XL] Adverse Reaction (Verified 03/06/17 16:20) See Comments PULSE DROPPED- AFTER HEART CATH, PULSE STAYED HIGH, PATIENT IS CURRENTLY TAKING MED WITH NO PROBLEMS Date of admission: 03/12/17 13:16 Primary care physician: Arie Willis Discharging clinician: Logan Chaudhary Anticipated date of discharge: 03/13/17 - Patient Status Disposition: Transfer SNF Condition: Fair Functional capacity at discharge: bed bound Overall status at discharge: patient is not back to baseline - Discharge Instructions Follow Up With: Arie Willis, [Primary Care Provider] - (most likely going to [facility].. going to [facility]) Forms: ED Satisfaction Letter - Diet and Activity Activity: increase activity as tolerated Diet: advance to your usual diet Interval History: Mr. Sterling is a 81 year old male With h/o coronary artery disease s/p NSTEMI on 02/25/[address] [facility] showed moderate three-vessel disease and patient received PCI/ drug-eluting stent placement to mid RCA, CHF / peripheral edema with LVEF of 60- 65%, dementia (as noted in the ER note), hyperlipidemia, hypertension, migraine , chronic dizziness. He was recently discharged to inpatient rehabilitation at [facility]. He was brought to the emergency department, for not progressing well. No family members at the bedside and the pt is not able to give significant clinical details, possibly due to his dementia. I have reviewed the notes from the ER provider. Pt is considered for admission for CHF, elevated troponin. Pt reports that I dont know. I dont feel well. He denies chest pain, shortness of breath, cough, abdominal pain, nausea or vomiting. He could not tell me about dizziness. Denies urinaly or bowel problems at this time. Otherwise he was not able to give further information. Hospital course: Mr. Sterling is a 81 year old male initially admitted due to NSTEMI on plavix and aspirin, along with fluids overload and leukocytosis , there was a concern for ubderlying pneumonia and was on broad spectrum antibiotics. Imaging was not concluive for pna, however, he was found to have multiple liver masses with radiological suspicion for a metastatic colon cancer, tumor markers were not consistent with malignancy. patient has been afebrile and antibiotics were stopped yesterday, patient has had hypokalemia and hypomagnesemia, both have improved with potassium and magnesum supplementation. ue to high probability of malignancy our palliative care team was consulted, they were on board and patient became dnr comfort care, family does not wish to pursue aggressive treatment even if found to have pathology diagnosis of cancer. patient will be discharge today to ecf and will transition to hospice eventually. discussed with the patient's daughter extensively. - Time Spent with Patient Total time spent providing and/or coordinating discharge services: - Constitutional Vitals: Temp Pulse Resp BP Pulse Ox 98.1 F 80 16 160/75 90 03/13/17 07:41 03/13/17 07:41 03/13/17 07:41 03/13/17 07:41 03/13/17 07:41 General appearance: Present: A&O X 1, no acute distress, answers questions appropriately - Head Head exam: Present: atraumatic, normocephalic - Eye Eye exam: Present: PERRL, conjuntiva pink, sclera anicteric Pupils: Present: PERRL - Neck Neck exam general surgery: Present: supple, trachea midline. Absent: lymphadenopathy - Respiratory Respiratory exam: Present: CTAB. Absent: accessory muscle use, rales, rhonchi, wheezes - Cardiovascular Cardiovascular exam: Present: RRR, +S1, +S2. Absent: diastolic murmur, gallop, rubs, systolic murmur - GI/Abdominal GI/Abdominal exam: Present: normal bowel sounds, soft, no peritoneal signs. Absent: distended, tenderness - Extremities Exam Extremities exam: Present: warm, radial pulses palpable and symetrical. Absent : calf tenderness, cyanotic, pedal edema - Neurological Exam Neurological exam: Present: CN II-XII intact, oriented X3, no focal deficits. Absent: pronater drift, facial droop, speech deficit - Skin Skin exam: Present: dry, intact - VTE Documentation of Mechanical Device: Intermittent pneumatic compression device
--- NOTE | 2017-03-13 10:51 | Physician Discharge Referral ---
ExtendedCare Referral Info Transfer To: [facility] - Diagnosis (1) Hypokalemia Status: Acute (2) DVT prophylaxis Status: Acute (3) CVA (cerebral vascular accident) Status: Acute (4) Hypomagnesemia Status: Acute (5) Atrial fibrillation Status: Chronic (6) Thrombocytopenia Status: Chronic (7) Liver masses Status: Acute - Transfer Medications Prescriptions: carBAMazepine [CarBAMazepine] 100 mg PO BID 14 Days clonazePAM [Klonopin] 0.25 mg PO DAILY #20 tablet clonazePAM [Klonopin] 0.25 mg PO DAILY@1999 #20 tablet LORazepam [Ativan] 0.5 mg PO Q4H PRN #20 tablet PRN Reason: Anxiety Oxycodone HCl/Acetaminophen [Percocet 7.5-325 mg Tablet] 1 each PO Q6H PRN #20 tablet PRN Reason: Pain Home Medications: Aspirin 81 mg PO DAILY 02/25/17 [History] Vitamin B Complex [B Complex] 1 tab PO DAILY 02/25/17 [History] Acetaminophen [Tylenol] 650 mg PO Q6HR PRN #0 tablet 03/02/17 [Rx] Acetaminophen/Butalbital/Caffe [Fioricet] 1 each PO Q6HR PRN #30 tablet [Rx] Clopidogrel [Plavix] 75 mg PO DAILY #30 tablet 03/02/17 [Rx] Docusate [Colace] 100 mg PO BID PRN #0 capsule 03/02/17 [Rx] Furosemide [Lasix] 20 mg PO BID #60 tablet 03/02/17 [Rx] Lisinopril [Zestril] 40 mg PO DAILY #30 tablet 03/02/17 [Rx] Metoprolol XL (24 HR) Succ [Toprol Xl] 25 mg PO DAILY tab.er.24h 03/02/17 [Rx] Potassium Chloride Elixir [Potassium Chloride] 20 meq PO BID #30 udc 03/02/17 [ Rx] amLODIPine [Norvasc] 10 mg PO DAILY #30 tablet 03/02/17 [Rx] Clopidogrel [Plavix] 75 mg PO DAILY tablet 03/13/17 [Rx] LORazepam [Ativan] 0.5 mg PO Q4H PRN #20 tablet 03/13/17 [Rx] Magnesium Oxide [Mag-Ox] 400 mg PO BID tablet 03/13/17 [Rx] Oxycodone HCl/Acetaminophen [Percocet 7.5-325 mg Tablet] 1 each PO Q6H PRN #20 tablet 03/13/17 [Rx] Tamsulosin [Flomax] 0.4 mg PO DAILY capsule 03/13/17 [Rx] carBAMazepine [CarBAMazepine] 100 mg PO BID 14 Days 03/13/17 [Rx] clonazePAM [Klonopin] 0.25 mg PO DAILY #20 tablet 03/13/17 [Rx] clonazePAM [Klonopin] 0.25 mg PO DAILY@1999 #20 tablet 03/13/17 [Rx] Allergies/Adverse Reactions: Allergies metoprolol [From Toprol XL] Adverse Reaction (Verified 03/06/17 16:20) See Comments PULSE DROPPED- AFTER HEART CATH, PULSE STAYED HIGH, PATIENT IS CURRENTLY TAKING MED WITH NO PROBLEMS - Respiratory Orders Oxygen / L per min Smoking Cessation: Smoking cessation has been advised. For more information, call the [employer] Tobacco Quit Line at 2-310-AIMP-NOW. - Advance Directives Code Status: DNR-Comfort Care - Mobility Orders Bedrest - Rehabiliation Orders Rehab Potential: Poor Rehab Orders: ROM Exercises, Evaluation for Physical Therapy - Treatments Skin tear care topically daily PRN per policy - Diet Orders Pureed CERTIFICATION: I certify that the transfer of the above named patient to an Extended Care Facility is necessary for the continuing treatment of the diagnosis listed. The above information is true and accurate reflection of patient's current condition. Confidential - Redisclosure prohibited without a patient's written consent.
[2017-03-13 11:12] VITALS: BP 123/68
== END 2017-03-13 13:23 | DRG 64 ==
LOC: 2ANU 14:27 → EMEROO 14:27 → SUATTDRO 17:39 → 2ANU 18:16
PROVIDERS: ADMIT Internal Medicine; ATTEND Internal Medicine